=== PATIENT | female | born 1980 | race Caucasian/White ===

== ENCOUNTER 2021-02-15 14:26 | Emergency (ER) | payer OTHER, SELFPAY ==
[2021-02-15 14:29] VITALS: BP 130/80; BP 159/90; PULSE 80; PULSE 96; RESP 18; TEMP 37.2; O2SAT 96; BMI 34.3
== END 2021-02-15 21:15 | disposition left against medical advice (07) ==
PROVIDERS: Emergency Provider Emergency Medicine; PCP Nurse Practitioner Family
DX: F41.1 Generalized anxiety disorder (principal); F43.0 Acute stress reaction
CPT/HCPCS: 99281; 99282

== ENCOUNTER 2021-04-16 23:53 | Emergency (ER) | payer OTHER, SELFPAY ==
--- NOTE | 2021-04-17 00:03 | ED_ITS ---
HPI - Skin/Abscess/Foreign Bdy General Chief complaint: Skin/Abscess/Foreign Body Stated complaint: Spider bite Time Seen by Provider: 04/17/21 00:03 Source: patient Mode of arrival: ambulatory Limitations: no limitations History of Present Illness MD complaint: abscess/boil Onset (ago): week(s) (1) Tetanus up to date: yes Location: generalized (LLQ of abdomen) Severity: moderate Quality: burning Pain Consistency: constant Relieving factors: none Exacerbating factors: palpation Context: other (thinks she was bit by a bug) Associated symptoms: denies other symptoms Treatments prior to arrival: bandages Related Data Previous Rx's Medication Instructions Recorded cephalexin 500 mg capsule 500 mg PO TID 7 Days #21 cap 04/17/21 doxycycline hyclate 100 mg capsule 100 mg PO BID 7 Days #14 cap 04/17/21 ondansetron 4 mg disintegrating 4 mg PO Q8H PRN #20 tab 04/17/21 tablet Allergies Allergy/AdvReac Type Severity Reaction Status Date / Time fluticasone [From FLONASE] Allergy Severe NOSEBLEEDS/ Unverified 03/12/20 16:29 CLAMMY ibuprofen [Ibuprofen] Allergy Intermediate HIVES Unverified 03/12/20 16:29 latex [Latex] Allergy Mild RASH Unverified 03/12/20 16:29 Iodinated Contrast Media Allergy Unknown ITCHY ( Unverified 03/12/20 16:29 [IV Dye, Iodine Containing] CONTRAST FOR CT ) sulfamethoxazole AdvReac Unknown NAUSEA & Unverified 03/12/20 16:29 [From BACTRIM] VOMITING trimethoprim [From BACTRIM] AdvReac Unknown NAUSEA & Unverified 03/12/20 16:29 VOMITING From Advair Diskus Allergy Intermediate SHORTNESS Uncoded 03/12/20 16:29 OF BREATH Advair HFA Allergy Unknown chest pain Uncoded 02/21/12 00:00 Flonase Allergy Unknown headaches, Uncoded 02/21/12 00:00 nose bleeds Ibuprofen Allergy Unknown upset Uncoded 02/21/12 00:00 stomach Latex Gloves Allergy Unknown rash Uncoded 02/21/12 00:00 Sulfa Allergy Unknown hives Uncoded 02/21/12 00:00 Contrast Dye AdvReac Unknown hives Uncoded 07/26/19 00:00 Review of Systems Review of Systems: Constitutional : No Fever, No Chills ENT/Mouth : No sore throat, No Rhinorrhea Eyes: No Eye Pain, No Swelling, No Redness Cardiovascular : No Chest Pain, No SOB Respiratory : No Cough, No Sputum Gastrointestinal : No Nausea, No Vomiting, No Diarrhea, No abdominal Pain Genitourinary : No Dysuria, No Hematuria Musculoskeletal : No joint pain, No Myalgias, No Joint Swelling Skin : No Skin Lesions, positive skin rash Neuro : No Weakness, No Numbness, No Headache [facility] Social History Social History Advance Directives: No Advance Directives Information Provided: No Patient : No Physical Exam Vital Signs: Vital Signs: Last Vital Signs Temp 98.3 F 04/17/21 00:11 Pulse 100 04/17/21 00:11 Resp 16 04/17/21 00:11 BP 112/85 04/17/21 00:11 Pulse Ox 96 04/17/21 00:11 Body Mass Index 42.9 Appearance: Alert. Oriented X3. No acute distress. Eyes: Pupils equal, round and reactive to light. ENT: Pharynx normal. Neck: Normal inspection. Neck supple. CVS: Normal heart rate and rhythm. Pulses normal. Respiratory: No respiratory distress. Breath sounds normal. Abdomen: Soft and LLQ area mild erythema and warmth, small 2cm purulent lesion noted with drainage on its own, no necrosis, no sig extension it is superficial and no fluctuance or induration felt underneath the lesion Skin: Skin warm and dry. Normal skin color. Normal skin turgor. Extremities: No lower extremity edema. No calf ttp Neuro: Oriented X 3. No motor deficit. No sensory deficit. MDM - Skin/Abscess/Foreign Bdy MDM Narrative Medical decision making narrative: 41 yo female here with possible bite to LLQ area has mild cellulitis it is already draining - small 2cm it is very superficial she is not a diabetic not having fevers - at this time will allow area to drain as it already is, PO cephalexin and doxy, anticipate DC home with good wound care precautions Discharge Plan Discharge Clinical Impression: Cellulitis Qualifiers: Site of cellulitis: trunk Site of cellulitis of trunk: abdominal wall Qualified Code(s): L03.311 - Cellulitis of abdominal wall Abscess of skin or subcutaneous tissue Qualifiers: Site of cutaneous abscess: trunk Site of cutaneous abscess of trunk: abdominal wall Qualified Code(s): L02.211 - Cutaneous abscess of abdominal wall Patient Disposition: Home, Self-Care Instructions: Cellulitis (ED), Abscess (ED) Additional Instructions: return to ED for any worsening symptoms or concerns if not better in 24 hours please return or if it is worsening. REMOVE THE GEL in 30 minutes. keep the area clean and covered. do not soak Prescriptions: New doxycycline hyclate 100 mg capsule 100 mg PO BID 7 Days Qty: 14 RF: 0 cephalexin 500 mg capsule 500 mg PO TID 7 Days Qty: 21 RF: 0 ondansetron 4 mg tablet,disintegrating 4 mg PO Q8H PRN (Reason: nausea and vomiting) Qty: 20 RF: 0 Stand Alone Forms: Work/School Release
[2021-04-17 00:11] VITALS: BP 112/85; PULSE 100; RESP 16; TEMP 36.8; O2SAT 96; BMI 42.9
[2021-04-17] MEDS: Ondansetron ODT 4 MG TAB.RAPDIS TRANSLINGU (00:20)
[2021-04-17] MEDS: Lidocaine/Epineph/Tetracaine 3 ML GEL.PF.APP TOPICAL (00:20)
[2021-04-17] MEDS: cephALEXin 500 MG CAPSULE PO (00:20)
== END 2021-04-17 00:36 | disposition home or self-care (01) ==
PROVIDERS: Emergency Provider Emergency Medicine
DX: L03.311 Cellulitis of abdominal wall (principal); L02.211 Cutaneous abscess of abdominal wall; R10.32 Left lower quadrant pain; Z79.899 Other long term (current) drug therapy
CPT/HCPCS: 99283

== ENCOUNTER 2023-01-03 23:30 | Emergency (ER) | payer OTHER, SELFPAY ==
[2023-01-03 23:41] VITALS: BP 151/87; PULSE 102; RESP 20; TEMP 37.1; O2SAT 97; BMI 19.2
--- NOTE | 2023-01-03 23:47 | PC.NURSE ---
pt is refusing to foreign exchange dealer, security called and pt checked for substances. pt is stating that she doesnt want to be here. pt bag taken and to decon.
--- OUTSIDE RECORDS SUMMARY | 2023-01-04 | XMS_ITS | Continuity of Care Document ---
Author Name Unknown Organization [facility] Address [address] [place] [address]- Care Team Providers Care Metal Hanger Name Role Phone Tammy Duarte NP Primary Care Physician [phone] [place] [facility] [place]/17/20 - 02/21/20 [facility]/[address] [address]- [facility] Attending Physician: Tammy Duarte NP Admitting Physician: Tammy Duarte NP Allergies, Adverse Reactions, Alerts Substance Reaction Severity Status Flonase Active Motrin Active Latex Active Advair Diskus Active Immunizations Given and Recorded Vaccine Date Status Refusal Reason influenza virus vaccine, inactivated 04/28/16 Give n Pneumococcal Poly (PPV23) (oldterm) 02/09/07 Given Medications albuterol 0.083% inhalation solution 3 mL = 2.5 mg, Inhalation, Every 6 hours, PRN for wheezing, dx: asthma, # 25 each, 0 Refills, Maintenance, 01/09/20 16:40:00 EDT, Solution, [id number], 166, cm, 12/26/19 7:38:00 EDT, Height Start Date: 01/09/20 Status: Ordered albuterol CFC free 90 mcg/inh inhalation aerosol 2, puffs, Inhalation, 4 times a day, PRN, # 1 each, Refills 6, Tot. Refills 6, Maintenance, 08/13/19 11:20:00 EST, Aerosol, Route to Pharmacy Electronically, [id number], [id number], 166, cm, 08/09/19 14:34:00 EST, Height Start Date: 08/13/19 Stop Date: 03/10/20 Status: Ordered epinephrine 0.3 mg injectable solution See Instructions, Intramuscular Once may repeat if necessary. auto injector, # 2 each, 0 Refills, Soft Stop, 08/22/19 18:49:00 EST, [facility]/pharmacy #[id number], 166, cm, 08/09/19 14:34:00 EST, Height Start Date: 08/22/19 Status: Ordered EpiPen 2-Kelvin 0.3 mg injectable kit = 0.3 mg, Intramuscular, Once, may repeat if necessary. auto injector., # 1 kit, 0 Refills, Soft Stop, 08/20/19 11:50:00 EST, [facility]/pharmacy #[id number], 166, cm, 08/09/19 14:34:00 EST, Height Start Date: 08/20/19 Status: Ordered nebulizer machine with mask and tubing nebulizer machine with mask and tubing, See Instructions, # 1 each, Refills 0, Tot. Refills 0, Maintenance, to use with albuterol solution as needed for asthma. dx: asthma, 01/09/20 16:38:00 EDT, Supply Start Date: 01/09/20 Status: Ordered nicotine 21 mg/24 hr transdermal film, extended release 1 patch, Topically, Daily, to increase the nicotine dose to 21mg, # 30 patch, 1 Refills, Maintenance, 01/09/20 16:31:00 EDT, Patch, [facility]/pharmacy #[id number], 1 patch Topically Daily,Instr:to increase the nicotine dose to 21mg, 166, cm, 12/26/19 7:38:00 EDT,... Start Date: 01/09/20 Status: Ordered salmeterol 50 mcg inhalation powder 1 each = 50 mcg, Inhalation, Every 12 hours, # 28 each, 1 Refills, Maintenance, 01/19/20 14:20:00 EDT, Powder, [facility]/pharmacy #[id number], 1 each Inhalation Every 12 hours, 166, cm, 12/26/19 7:38:00 EDT, Height Start Date: 01/19/20 Status: Ordered Singulair 10 mg oral tablet 10 mg, 1, tablet, By Mouth, Daily, # 30 tablet, Refills 3, Tot. Refills 3, Maintenance, 01/09/20 16:32:00 EDT, Route to Pharmacy Electronically, [facility]/pharmacy #[id number], 166, cm, 12/26/19 7:38:00 EDT, Height Start Date: 01/09/20 Status: Ordered spacer spacer, See Instructions, # 1 each, Refills 0, Tot. Refills 0, Maintenance, to use with albuterol inhaler, 01/09/20 16:37:00 EDT, Supply, 166, cm, 12/26/19 7:38:00 EDT, Height Start Date: 01/09/20 Status: Ordered Social History Social History Type Response Smoking Status Current every day jordan tejada; Tobacco user in household: No; Type: Cigarettes; Other: 1 PACK A DAY; entered on: 04/28/16 Sex
--- OUTSIDE RECORDS SUMMARY | 2023-01-04 00:01 | XMS_ITS | Continuity of Care Document ---
Author Name Unknown Organization [facility] Address [address] [place] [address]- Care Team Providers Care Software Configuration Analyst Name Role Phone Felicia KURTZ, Tammy Guadarrama Primary Care Physician [place] [facility] [place]/15/20 - 02/14/20 [facility]/[address] [address]- [facility] Allergies, Adverse Reactions, Alerts Substance Reaction Severity [...] 11:20:00 EST, Aerosol, Route to Pharmacy Electronically, [id number], [facility]/pharmacy #[id number], 166, cm, 08/09/19 14:34:00 EST, Height Start Date: 08/13/19 Stop Date: 03/10/20 Status: Ordered epinephrine 0.3 mg injectable solution See Instructions, Intramuscular Once may repeat if necessary. auto injector, # 2 each, 0 Refills, Soft Stop, 08/22/19 18:49:00 EST, [facility]/pharmacy #[id number], 166, cm, 08/09/19 14:34:00 EST, Height Start Date: 08/22/19 Status: Ordered EpiPen 2-Kelvin 0.3 mg injectable kit = 0.3 mg, Intramuscular, Once, may repeat if necessary. auto injector., # 1 kit, 0 Refills, Soft Stop, 08/20/19 11:50:00 EST, [facility]/pharmacy #[id number], 166, cm, 08/09/19 14:34:00 EST, Height [...] 1 Refills, Maintenance, 01/09/20 16:31:00 EDT, Patch, [facility]/pharmacy #[id number], 1 patch Topically Daily,Instr:to increase the nicotine dose to 21mg, 166, cm, 12/26/19 7:38:00 EDT,... Start Date: 01/09/20 Status: Ordered salmeterol 50 mcg inhalation powder 1 each = 50 mcg, Inhalation, Every 12 hours, # 28 each, 1 Refills, Maintenance, 01/19/20 14:20:00 EDT, Powder, [facility]/pharmacy #[id number], 1 each Inhalation Every 12 hours, 166, cm, 12/26/19 7:38:00 EDT, Height Start Date: 01/19/20 Status: Ordered Singulair 10 mg oral tablet 10 mg, 1, tablet, By Mouth, Daily, # 30 tablet, Refills 3, Tot. Refills 3, Maintenance, 01/09/20 16:32:00 EDT, Route to Pharmacy Electronically, [facility]/pharmacy #[id number], 166, cm, 12/26/19 7:38:00 EDT, Height [...]
--- OUTSIDE RECORDS SUMMARY | 2023-01-04 00:01 | XMS_ITS | Continuity of Care Document ---
Author Name Unknown Organization [facility] Address [address] [place] [address]- Care Team Providers Care Locomotive Operator Name Role Phone Felicia KURTZ, Tammy Guadarrama Primary Care Physician Encounter [facility] [place] Date(s): 03/25/20 - 04/24/20 [facility]/[address] [address]- [facility] Allergies, Adverse Reactions, Alerts Substance Reaction Severity [...] 11:20:00 EST, Aerosol, Route to Pharmacy Electronically, [id number], [id number], 166, cm, 08/09/19 14:34:00 EST, Height Start Date: 08/13/19 Stop Date: 03/10/20 Status: Ordered buPROPion 300 mg/24 hours (XL) oral tablet, extended release 1 tablet = 300 mg, By Mouth, Daily, do not crush or chew. stop 150 bid and start 300 xl daily in am, # 30 tablet, 3 Refills, Maintenance, 04/09/20 15:07:00 EDT, ER Tablet, [facility]/pharmacy #[id number], 166, cm, 04/07/20 9:41:00 EDT, Height, 111, kg, 04/07/20 9... Start Date: 04/09/20 Status: Ordered epinephrine 0.3 mg injectable solution See Instructions, Intramuscular Once may repeat if necessary. auto injector, # 2 each, 0 Refills, Soft Stop, 08/22/19 18:49:00 EST, [id number], 166, cm, 08/09/19 14:34:00 EST, Height Start Date: 08/22/19 Status: Ordered EpiPen 2-Kelvin 0.3 mg injectable kit = 0.3 mg, Intramuscular, Once, may repeat if necessary. auto injector., # 1 kit, 0 Refills, Soft Stop, 08/20/19 11:50:00 EST, [id number], 166, cm, 08/09/19 14:34:00 EST, Height Start Date: 08/20/19 Status: Ordered Narcan 4 mg/0.1 mL nasal spray = 4 mg, Nares, Both, Once, # 2 each, 3 Refills, Soft Stop, 03/27/20 11:07:00 EDT, [id number], 166, cm, 03/18/20 8:48:00 EDT, Height Start Date: 03/27/20 Status: Ordered nebulizer machine with mask and tubing nebulizer machine with mask and tubing, See Instructions, # 1 each, Refills 0, Tot. Refills 0, Maintenance, to use with albuterol solution as needed for asthma. dx: asthma, 01/09/20 16:38:00 EDT, Supply Start Date: 01/09/20 Status: Ordered salmeterol 50 mcg inhalation powder 1 each = 50 mcg, Inhalation, Every 12 hours, # 28 each, 1 Refills, Maintenance, 03/27/20 10:48:00 EDT, Powder, [facility]/pharmacy #[id number], 1 each Inhalation Every 12 hours, 166, cm, 03/18/20 8:48:00 EDT, Height Start Date: 03/27/20 Status: Ordered sertraline 25 mg oral tablet 1 tablet = 25 mg, By Mouth, Daily, new medication, # 30 tablet, 2 Refills, Maintenance, 04/09/20 15:29:00 EDT, Tablet, [facility]/pharmacy #[id number], 166, cm, 04/07/20 9:41:00 EDT, Height, 111, kg, 04/07/20 9:41:00 EDT, Dry Weight Start Date: 04/09/20 Stop Date: 07/08/20 Status: Ordered Singulair 10 mg oral tablet 10 mg, 1, tablet, By Mouth, Daily, # 30 tablet, Refills 3, Tot. Refills 3, Maintenance, 01/09/20 16:32:00 EDT, Route to Pharmacy Electronically, [facility]/pharmacy #[id number], 166, cm, 12/26/19 7:38:00 EDT, Height Start Date: 01/09/20 Status: Ordered spacer spacer, See Instructions, # 1 each, Refills 0, Tot. Refills 0, Maintenance, to use with albuterol inhaler, 01/09/20 16:37:00 EDT, Supply, 166, cm, 12/26/19 7:38:00 EDT, Height Start Date: 01/09/20 Status: Ordered Social History Social History Type Response Smoking Status 10 or more cigarette s (1/2 pack or more)/day in last 30 days; Tobacco user in household: Yes; Other: Reports increased use due to stress. Looking to cut back, hopeful with Wellbutrin; entered on: 03/31/20 Sex
--- OUTSIDE RECORDS SUMMARY | 2023-01-04 00:01 | XMS_ITS | Continuity of Care Document ---
Author Name Unknown Organization [facility] Address [address] [place] [address]- Care Team Providers Care Order Dispatcher Name Role Phone Felicia KURTZ, Tammy Guadarrama Primary Care Physician Encounter [facility] [place] Date(s): 10/09/20 - 11/08/20 [facility]/[address] [address]- Allergies, Adverse Reactions, Alerts Substance Reaction Severity [...] each, Refills 6, Tot. Refills 6, Maintenance, 06/12/20 16:33:00 EST, Aerosol, Route to Pharmacy Electronically, [id number], [id number], 166, cm, 06/12/20 14:55:00 EST, Hei... Start Date: 06/12/20 Stop Date: 01/08/21 Status: Ordered buPROPion 300 mg/24 hours (XL) oral tablet, extended release 1 tablet = 300 mg, By Mouth, Daily, do not crush or chew. stop 150 bid and start 300 xl daily in am, # 30 tablet, 5 Refills, Maintenance, 08/12/20 16:28:00 EST, ER Tablet, [id number], 166, cm, 06/12/20 14:55:00 EST, Height, 111, kg, 04/07/20... Start Date: 08/12/20 Status: Ordered epinephrine 0.3 mg injectable solution [...] hours, # 28 each, 1 Refills, Maintenance, 06/12/20 16:32:00 EST, Powder, [id number], 1 each Inhalation Every 12 hours, 166, cm, 06/12/20 14:55:00 EST, Height, 111, kg, 04/07/20 9:41:00 EDT, Dry Weight Start Date: 06/12/20 Status: Ordered sertraline 50 mg oral tablet 1 tablet, By Mouth, Daily, # 30 tablet, 3 Refills, Maintenance, 10/26/20 23:22:00 EDT, [id number], 166, cm, 09/18/20 11:41:00 EDT, Height, 111, kg, 04/07/20 9:41:00 EDT, Dry Weight Start Date: 10/26/20 Status: Ordered Singulair 10 mg oral tablet 10 mg, 1, tablet, By Mouth, Daily, # 30 tablet, Refills 5, Tot. Refills 5, Maintenance, 10/09/20 11:45:00 EDT, Route to Pharmacy Electronically, [facility]/pharmacy #[id number], 166, cm, 09/18/20 11:41:00 EDT, Height, 111, kg, 04/07/20 9:41:00 EDT, Dry Weight Start Date: 10/09/20 Status: Ordered spacer spacer, See Instructions, # [...] cut back, hopeful with Wellbutrin; entered on: 09/03/20 Sex
--- OUTSIDE RECORDS SUMMARY | 2023-01-04 00:01 | XMS_ITS | Continuity of Care Document ---
Author Name Unknown Organization [facility] Address [address] [place] [address]- Care Team Providers Care Mining Plant Operator Name Role Phone Felicia KURTZ, Tammy Guadarrama Primary Care Physician En[place] [facility] [place] [id number] Date(s): 01/29/20 - 02/28/20 [facility] [address] [place] [address]- [facility] Attending Physician: Admtr, Ar8 Admitting Physician: Admtr, Ar8 Referring Physician: Admtr, Ar8 Allergies, Adverse Reactions, Alerts Substance Reaction Severity [...] 11:20:00 EST, Aerosol, Route to Pharmacy Electronically, [id number], [id number], 166, cm, 08/09/19 14:34:00 EST, Height Start Date: 08/13/19 Stop Date: 03/10/20 Status: Ordered epinephrine 0.3 mg injectable solution See Instructions, Intramuscular Once may repeat if necessary. auto injector, # 2 each, 0 Refills, Soft Stop, 08/22/19 18:49:00 EST, [facility]/pharmacy #[id number], 166, cm, 08/09/19 14:34:00 EST, Height Start Date: 08/22/19 Status: Ordered EpiPen 2-Kelvin 0.3 mg injectable kit = 0.3 mg, Intramuscular, Once, may repeat if necessary. auto injector., # 1 kit, 0 Refills, Soft Stop, 08/20/19 11:50:00 EST, [facility]/pharmacy #[id number], 166, cm, 08/09/19 14:34:00 [...] 1 Refills, Maintenance, 01/09/20 16:31:00 EDT, Patch, [facility]/pharmacy #[id number], 1 patch Topically Daily,Instr:to increase the nicotine dose to 21mg, 166, cm, 12/26/19 7:38:00 EDT,... Start Date: 01/09/20 Status: Ordered salmeterol 50 mcg inhalation powder 1 each = 50 mcg, Inhalation, Every 12 hours, # 28 each, 1 Refills, Maintenance, 01/19/20 14:20:00 EDT, Powder, [facility]/pharmacy #[id number], 1 each Inhalation Every 12 hours, 166, cm, 12/26/19 7:38:00 EDT, Height Start Date: 01/19/20 Status: Ordered Singulair 10 mg oral tablet 10 mg, 1, tablet, By Mouth, Daily, # 30 tablet, Refills 3, Tot. Refills 3, Maintenance, 01/09/20 16:32:00 EDT, Route to Pharmacy Electronically, [facility]/pharmacy #[id number], 166, cm, 12/26/19 7:38:00 [...]
--- OUTSIDE RECORDS SUMMARY | 2023-01-04 00:01 | XMS_ITS | Continuity of Care Document ---
Author Name Unknown Organization [facility] Address Unknown Care Team Providers Care Catalytic Converter Operator Helper Name Role Phone Xenia KURTZ, Awa Akbar Primary Care Physici an Encounter [facility] [place] Date(s): 04/20/21 - 05/26/21 [facility] Attending Physician: Hang Mcgrath MD Admitting Physician: Hang Mcgrath MD Allergies, Adverse Reactions, Alerts Substance Reaction Severity Status Flonase Active Motrin Active Latex Active Advair Diskus Active Immunizations Given and Recorded Vaccine Date Status Refusal Reason influenza virus vaccine, inactivated 04/28/16 Give n influenza virus vaccine, inactivated 04/10/15 Yanick rded influenza virus vaccine, inactivated 04/16/14 Yanick rded influenza virus vaccine, inactivated 03/14/10 Yanick rded hepatitis B adult vaccine 03/13/15 Recorded hepatitis B adult vaccine 09/12/13 Recorded hepatitis B adult vaccine 04/14/13 Recorded Hepatitis A Adult Vaccine 10/09/14 Recorded Hepatitis A Adult Vaccine 10/13/13 Recorded Pneumococcal Poly (PPV23) (oldterm) 02/09/07 Given Medications [...] 16:33:00 EST, Aerosol, Route to Pharmacy Electronically, [id number], [facility]/pharmacy #[id number], 166, cm, 06/12/20 14:55:00 EST, Hei... Start Date: 06/12/20 Stop Date: 01/08/21 Status: Ordered buPROPion 300 mg/24 hours (XL) oral tablet, extended release 1 tablet = 300 mg, By Mouth, Daily, do not crush or chew, # 30 tablet, 0 Refills, Maintenance, 04/21/21 12:25:00 EDT, ER Tablet, [facility]/pharmacy #[id number], 166, cm, 10/27/20 9:55:00 EDT, Height, 111, kg, 04/07/20 9:41:00 EDT, Dry Weight Start Date: 04/21/21 Status: Ordered cloNIDine 0.2 mg oral tablet 0.2 mg, 1, tablet, By Mouth, 2 times a day, NEED TO CONTACT CLINIC AND GET LABS DONE PRIOR TO NEXT REFILL, # 14 tablet, Refills 0, Tot. Refills 0, Maintenance, 05/21/21 12:13:00 EST, Route to Pharmacy Electronically, [facility]/pharmacy #[id number], Partial fill u... Start Date: 05/21/21 Stop Date: 05/28/21 Status: Ordered epinephrine 0.3 mg injectable solution See Instructions, Intramuscular Once may repeat if necessary. auto injector, # 2 each, 0 Refills, Soft Stop, 08/22/19 18:49:00 EST, [facility]/pharmacy #[id number], 166, cm, 08/09/19 14:34:00 EST, Height Start Date: 08/22/19 Status: Ordered EpiPen 2-Kelvin 0.3 mg injectable kit = 0.3 mg, Intramuscular, Once, may repeat if necessary. auto injector., # 1 kit, 0 Refills, Soft Stop, 08/20/19 11:50:00 EST, [facility]/pharmacy #[id number], 166, cm, 08/09/19 14:34:00 EST, Height Start Date: 08/20/19 Status: Ordered Narcan 4 mg/0.1 mL nasal spray = 4 mg, Nares, Both, Once, # 2 each, 3 Refills, Soft Stop, 03/27/20 11:07:00 EDT, [facility]/pharmacy #[id number], 166, cm, 03/18/20 8:48:00 EDT, Height [...] 1 Refills, Maintenance, 06/12/20 16:32:00 EST, Powder, [facility]/pharmacy #[id number], 1 each Inhalation Every 12 hours, 166, cm, 06/12/20 14:55:00 EST, Height, 111, kg, 04/07/20 9:41:00 EDT, Dry Weight Start Date: 06/12/20 Status: Ordered sertraline 100 mg oral tablet 1.5 tablet = 150 mg, By Mouth, Daily, # 45 tablet, 11 Refills, Maintenance, 04/22/21 14:20:00 EDT, Tablet, [facility]/pharmacy #[id number], Partial fill upon patient request if the prescription is for a schedule II opioid drug., 166, cm, 04/22/21 13:45:00 EDT, Hei... Start Date: 04/22/21 Status: Ordered Singulair 10 mg oral tablet 10 mg, 1, tablet, By Mouth, Daily, # 30 tablet, Refills 5, Tot. Refills 5, Maintenance, 10/09/20 11:45:00 EDT, Route to Pharmacy Electronically, [facility]/pharmacy #[id number], 166, cm, 09/18/20 11:41:00 EDT, [...]
--- OUTSIDE RECORDS SUMMARY | 2023-01-04 00:01 | XMS_ITS | Continuity of Care Document ---
Author Name Unknown Organization [facility] Address [address] [place] [address]- Care Team Providers Care Child Care Centre Director Name Role Phone Felicia KURTZ, Tammy Guadarrama Primary Care Physician Encounter [facility] [place] Date(s): 10/05/20 - 11/04/20 [facility]/[address] [address]- Attending Physician: Not on Staff, Attending MD Allergies, Adverse Reactions, Alerts Substance Reaction [...] 16:33:00 EST, Aerosol, Route to Pharmacy Electronically, [id number], [id number], 166, cm, 06/12/20 14:55:00 EST, Hei... Start Date: 06/12/20 Stop Date: 01/08/21 Status: Ordered buPROPion 300 mg/24 hours (XL) oral tablet, extended release 1 tablet = 300 mg, By Mouth, Daily, do not crush or chew. stop 150 bid and start 300 xl daily in am, # 30 tablet, 5 Refills, Maintenance, 08/12/20 16:28:00 EST, ER Tablet, [facility]/pharmacy #[id number], 166, cm, 06/12/20 14:55:00 EST, Height, [...] Refills, Maintenance, 10/26/20 23:22:00 EDT, [id number], 166, cm, 09/18/20 11:41:00 EDT, Height, 111, kg, 04/07/20 9:41:00 EDT, Dry Weight Start Date: 10/26/20 Status: Ordered Singulair 10 mg oral tablet 10 mg, 1, tablet, By Mouth, Daily, # 30 tablet, Refills 5, Tot. Refills 5, Maintenance, 10/09/20 11:45:00 EDT, Route to Pharmacy Electronically, [facility]/pharmacy #[id number], 166, cm, 09/18/20 11:41:00 EDT, Height, [...]
--- OUTSIDE RECORDS SUMMARY | 2023-01-04 00:01 | XMS_ITS | Continuity of Care Document ---
Author Name Unknown Organization [facility] Address Unknown Care Team Providers Care Fisheries Inspector Name Role Phone Xenia KURTZ, Awa Akbar Primary Care Physici an Encounter [facility] [place] Date(s): 04/21/21 - 06/04/21 [facility] Attending Physician: Xenia KURTZ, Awa Akbar Admitting Physician: Xenia KURTZ, Awa Akbar Allergies, Adverse Reactions, Alerts Substance Reaction Severity [...] each, Refills 6, Tot. Refills 6, Maintenance, 12/18/20 16:33:00 EST, Aerosol, Route to Pharmacy Electronically, [id number], [id number], cm, 06/12/20 14:55:00 EST, Hei... Start Date: 06/12/20 Stop Date: 01/08/21 Status: Ordered buPROPion 300 mg/24 hours (XL) oral tablet, extended release 1 tablet = 300 mg, By Mouth, Daily, do not crush or chew, # 30 tablet, 0 Refills, Maintenance, 04/21/21 12:25:00 EDT, ER Tablet, [facility]/pharmacy #[id number], 166, cm, 10/27/20 9:55:00 EDT, Height, 111, kg, 04/07/20 9:41:00 EDT, Dry Weight Start Date: 04/21/21 Status: Ordered cloNIDine 0.2 mg oral tablet 0.2 mg, 1, tablet, By Mouth, 2 times a day, NEED TO CONTACT CLINIC AND GET LABS DONE PRIOR TO NEXT REFILL, # 14 tablet, Refills 0, Tot. Refills 0, Maintenance, 05/21/21 12:13:00 EST, [id number] u... Start Date: 05/21/21 Stop Date: 05/28/21 Status: Ordered epinephrine 0.3 mg injectable solution See Instructions, Intramuscular Once may repeat if necessary. auto injector, # 2 each, 0 Refills, Soft Stop, 08/22/19 18:49:00 EST, [facility]/pharmacy #[id number], 166, cm, 08/09/19 14:34:00 EST, Height Start Date: 08/22/19 Status: Ordered EpiPen 2-Kelvin 0.3 mg injectable kit = 0.3 mg, Intramuscular, Once, may repeat if necessary. auto injector., # 1 kit, 0 Refills, Soft Stop, 08/20/19 11:50:00 EST, [facility]/pharmacy #[id number], 166, cm, 08/09/19 14:34:00 EST, Height Start Date: 08/20/19 Status: Ordered Narcan 4 mg/0.1 mL nasal spray = 4 mg, Nares, Both, Once, # 2 each, 3 Refills, Soft Stop, 03/27/20 11:07:00 EDT, [facility]/pharmacy #[id number], 166, cm, 03/18/20 8:48:00 EDT, [...] 1 Refills, Maintenance, 06/12/20 16:32:00 EST, Powder, [facility]/pharmacy #[id number], 1 each Inhalation Every 12 hours, 166, cm, 06/12/20 14:55:00 EST, Height, 111, kg, 04/07/20 9:41:00 EDT, Dry Weight Start Date: 06/12/20 Status: Ordered sertraline 100 mg oral tablet 1.5 tablet = 150 mg, By Mouth, Daily, # 45 tablet, 11 Refills, Maintenance, 04/22/21 14:20:00 EDT, Tablet, [facility]/pharmacy #[id number], Partial fill upon patient request if the prescription is for a schedule II opioid drug., 166, cm, 04/22/21 13:45:00 EDT, Hei... Start Date: 04/22/21 Status: Ordered Singulair 10 mg oral tablet 10 mg, 1, tablet, By Mouth, Daily, # 30 tablet, Refills 5, Tot. Refills 5, Maintenance, 10/09/20 11:45:00 EDT, Route to Pharmacy Electronically, [facility]/pharmacy #[id number], 166, cm, 09/18/20 11:41:00 EDT, [...]
--- OUTSIDE RECORDS SUMMARY | 2023-01-04 00:01 | XMS_ITS | Continuity of Care Document ---
Author Name Unknown Organization [facility] Address [address] [place] [address]- Care Team Providers Care Roofing Foreman Name Role Phone Tammy Duarte NP Primary Care Physician [phone] Encounter [facility] [place] Date(s): 05/05/20 - 06/04/20 [facility] [address] [address] Attending Physician: Admtr, [id number] Admitting Physician: Admtr, [id number] Referring Physician: Admtr, [...] 11:20:00 EST, Aerosol, Route to Pharmacy Electronically, [id number], [id number], 166, cm, 08/09/19 14:34:00 EST, Height Start Date: 08/13/19 Stop Date: 03/10/20 Status: Ordered buPROPion 300 mg/24 hours (XL) oral tablet, extended release 1 tablet = 300 mg, By Mouth, Daily, do not crush or chew. stop 150 bid and start 300 xl daily in am, # 30 tablet, 3 Refills, Maintenance, 04/09/20 15:07:00 EDT, ER Tablet, [facility]/pharmacy #[id number], 166, cm, 04/07/20 9:41:00 EDT, Height, 111, kg, 04/07/20 9... Start Date: 04/09/20 Status: Ordered epinephrine 0.3 mg injectable solution See Instructions, Intramuscular Once may repeat if necessary. auto injector, # 2 each, 0 Refills, Soft Stop, 08/22/19 18:49:00 EST, [facility]/pharmacy #[id number], 166, cm, 08/09/19 14:34:00 EST, [...] 3 Refills, Soft Stop, 03/27/20 11:07:00 EDT, [facility]/pharmacy #[id number], 166, cm, 03/18/20 8:48:00 EDT, [...] 1 Refills, Maintenance, 03/27/20 10:48:00 EDT, Powder, [facility]/pharmacy #[id number], 1 each Inhalation Every 12 hours, 166, cm, 03/18/20 8:48:00 EDT, Height Start Date: 03/27/20 Status: Ordered sertraline 25 mg oral tablet 1 tablet = 25 mg, By Mouth, Daily, new medication, # 30 tablet, 2 Refills, Maintenance, 04/09/20 15:29:00 EDT, Tablet, [facility]/pharmacy #[id number], 166, cm, 04/07/20 9:41:00 EDT, Height, 111, kg, 04/07/20 9:41:00 EDT, Dry Weight Start Date: 04/09/20 Stop Date: 07/08/20 Status: Ordered Singulair 10 mg oral tablet 10 mg, 1, tablet, By Mouth, Daily, # 30 tablet, Refills 3, Tot. Refills 3, Maintenance, 01/09/20 16:32:00 EDT, Route to Pharmacy Electronically, [facility]/pharmacy #[id number], 166, cm, 12/26/19 7:38:00 EDT, [...]
--- OUTSIDE RECORDS SUMMARY | 2023-01-04 00:02 | XMS_ITS | Continuity of Care Document ---
Author Name Unknown Organization [facility] Address [address] [place] [address]- Care Team Providers Care Registry Np Name Role Phone Felicia KURTZ, Tammy Guadarrama Primary Care Physician Encounter [facility] [place] Date(s): 01/17/20 - 02/16/20 [facility]/[address] [address]- [facility] Allergies, Adverse Reactions, Alerts Substance Reaction Severity [...] 11:20:00 EST, Aerosol, Route to Pharmacy Electronically, [id number], [facility]/pharmacy #[id number], 166, cm, 08/09/19 14:34:00 EST, Height Start Date: 08/13/19 Stop Date: 03/10/20 Status: Ordered epinephrine 0.3 mg injectable solution See Instructions, Intramuscular Once may repeat if necessary. auto injector, # 2 each, 0 Refills, Soft Stop, 08/22/19 18:49:00 EST, [facility]/pharmacy #[id number], 166, cm, 08/09/19 14:34:00 EST, Height Start Date: 08/22/19 Status: Ordered EpiPen 2-Kelvin 0.3 mg injectable kit = 0.3 mg, Intramuscular, Once, may repeat if necessary. auto injector., # 1 kit, 0 Refills, Soft Stop, 08/20/19 11:50:00 EST, [facility]/pharmacy #[id number], 166, cm, 08/09/19 14:34:00 EST, Height [...] 1 Refills, Maintenance, 01/09/20 16:31:00 EDT, Patch, [facility]/pharmacy #[id number], 1 patch Topically Daily,Instr:to increase the nicotine dose to 21mg, 166, cm, 12/26/19 7:38:00 EDT,... Start Date: 01/09/20 Status: Ordered salmeterol 50 mcg inhalation powder 1 each = 50 mcg, Inhalation, Every 12 hours, # 28 each, 1 Refills, Maintenance, 01/19/20 14:20:00 EDT, Powder, [facility]/pharmacy #[id number], 1 each Inhalation Every 12 hours, 166, cm, 12/26/19 7:38:00 EDT, Height Start Date: 01/19/20 Status: Ordered Singulair 10 mg oral tablet 10 mg, 1, tablet, By Mouth, Daily, # 30 tablet, Refills 3, Tot. Refills 3, Maintenance, 01/09/20 16:32:00 EDT, Route to Pharmacy Electronically, [facility]/pharmacy #[id number], 166, cm, 12/26/19 7:38:00 EDT, Height [...]
--- OUTSIDE RECORDS SUMMARY | 2023-01-04 00:02 | XMS_ITS | Continuity of Care Document ---
Author Name Unknown Organization [facility] Address [address] [place] [address]- Care Team Providers Care Engine Lathe Tender Name Role Phone Tammy Duarte NP Primary Care Physician En[place] [facility] [place] Date(s): 12/20/19 - 01/24/20 [facility]/[address] [address]- [facility] Attending Physician: Tammy Duarte NP Admitting Physician: [...] 11:20:00 EST, Aerosol, Route to Pharmacy Electronically, [id number], [id number], 166, cm, 08/09/19 14:34:00 EST, Height Start Date: 08/13/19 Stop Date: 03/10/20 Status: Ordered epinephrine 0.3 mg injectable solution See Instructions, Intramuscular Once may repeat if necessary. auto injector, # 2 each, 0 Refills, Soft Stop, 08/22/19 18:49:00 EST, [facility]/pharmacy #[id number], 166, cm, 08/09/19 14:34:00 EST, Height Start Date: 08/22/19 Status: Ordered EpiPen 2-Kelvin 0.3 mg injectable kit = 0.3 mg, Intramuscular, Once, may repeat if necessary. auto injector., # 1 kit, 0 Refills, Soft Stop, 08/20/19 11:50:00 EST, [facility]/pharmacy #[id number], 166, cm, 08/09/19 14:34:00 [...] 1 Refills, Maintenance, 01/09/20 16:31:00 EDT, Patch, [facility]/pharmacy #[id number], 1 patch Topically Daily,Instr:to increase the nicotine dose to 21mg, 166, cm, 12/26/19 7:38:00 EDT,... Start Date: 01/09/20 Status: Ordered salmeterol 50 mcg inhalation powder 1 each = 50 mcg, Inhalation, Every 12 hours, # 28 each, 1 Refills, Maintenance, 01/19/20 14:20:00 EDT, Powder, [facility]/pharmacy #[id number], 1 each Inhalation Every 12 hours, 166, cm, 12/26/19 7:38:00 EDT, Height Start Date: 01/19/20 Status: Ordered Singulair 10 mg oral tablet 10 mg, 1, tablet, By Mouth, Daily, # 30 tablet, Refills 3, Tot. Refills 3, Maintenance, 01/09/20 16:32:00 EDT, Route to Pharmacy Electronically, [facility]/pharmacy #[id number], 166, cm, 12/26/19 7:38:00 [...]
--- OUTSIDE RECORDS SUMMARY | 2023-01-04 00:03 | XMS_ITS | Continuity of Care Document ---
Author Name Unknown Organization [facility] Address [address] [place] [address]- Care Team Providers Care Kitchen Stewardess Name Role Phone Felicia KURTZ, Tammy Guadarrama Primary Care Physician Encounter [facility] [place] Date(s): 09/04/20 - 10/04/20 [facility]/[address] [address]- Allergies, Adverse Reactions, Alerts Substance Reaction Severity [...] 16:33:00 EST, Aerosol, Route to Pharmacy Electronically, [id number], [id number], 166, cm, 06/12/20 14:55:00 EST, Hei... Start Date: 06/12/20 Stop Date: 01/08/21 Status: Ordered buPROPion 300 mg/24 hours (XL) oral tablet, extended release 1 tablet = 300 mg, By Mouth, Daily, do not crush or chew. stop 150 bid and start 300 xl daily in am, # 30 tablet, 5 Refills, Maintenance, 08/12/20 16:28:00 EST, ER Tablet, [facility]/pharmacy #[id number], 166, cm, 06/12/20 14:55:00 EST, Height, [...] 1 Refills, Maintenance, 06/12/20 16:32:00 EST, Powder, [facility]/pharmacy #[id number], 1 each Inhalation Every 12 hours, 166, cm, 06/12/20 14:55:00 EST, Height, 111, kg, 04/07/20 9:41:00 EDT, Dry Weight Start Date: 06/12/20 Status: Ordered sertraline 50 mg oral tablet 1 tablet = 50 mg, By Mouth, Daily, # 30 tablet, 3 Refills, Maintenance, 06/12/20 16:10:00 EST, Tablet, [facility]/pharmacy #[id number], Partial fill upon patient request if the prescription is for a schedule II opioid drug., 166, cm, 06/12/20 14:55:00 EST, Height,... Start Date: 06/12/20 Status: Ordered Singulair 10 mg oral tablet 10 mg, 1, tablet, By Mouth, Daily, # 30 tablet, Refills 3, Tot. Refills 3, Maintenance, 06/12/20 16:32:00 EST, Route to Pharmacy Electronically, [facility]/pharmacy #[id number], 166, cm, 06/12/20 14:55:00 EST, Height, 111, kg, 04/07/20 9:41:00 EDT, Dry Weight Start Date: 06/12/20 Status: Ordered spacer spacer, See Instructions, # [...]
--- OUTSIDE RECORDS SUMMARY | 2023-01-04 00:04 | XMS_ITS | Continuity of Care Document ---
Author Name Unknown Organization [facility] Address [address] [place] [address]- Care Team Providers Care Orchid Hand Name Role Phone Xenia KURTZ, Awa Akbar Primary Care Physici an [place] [facility] [place]22 [facility] [address] [place] [address]- Attending Physician: Charleen Puga MD Admitting Physician: Charleen Puga MD Referring Physician: Not on Staff, Referring MD Allergies, Adverse Reactions, Alerts Substance Reaction [...] 16:33:00 EST, Aerosol, Route to Pharmacy Electronically, [id number], [facility]/pharmacy #[id number], 166, cm, 06/12/20 14:55:00 EST, Hei... Start Date: 06/12/20 Stop Date: 01/08/21 Status: Ordered Bactrim DS 800 mg-160 mg oral tablet 1 tablet, By Mouth, 2 times a day, for 10 days, # 20 tablet, 0 Refills, Acute 12/18/22 14:31:00 EDT, 12/08/22 14:31:00 EDT, Tablet, Partial fill upon patient request if the prescription is for a schedule II opioid drug. Start Date: 12/08/22 Stop Date: 12/18/22 Status: Ordered Bactrim DS 800 mg-160 mg oral tablet 1 tablet, By Mouth, 2 times a day, for 10 days, # 20 tablet, 0 Refills, Acute 12/18/22 14:35:00 EDT, 12/08/22 14:35:00 EDT, Tablet, Partial fill upon patient request if the prescription is for a schedule II opioid drug. Start Date: 12/08/22 Stop Date: 12/18/22 Status: Ordered buPROPion 300 mg/24 hours (XL) oral tablet, extended release 1 tablet = 300 mg, By Mouth, Daily, do not crush or chew, # 30 tablet, 0 Refills, Maintenance, 04/21/21 12:25:00 EDT, ER Tablet, [facility]/pharmacy #[id number], 166, cm, 10/27/20 9:55:00 EDT, Height, 111, kg, 04/07/20 9:41:00 EDT, Dry Weight Start Date: 04/21/21 Status: Ordered cephalexin monohydrate 500 mg oral capsule 1 capsule = 500 mg, By Mouth, 4 times a day, for 10 days, # 40 capsule, 0 Refills, Acute 12/18/22 14:31:00 EDT, 12/08/22 14:31:00 EDT, Capsule, Partial fill upon patient request if the prescription is for a schedule II opioid drug. Start Date: 12/08/22 Stop Date: 12/18/22 Status: Ordered cephalexin monohydrate 500 mg oral capsule 1 capsule = 500 mg, By Mouth, 4 times a day, for 10 days, # 40 capsule, 0 Refills, Acute 12/18/22 14:35:00 EDT, 12/08/22 14:35:00 EDT, Capsule, Partial fill upon patient request if the prescription is for a schedule II opioid drug. Start Date: 12/08/22 Stop Date: 12/18/22 Status: Ordered cloNIDine 0.2 mg oral tablet 0.2 mg, 1, tablet, By Mouth, 2 times a day, NEED TO CONTACT CLINIC AND GET LABS DONE PRIOR TO NEXT REFILL, # 14 tablet, Refills 0, Tot. Refills 0, Maintenance, 05/21/21 12:13:00 EST, [id number]... Start Date: 05/21/21 Stop Date: 05/28/21 Status: Ordered epinephrine 0.3 mg injectable solution See Instructions, Intramuscular Once may repeat if necessary. auto injector, # 2 each, 0 Refills, Soft Stop, 08/22/19 18:49:00 EST, [facility]/pharmacy #[id number], 166, cm, 08/09/19 14:34:00 EST, Height Start Date: 08/22/19 Status: Ordered EpiPen 2-Kelvin 0.3 mg injectable kit = 0.3 mg, Intramuscular, Once, may repeat if necessary. auto injector., # 1 kit, 0 Refills, Soft Stop, 08/20/19 11:50:00 EST, [facility]/pharmacy #[id number], 166, cm, 08/09/19 14:34:00 EST, Height Start Date: 08/20/19 Status: Ordered Narcan 4 mg/0.1 mL nasal spray = 4 mg, Nares, Both, Once, # 2 each, 3 Refills, Soft Stop, 03/27/20 11:07:00 EDT, [facility]/pharmacy #[id number], 166, cm, 03/18/20 8:48:00 EDT, Height [...] 1 Refills, Maintenance, 06/12/20 16:32:00 EST, Powder, [facility]/pharmacy #[id number], 1 each Inhalation Every 12 hours, 166, cm, 06/12/20 14:55:00 EST, Height, 111, kg, 04/07/20 9:41:00 EDT, Dry Weight Start Date: 06/12/20 Status: Ordered sertraline 100 mg oral tablet 1.5 tablet = 150 mg, By Mouth, Daily, # 45 tablet, 11 Refills, Maintenance, 04/22/21 14:20:00 EDT, Tablet, [facility]/pharmacy #[id number], Partial fill upon patient request if the prescription is for a schedule II opioid drug., 166, cm, 04/22/21 13:45:00 EDT, Hei... Start Date: 04/22/21 Status: Ordered Singulair 10 mg oral tablet 10 mg, 1, tablet, By Mouth, Daily, # 30 tablet, Refills 5, Tot. Refills 5, Maintenance, 10/09/20 11:45:00 EDT, Route to Pharmacy Electronically, [facility]/pharmacy #[id number], 166, cm, 09/18/20 11:41:00 EDT, Height, 111, kg, 04/07/20 9:41:00 EDT, Dry Weight Start Date: 10/09/20 Status: Ordered spacer spacer, See Instructions, # 1 each, Refills 0, Tot. Refills 0, Maintenance, to use with albuterol inhaler, 01/09/20 16:37:00 EDT, Supply, 166, cm, 12/26/19 7:38:00 EDT, Height Start Date: 01/09/20 Status: Ordered Problem List Condition Confirmation Course Effective Dates Status Health St atus Informant Amenorrhea, secondary 1 Confirmed 10/06/22 Active 1work-up done at [facility], no menses x 3 yrs Social History Social History Type Response Smoking Status 10 or more cigarette s (1/2 pack or more)/day in last 30 days; Tobacco user in household: Yes; Other: Reports increased use due to stress. Looking to cut back, hopeful with Wellbutrin; entered on: 09/03/20 Sex Patient Care team information Care Team Personnel Name: Xenia KURTZ, Awa Akbar Position: [facility] PCO Associate Professional Member Role: PCP Address: Address: [address] [place] [address]- Care Team Related Persons Name: VINNIE PATEL Address: home [address] [place] [id number] Name: RADHA NOGUERA
--- OUTSIDE RECORDS SUMMARY | 2023-01-04 00:04 | XMS_ITS | Continuity of Care Document ---
Author Name Unknown Organization [facility] Address [address] [place] [address]- Care Team Providers Care Rivet Heater Gas Name Role Phone Tammy Duarte NP Primary Care Physician [phone] [place] [facility] [place] 03/16/20 - 04/17/20 [facility] [address]- [facility] Attending Physician: Tammy Duarte NP Admitting Physician: Tammy Duarte NP Referring Physician: Tammy Duarte NP Allergies, Adverse Reactions, [...] 11:20:00 EST, Aerosol, Route to Pharmacy Electronically, [id number], [id number], 166, cm, 08/09/19 14:34:00 EST, Height Start Date: 08/13/19 Stop Date: 03/10/20 Status: Ordered buPROPion 300 mg/24 hours (XL) oral tablet, extended release 1 tablet = 300 mg, By Mouth, Daily, do not crush or chew. stop 150 bid and start 300 xl daily in am, # 30 tablet, 3 Refills, Maintenance, 04/09/20 15:07:00 EDT, ER Tablet, [facility]/pharmacy #[id number], 166, cm, 04/07/20 9:41:00 EDT, Height, 111, kg, 04/07/20 9... Start Date: 04/09/20 Status: Ordered epinephrine 0.3 mg injectable solution See Instructions, Intramuscular Once may repeat if necessary. auto injector, # 2 each, 0 Refills, Soft Stop, 08/22/19 18:49:00 EST, [facility]/pharmacy #[id number], 166, cm, 08/09/19 14:34:00 EST, Height [...] 3 Refills, Soft Stop, 03/27/20 11:07:00 EDT, [facility]/pharmacy #[id number], 166, cm, 03/18/20 8:48:00 EDT, Height [...] 1 Refills, Maintenance, 03/27/20 10:48:00 EDT, Powder, [facility]/pharmacy #[id number], 1 each Inhalation Every 12 hours, 166, cm, 03/18/20 8:48:00 EDT, Height Start Date: 03/27/20 Status: Ordered sertraline 25 mg oral tablet 1 tablet = 25 mg, By Mouth, Daily, new medication, # 30 tablet, 2 Refills, Maintenance, 04/09/20 15:29:00 EDT, Tablet, [facility]/pharmacy #[id number], 166, cm, 04/07/20 9:41:00 EDT, Height, 111, kg, 04/07/20 9:41:00 EDT, Dry Weight Start Date: 04/09/20 Stop Date: 07/08/20 Status: Ordered Singulair 10 mg oral tablet 10 mg, 1, tablet, By Mouth, Daily, # 30 tablet, Refills 3, Tot. Refills 3, Maintenance, 01/09/20 16:32:00 EDT, Route to Pharmacy Electronically, [facility]/pharmacy #[id number], 166, cm, 12/26/19 7:38:00 EDT, Height [...]
--- OUTSIDE RECORDS SUMMARY | 2023-01-04 00:05 | XMS_ITS | Continuity of Care Document ---
Author Name Unknown Organization [facility] ter Address [address] [place] [address]- Care Team Providers Care Hydro Mechanic Name Role Phone Xenia KURTZ, Awa Akbar Primary Care Physici an [place] [facility] [place] - 12/08/[address] [address]- Encounter Diagnosis Abscess(Final) - 12/08/22 Discharge Disposition: A-D/C Home Attending Physician: Tom Soto MD Admitting Physician: Tom Soto MD Referring Physician: Not on Staff, Referring [...] 16:33:00 EST, Aerosol, Route to Pharmacy Electronically, [id number], [facility]/pharmacy #[id number], 166, cm, 06/12/20 14:55:00 EST, [...] Refills, Maintenance, 04/21/21 12:25:00 EDT, ER Tablet, [facility]/pharmacy #[id number], 166, cm, 10/27/20 9:55:00 EDT, [...] 05/21/21 12:13:00 EST, Route to Pharmacy Electronically, [facility]/pharmacy #[id number], Partial fill u... Start Date: 05/21/21 Stop Date: 05/28/21 Status: Ordered epinephrine 0.3 mg injectable solution See Instructions, Intramuscular Once may repeat if necessary. auto injector, # 2 each, 0 Refills, Soft Stop, 08/22/19 18:49:00 EST, [facility]/pharmacy #[id number], 166, cm, 08/09/19 14:34:00 EST, Height Start Date: 08/22/19 Status: Ordered EpiPen 2-Kelvin 0.3 mg injectable kit = 0.3 mg, Intramuscular, Once, may repeat if necessary. auto injector., # 1 kit, 0 Refills, Soft Stop, 08/20/19 11:50:00 EST, [facility]/pharmacy #[id number], 166, cm, 08/09/19 14:34:00 EST, Height Start Date: 08/20/19 Status: Ordered Narcan 4 mg/0.1 mL nasal spray = 4 mg, Nares, Both, Once, # 2 each, 3 Refills, Soft Stop, 03/27/20 11:07:00 EDT, [facility]/pharmacy #[id number], 166, cm, 03/18/20 8:48:00 EDT, [...] 1 Refills, Maintenance, 06/12/20 16:32:00 EST, Powder, [facility]/pharmacy #[id number], 1 each Inhalation Every 12 hours, 166, cm, 06/12/20 14:55:00 EST, Height, 111, kg, 04/07/20 9:41:00 EDT, Dry Weight Start Date: 06/12/20 Status: Ordered sertraline 100 mg oral tablet 1.5 tablet = 150 mg, By Mouth, Daily, # 45 tablet, 11 Refills, Maintenance, 04/22/21 14:20:00 EDT, Tablet, [facility]/pharmacy #[id number], Partial fill upon patient request if the prescription is for a schedule II opioid drug., 166, cm, 04/22/21 13:45:00 EDT, Hei... Start Date: 04/22/21 Status: Ordered Singulair 10 mg oral tablet 10 mg, 1, tablet, By Mouth, Daily, # 30 tablet, Refills 5, Tot. Refills 5, Maintenance, 10/09/20 11:45:00 EDT, Route to Pharmacy Electronically, [facility]/pharmacy #[id number], 166, cm, 09/18/20 11:41:00 EDT, [...] 1 Confirmed 10/06/22 Active 1work-up done at [facility], no menses x 3 yrs Results Orders for Microbiology Reports Name Date Wound Superficial Culture W/ Gram Smear (Culture Wound Superficial w/ Gram Smear) 12/08/22 Microbiology Reports TEST:Superficial Wound Culture STATUS:Unauthenticated BODY SITE: SOURCE:SWAB1 COLLECTED DATE/TIME:12/08/22 2:20 PM Superficial Wound Culture SPECIMEN DESCRIPTION : SWAB ARM LT SPECIAL REQUESTS : NONE GRAM STAIN : 4+ WHITE BLOOD CELLS 1+ GRAM POSITIVE COCCI REPORT STATUS : PRELIMINARY REPORT Vital Signs Most recent to oldest [Reference Range]: 1 2 3 Height 160 cm (12/08/22 2:59 PM) 160 cm (12/08/22 2:45 PM) 160 cm (12/08/22 11:04 AM) Weight 92 kg (12/08/22 2:59 PM) Oxygen Saturation [94-100 %] 100 % (12/08/22 2:45 PM) 100 % (12/08/22 1:14 PM) 98 % (12/08/22 11:04 AM) Pulse Rate [55-90 bpm] 74 bpm (12/08/22 2:45 PM) 69 bpm (12/08/22 1:14 PM) 66 bpm (12/08/22 11:04 AM) Blood Pressure [90-138/55-84 mm Hg] 148/96mm Hg *H* (12/08/22 2:45 PM) 139/80mm Hg *H* (12/08/22 1:14 PM) 159/100mm Hg *H* (12/08/22 11:04 AM) Respiratory Rate [16-30 br/min] 16 br/min (12/08/22 2:45 PM) Temperature [96.8-100.4 DegF] 97.9 DegF (12/08/22 2:45 PM) 97.7 DegF (12/08/22 1:14 PM) 98.4 DegF (12/08/22 11:04 AM) Mode of Delivery (Oxygen) Room air (12/08/22 2:45 PM) Room air (12/08/22 1:14 PM) Room air (12/08/22 11:04 AM) Blood pressure sites Arm, right (12/08/22 1:14 PM) Arm, left (12/08/22 11:04 AM) Temperature Route Oral (12/08/22 2:45 PM) Oral (12/08/22 1:14 PM) Oral (12/08/22 11:04 AM) Dry Weight 92 kg (12/08/22 2:59 PM) 92 kg (12/08/22 2:45 PM) 92 kg (12/08/22 11:04 AM) Dry Weight Obtained Via Patient/family s tated (12/08/22 11:04 AM) Social History Social History Type Response Smoking Status 10 or more cigarette s (1/2 pack or more)/day in last 30 days; Tobacco user in household: Yes; Other: Reports increased use due to stress. Looking to cut back, hopeful with Wellbutrin; entered on: 09/03/20 Sex Note * Tom Soto MD: PERFORM Event Display: Patient Education Leaflets Authored Date: [id number] Abscess (Incision & Drainage) ?? [id number] Abscess (Incision & Drainage) An abscess is sometimes called a boil. It happens when bacteria get trapped under the skin and start to grow. Pus forms inside the abscess as the body responds to the bacteria. An abscess can happen with an insect bite, ingrown hair, blocked oil gland, pimple, cyst, or puncture wound. Your healthcare provider has drained the pus from your abscess. If the abscess pocket was large, your provider may have put in gauze packing. Your provider will need to remove or replace it on your next visit. Antibiotics may have been prescribed if the infection is spreading around the wound. But you may not need them to treat a simple abscess. The wound??will take about 1 to 2 weeks to heal, depending on the size of the abscess. Healthy tissue will grow from the bottom and sides of the opening until it seals over. Home care These tips can help your wound heal: ??? The wound may drain for the first 2 days. Cover the wound with a clean dry dressing. Change the??dressing if it becomes soaked with blood or pus. ??? If a gauze packing was placed inside the abscess pocket, you may be told to remove it yourself. You may do this in the shower. Once the packing is removed, you should wash the area in the shower, or clean thearea as directed by your healthcare provider. Continue to do this until the skin opening has closed. Carefully throw away the packing to prevent spreading any infection. Make sure you wash your handsafter changing the packing or cleaning the wound. ??? If you were prescribed antibiotics, take themas directed until they are all gone. ??? You may use acetaminophen or ibuprofen to control pain, unless another pain medicine was prescribed.??If you have liver disease or ever had a stomach ulcer, talk with your healthcare provider before using these medicines. ?? Follow-up care Follow up with your healthcare provider, or as advised. If a gauze packing was put in your wound, it should be removed in 1 to 2 days, or as directed. Check your wound every day for any signs that the infection is getting worse. The signs are listed below. ?? When to get medical advice Call your healthcare provider right away if any of these occur: ??? Increasing redness or swelling ??? Red streaks in the skin leading away from the wound ??? Increasing local pain or swelling ??? Continued pus draining from the wound 2 days after treatment ??? Fever of 100.4??F (38??C) or higher, or as directed by your provider ??? Boil returns after treatment ?? Last Reviewed Date: 2021 ?? [id number] [employer]. All rights reserved. This information is not intended as a substitute for professional medical care. Always follow your healthcare professional's instructions. ?? Patient Care team information Care Team Personnel Name: Xenia KURTZ, Awa Akbar Position: [facility] PCO Associate Professional Member Role: PCP Address: Address: [address] [place] [address]- Name: Mervat Lin RN Position: [facility] ED RN W/OE and Tasks Member Role: Patient Care Provider Name: Tom Soto MD Position: [facility] ED Medicine MD Member Role: Admitting Physician Address: Address: [address] [place] [address]- Care Team Related Persons Name: VINNIE PATEL Address: home [address] [place] [id number] Name: RADHA NOGUERA
--- OUTSIDE RECORDS SUMMARY | 2023-01-04 00:05 | XMS_ITS | Continuity of Care Document ---
Author Name Unknown Organization [facility] Address [address] [place] [address]- Care Team Providers Care Regional Psychiatric Director Name Role Phone Felicia KURTZ, Tammy Guadarrama Primary Care Physician Encounter [place] Date(s): 03/16/20 - 04/15/20 [facility]/[address] [address]- [facility] Allergies, Adverse Reactions, Alerts Substance Reaction [...] 11:20:00 EST, Aerosol, Route to Pharmacy Electronically, [id number], [id number], 166, cm, 08/09/19 14:34:00 EST, Height Start Date: 08/13/19 Stop Date: 03/10/20 Status: Ordered buPROPion 300 mg/24 hours (XL) oral tablet, extended release 1 tablet = 300 mg, By Mouth, Daily, do not crush or chew. stop 150 bid and start 300 xl daily in am, # 30 tablet, 3 Refills, Maintenance, 04/09/20 15:07:00 EDT, ER Tablet, [facility]/pharmacy #[id number], 166, cm, 04/07/20 9:41:00 EDT, Height, [...] 1 Refills, Maintenance, 03/27/20 10:48:00 EDT, Powder, [facility]/pharmacy #[id number], 1 each Inhalation Every 12 hours, 166, cm, 03/18/20 8:48:00 EDT, Height Start Date: 03/27/20 Status: Ordered sertraline 25 mg oral tablet 1 tablet = 25 mg, By Mouth, Daily, new medication, # 30 tablet, 2 Refills, Maintenance, 04/09/20 15:29:00 EDT, Tablet, [facility]/pharmacy #[id number], 166, cm, 04/07/20 9:41:00 EDT, Height, 111, kg, 04/07/20 9:41:00 EDT, Dry Weight Start Date: 04/09/20 Stop Date: 07/08/20 Status: Ordered Singulair 10 mg oral tablet 10 mg, 1, tablet, By Mouth, Daily, # 30 tablet, Refills 3, Tot. Refills 3, Maintenance, 01/09/20 16:32:00 EDT, Route to Pharmacy Electronically, [facility]/pharmacy #[id number], 166, cm, 12/26/19 7:38:00 [...]
--- OUTSIDE RECORDS SUMMARY | 2023-01-04 00:05 | XMS_ITS | Continuity of Care Document ---
Author Name Unknown Organization [facility] Address Unknown Care Team Providers Care Wash Driller Helper Name Role Phone Xenia KURTZ, Awa Akbar Primary Care Physici an [place] [facility] [place] 05[place]23[place]21 [facility] Attending Physician: Junior Alvarez MD Allergies, Adverse Reactions, Alerts Substance Reaction [...] 16:33:00 EST, Aerosol, Route to Pharmacy Electronically, [id number], [facility]/pharmacy #[id number], 166, cm, 06/12/20 14:55:00 EST, Hei... Start Date: 06/12/20 Stop Date: 01/08/21 Status: Ordered buPROPion 300 mg/24 hours (XL) oral tablet, extended release 1 tablet = 300 mg, By Mouth, Daily, do not crush or chew, # 30 tablet, 0 Refills, Maintenance, 04/21/21 12:25:00 EDT, ER Tablet, [facility]/pharmacy #[id number], 166, cm, 10/27/20 9:55:00 [...] 05/21/21 12:13:00 EST, Route to Pharmacy Electronically, [facility]/pharmacy #[id number], Partial fill u... Start Date: 05/21/21 Stop Date: 05/28/21 Status: Ordered epinephrine 0.3 mg injectable solution See Instructions, Intramuscular Once may repeat if necessary. auto injector, # 2 each, 0 Refills, Soft Stop, 08/22/19 18:49:00 EST, [facility]/pharmacy #[id number], 166, cm, 08/09/19 14:34:00 EST, Height Start Date: 08/22/19 Status: Ordered EpiPen 2-Kelvin 0.3 mg injectable kit = 0.3 mg, Intramuscular, Once, may repeat if necessary. auto injector., # 1 kit, 0 Refills, Soft Stop, 08/20/19 11:50:00 EST, [facility]/pharmacy #[id number], 166, cm, 08/09/19 14:34:00 EST, Height Start Date: 08/20/19 Status: Ordered Narcan 4 mg/0.1 mL nasal spray = 4 mg, Nares, Both, Once, # 2 each, 3 Refills, Soft Stop, 03/27/20 11:07:00 EDT, [facility]/pharmacy #[id number], 166, cm, 03/18/20 8:48:00 [...] 1 Refills, Maintenance, 06/12/20 16:32:00 EST, Powder, [facility]/pharmacy #[id number], 1 each Inhalation Every 12 hours, 166, cm, 06/12/20 14:55:00 EST, Height, 111, kg, 04/07/20 9:41:00 EDT, Dry Weight Start Date: 06/12/20 Status: Ordered sertraline 100 mg oral tablet 1.5 tablet = 150 mg, By Mouth, Daily, # 45 tablet, 11 Refills, Maintenance, 04/22/21 14:20:00 EDT, Tablet, [facility]/pharmacy #[id number], Partial fill upon patient request if the prescription is for a schedule II opioid drug., 166, cm, 04/22/21 13:45:00 EDT, Hei... Start Date: 04/22/21 Status: Ordered Singulair 10 mg oral tablet 10 mg, 1, tablet, By Mouth, Daily, # 30 tablet, Refills 5, Tot. Refills 5, Maintenance, 10/09/20 11:45:00 EDT, Route to Pharmacy Electronically, [facility]/pharmacy #[id number], 166, cm, 09/18/20 11:41:00 [...]
--- OUTSIDE RECORDS SUMMARY | 2023-01-04 00:05 | XMS_ITS | Continuity of Care Document ---
Author Name Unknown Organization [facility] Address [address] [place] [address]- Care Team Providers Care Precision Lens Polisher Name Role Phone Felicia KURTZ, Tammy Guadarrama Primary Care Physician [phone] [id number] Date(s): 10/07/20 - 11/07/20 [facility]/[address] [address]- Attending Physician: Xenia KURTZ, Awa Akbar Admitting Physician: Xenia KURTZ, Awa Akbar Referring Physician: Tammy Duarte NP Allergies, Adverse [...] 16:33:00 EST, Aerosol, Route to Pharmacy Electronically, [id number], [id number], 166, cm, 06/12/20 14:55:00 EST, Hei... Start Date: 06/12/20 Stop Date: 01/08/21 Status: Ordered buPROPion 300 mg/24 hours (XL) oral tablet, extended release 1 tablet = 300 mg, By Mouth, Daily, do not crush or chew. stop 150 bid and start 300 xl daily in am, # 30 tablet, 5 Refills, Maintenance, 08/12/20 16:28:00 EST, ER Tablet, [facility]/pharmacy #[id number], 166, cm, 06/12/20 14:55:00 EST, Height, 111, kg, 04/07/20... Start Date: 08/12/20 Status: Ordered epinephrine 0.3 mg injectable solution See Instructions, Intramuscular Once may repeat if necessary. auto injector, # 2 each, 0 Refills, Soft Stop, 08/22/19 18:49:00 EST, [facility]/pharmacy #[id number], 166, cm, 08/09/19 14:34:00 EST, Height Start Date: 08/22/19 Status: Ordered EpiPen 2-Kelvin 0.3 mg injectable kit = 0.3 mg, Intramuscular, Once, may repeat if necessary. auto injector., # 1 kit, 0 Refills, Soft Stop, 08/20/19 11:50:00 EST, [facility]/pharmacy #[id number], 166, cm, 08/09/19 14:34:00 EST, Height Start Date: 08/20/19 Status: Ordered Narcan 4 mg/0.1 mL nasal spray = 4 mg, Nares, Both, Once, # 2 each, 3 Refills, Soft Stop, 03/27/20 11:07:00 EDT, [facility]/pharmacy #[id number], 166, cm, 03/18/20 8:48:00 EDT, [...] 1 Refills, Maintenance, 06/12/20 16:32:00 EST, Powder, [facility]/pharmacy #[id number], 1 each Inhalation Every 12 hours, 166, cm, 06/12/20 14:55:00 EST, Height, 111, kg, 04/07/20 9:41:00 EDT, Dry Weight Start Date: 06/12/20 Status: Ordered sertraline 50 mg oral tablet 1 tablet, By Mouth, Daily, # 30 tablet, 3 Refills, Maintenance, 10/26/20 23:22:00 EDT, [id number], 166, cm, 09/18/20 11:41:00 EDT, Height, 111, kg, 04/07/20 9:41:00 EDT, Dry Weight Start Date: 10/26/20 Status: Ordered Singulair 10 mg oral tablet 10 mg, 1, tablet, By Mouth, Daily, # 30 tablet, Refills 5, Tot. Refills 5, Maintenance, 10/09/20 11:45:00 EDT, Route to Pharmacy Electronically, [facility]/pharmacy #[id number], 166, cm, 09/18/20 11:41:00 EDT, [...]
--- OUTSIDE RECORDS SUMMARY | 2023-01-04 00:05 | XMS_ITS | Continuity of Care Document ---
Author Name Unknown Organization [facility] Address [address] [place] [address]- Care Team Providers Care Professor Of Exercise Science Name Role Phone Felicia KURTZ, Tammy Guadarrama Primary Care Physician Encounter [facility] Date(s): 08/09/19 - 08/19/19 [facility] [place] [address] [place] [address]- [facility] Attending Physician: Admtr, Ray8 Admitting Physician: AdmtrCathleen Referring Physician: Admtr, Ar8 Allergies, Adverse Reactions, Alerts Substance Reaction Severity Status Flonase Active Motrin Active Latex Active Advair Diskus Active Immunizations Given and Recorded Vaccine Date Status Refusal Reason influenza virus vaccine, inactivated 04/28/16 Give n Pneumococcal Poly (PPV23) (oldterm) 02/09/07 Given Medications albuterol CFC free 90 mcg/inh inhalation aerosol 2, puffs, Inhalation, 4 times a day, PRN, # 1 each, Refills 6, Tot. Refills 6, Maintenance, 08/13/19 11:20:00 EST, Aerosol, Route to Pharmacy Electronically, [id number], [id number], 166, cm, 08/09/19 14:34:00 EST, Height Start Date: 08/13/19 Stop Date: 03/10/20 Status: Ordered EpiPen 2-Kelvin 0.3 mg injectable kit = 0.3 mg, Intramuscular, Once, # 1 kit, 0 Refills, Soft Stop, 08/13/19 11:22:00 EST, [id number], 166, cm, 08/09/19 14:34:00 EST, Height Start Date: 08/13/19 Status: Ordered Social History Social History Type Response Smoking Status Current every day jordan tejada; Tobacco user in household: No; Type: Cigarettes; Other: 1 PACK A DAY; entered on: 04/28/16 Sex
--- OUTSIDE RECORDS SUMMARY | 2023-01-04 00:05 | XMS_ITS | Continuity of Care Document ---
Author Name Unknown Organization [facility] Address [address] [place] [address]- Care Team Providers Care Hr Recruiter Name Role Phone Felicia KURTZ, Tammy Guadarrama Primary Care Physician Encounter [facility] [place] Date(s): 04/02/20 - 05/02/20 [facility]/[address] [address]- Allergies, Adverse Reactions, Alerts Substance Reaction Severity [...] 11:20:00 EST, Aerosol, Route to Pharmacy Electronically, [id number], [id number], 166, cm, 08/09/19 14:34:00 EST, Height Start Date: 08/13/19 Stop Date: 03/10/20 Status: Ordered buPROPion 300 mg/24 hours (XL) oral tablet, extended release 1 tablet = 300 mg, By Mouth, Daily, do not crush or chew. stop 150 bid and start 300 xl daily in am, # 30 tablet, 3 Refills, Maintenance, 04/09/20 15:07:00 EDT, ER Tablet, [facility]/pharmacy #[id number], 166, cm, 04/07/20 9:41:00 EDT, [...] 1 Refills, Maintenance, 03/27/20 10:48:00 EDT, Powder, [facility]/pharmacy #[id number], 1 each Inhalation Every 12 hours, 166, cm, 03/18/20 8:48:00 EDT, Height Start Date: 03/27/20 Status: Ordered sertraline 25 mg oral tablet 1 tablet = 25 mg, By Mouth, Daily, new medication, # 30 tablet, 2 Refills, Maintenance, 04/09/20 15:29:00 EDT, Tablet, [facility]/pharmacy #[id number], 166, cm, 04/07/20 9:41:00 EDT, Height, 111, kg, 04/07/20 9:41:00 EDT, Dry Weight Start Date: 04/09/20 Stop Date: 07/08/20 Status: Ordered Singulair 10 mg oral tablet 10 mg, 1, tablet, By Mouth, Daily, # 30 tablet, Refills 3, Tot. Refills 3, Maintenance, 01/09/20 16:32:00 EDT, Route to Pharmacy Electronically, [facility]/pharmacy #[id number], 166, cm, 12/26/19 7:38:00 EDT, [...]
--- OUTSIDE RECORDS SUMMARY | 2023-01-04 00:05 | XMS_ITS | Continuity of Care Document ---
Author Name Unknown Organization [facility] Address [address] [place] [address]- Care Team Providers Care Family Court Registrar Name Role Phone Felicia KURTZ, Tammy Guadarrama Primary Care Physician Encounter [facility] [id number] Date(s): 10/27/20 - 11/26/20 [facility] [address] [address]- Attending Physician: AdmCathleen graves Admitting Physician: AdmtrCathleen Referring Physician: AdmtrCathleen Allergies, Adverse Reactions, Alerts Substance Reaction Severity [...] 16:33:00 EST, Aerosol, Route to Pharmacy Electronically, [id number], [id number], 166, cm, 06/12/20 14:55:00 EST, Hei... Start Date: 06/12/20 Stop Date: 01/08/21 Status: Ordered buPROPion 300 mg/24 hours (XL) oral tablet, extended release 1 tablet = 300 mg, By Mouth, Daily, do not crush or chew. stop 150 bid and start 300 xl daily in am, # 30 tablet, 5 Refills, Maintenance, 08/12/20 16:28:00 EST, ER Tablet, [facility]/pharmacy #[id number], 166, cm, 06/12/20 14:55:00 EST, Height, 111, kg, 04/07/20... Start Date: 08/12/20 Status: Ordered epinephrine 0.3 mg injectable solution See Instructions, Intramuscular Once may repeat if necessary. auto injector, # 2 each, 0 Refills, Soft Stop, 08/22/19 18:49:00 EST, [facility]/pharmacy #[id number], 166, cm, 08/09/19 14:34:00 EST, Height Start Date: 08/22/19 Status: Ordered EpiPen 2-Kelvin 0.3 mg injectable kit = 0.3 mg, Intramuscular, Once, may repeat if necessary. auto injector., # 1 kit, 0 Refills, Soft Stop, 08/20/19 11:50:00 EST, [facility]/pharmacy #[id number], 166, cm, 08/09/19 14:34:00 EST, Height Start Date: 08/20/19 Status: Ordered Narcan 4 mg/0.1 mL nasal spray = 4 mg, Nares, Both, Once, # 2 each, 3 Refills, Soft Stop, 03/27/20 11:07:00 EDT, [facility]/pharmacy #[id number], 166, cm, 03/18/20 8:48:00 EDT, Height [...] hours, # 28 each, 1 Refills, Maintenance, 12/18/20 16:32:00 EST, Powder, [facility]/pharmacy #[id number], 1 each Inhalation Every 12 hours, 166, cm, 06/12/20 14:55:00 EST, Height, 111, kg, 04/07/20 9:41:00 EDT, Dry Weight Start Date: 06/12/20 Status: Ordered sertraline 50 mg oral tablet 1 tablet, By Mouth, Daily, # 30 tablet, 3 Refills, Maintenance, 10/26/20 23:22:00 EDT, [id number], 166, cm, 09/18/20 11:41:00 EDT, Height, 111, kg, 04/07/20 9:41:00 EDT, Dry Weight Start Date: 10/26/20 Status: Ordered Singulair 10 mg oral tablet 10 mg, 1, tablet, By Mouth, Daily, # 30 tablet, Refills 5, Tot. Refills 5, Maintenance, 10/09/20 11:45:00 EDT, Route to Pharmacy Electronically, [facility]/pharmacy #[id number], 166, cm, 09/18/20 11:41:00 EDT, Height, [...]
--- OUTSIDE RECORDS SUMMARY | 2023-01-04 00:05 | XMS_ITS | Continuity of Care Document ---
Author Name Unknown Organization [facility] Address [address] [place] [address]- Care Team Providers Care Communications Instructor Name Role Phone Felicia KURTZ, Tammy Guadarrama Primary Care Physician [phone] Encounter [facility] [place] [facility] [id number] Date(s): 06/12/20 - 07/12/20 [facility] [address] [address]- Attending Physician: AdmCathleen graves Admitting Physician: AdmtrCathleen [...] 16:33:00 EST, Aerosol, Route to Pharmacy Electronically, [id number], [id number], 166, cm, 06/12/20 14:55:00 EST, Hei... Start Date: 06/12/20 Stop Date: 01/08/21 Status: Ordered buPROPion 300 mg/24 hours (XL) oral tablet, extended release 1 tablet = 300 mg, By Mouth, Daily, do not crush or chew. stop 150 bid and start 300 xl daily in am, # 30 tablet, 1 Refills, Maintenance, 06/12/20 16:31:00 EST, ER Tablet, [facility]/pharmacy #[id number], Duplicate rx-Original rx sent 04/09/20. Remaining refills... Start Date: 06/12/20 Status: Ordered epinephrine 0.3 mg injectable solution See Instructions, Intramuscular Once may repeat if necessary. auto injector, # 2 each, 0 Refills, Soft Stop, 08/22/19 18:49:00 EST, [facility]/pharmacy #[id number], 166, cm, 08/09/19 14:34:00 EST, Height Start Date: 08/22/19 Status: Ordered EpiPen 2-Kelvin 0.3 mg injectable kit = 0.3 mg, Intramuscular, Once, may repeat if necessary. auto injector., # 1 kit, 0 Refills, Soft Stop, 08/20/19 11:50:00 EST, [facility]/pharmacy #[id number], 166, cm, 08/09/19 14:34:00 EST, Height Start Date: 08/20/19 Status: Ordered Narcan 4 mg/0.1 mL nasal spray = 4 mg, Nares, Both, Once, # 2 each, 3 Refills, Soft Stop, 03/27/20 11:07:00 EDT, [facility]/pharmacy #[id number], 166, cm, 03/18/20 8:48:00 [...] 1 Refills, Maintenance, 06/12/20 16:32:00 EST, Powder, [facility]/pharmacy #[id number], 1 each Inhalation Every 12 hours, 166, cm, 06/12/20 14:55:00 EST, Height, 111, kg, 04/07/20 9:41:00 EDT, Dry Weight Start Date: 06/12/20 Status: Ordered sertraline 50 mg oral tablet 1 tablet = 50 mg, By Mouth, Daily, # 30 tablet, 3 Refills, Maintenance, 06/12/20 16:10:00 EST, Tablet, [facility]/pharmacy #[id number], Partial fill upon patient request if the prescription is for a schedule II opioid drug., 166, cm, 06/12/20 14:55:00 EST, Height,... Start Date: 06/12/20 Status: Ordered Singulair 10 mg oral tablet 10 mg, 1, tablet, By Mouth, Daily, # 30 tablet, Refills 3, Tot. Refills 3, Maintenance, 06/12/20 16:32:00 EST, Route to Pharmacy Electronically, [facility]/pharmacy #[id number], 166, cm, 06/12/20 14:55:00 [...] cut back, hopeful with Wellbutrin; entered on: 06/12/20 Sex
--- OUTSIDE RECORDS SUMMARY | 2023-01-04 00:05 | XMS_ITS | Continuity of Care Document ---
Author Name Unknown Organization [facility] Address [address] [place] [address]- Care Team Providers Care Tube Carrier Name Role Phone Felicia KURTZ, Tammy Guadarrama Primary Care Physician [place] [facility] [place](s): 08/12/20 - 09/11/20 [facility]/[address] [address]- Allergies, Adverse Reactions, Alerts Substance Reaction Severity [...] 16:33:00 EST, Aerosol, Route to Pharmacy Electronically, [id number], [id number], 166, cm, 06/12/20 14:55:00 EST, Hei... Start Date: 06/12/20 Stop Date: 01/08/21 Status: Ordered Augmentin 500 mg-125 mg oral tablet 1 tablet, By Mouth, Every 12 hours, for 10 days, # 20 tablet, 0 Refills, Acute 09/14/20 12:31:00 EDT, 09/04/20 12:31:00 EST, Tablet, [id number], Partial fill upon patient request if the prescription is for a schedule II opioid drug., 166, cm,... Start Date: 09/04/20 Stop Date: 09/14/20 Status: Ordered buPROPion 300 mg/24 hours (XL) oral tablet, extended release 1 tablet = 300 mg, By Mouth, Daily, do not crush or chew. stop 150 bid and start 300 xl daily in am, # 30 tablet, 5 Refills, Maintenance, 08/12/20 16:28:00 EST, ER Tablet, [id number], 166, cm, 06/12/20 14:55:00 EST, Height, 111, kg, 04/07/20... Start Date: 08/12/20 Status: Ordered clindamycin 300 mg oral capsule 1 capsule = 300 mg, By Mouth, Every 6 hours, for 10 days, # 40 capsule, 0 Refills, Acute 09/18/20 12:58:00 EDT, 09/08/20 12:58:00 EDT, Capsule, [id number], Partial fill upon patient request if the prescription is for a schedule II opioid drug.... Start Date: 09/08/20 Stop Date: 09/18/20 Status: Ordered epinephrine 0.3 mg injectable solution [...] EST, Height Start Date: 08/20/19 Status: Ordered hydrOXYzine hydrochloride 25 mg oral tablet 1 tablet = 25 mg, By Mouth, 3 times a day, PRN itching or anxiety. May cause drowsiness. Do not take before driving., # 30 tablet, 0 Refills, Acute 09/27/20 11:06:00 EDT, 08/27/20 11:05:00 EST, [facility]/pharmacy #[id number], Partial fill upon patient request i... Start Date: 08/27/20 Stop Date: 09/27/20 Status: Ordered mupirocin 2% topical ointment 1 application, Topically, 3 times a day, for 7 days, Apply to affected area, # 30 Gm, 1 Refills, Acute 09/17/20 15:34:00 EDT, 09/03/20 15:34:00 EST, Ointment, [facility]/pharmacy #[id number], Partial fill upon patient request if the prescription is for a schedule... Start Date: 09/03/20 Stop Date: 09/17/20 Status: Ordered Narcan 4 mg/0.1 mL nasal [...] 1 Refills, Maintenance, 06/12/20 16:32:00 EST, Powder, [facility]/pharmacy #[id number], 1 each Inhalation Every 12 hours, 166, cm, 06/12/20 14:55:00 EST, Height, 111, kg, 04/07/20 9:41:00 EDT, Dry Weight Start Date: 06/12/20 Status: Ordered sertraline 50 mg oral tablet 1 tablet = 50 mg, By Mouth, Daily, # 30 tablet, 3 Refills, Maintenance, 06/12/20 16:10:00 EST, Tablet, [facility]/pharmacy #[id number], Partial fill upon patient request if the prescription is for a schedule II opioid drug., 166, cm, 06/12/20 14:55:00 EST, Height,... Start Date: 06/12/20 Status: Ordered Singulair 10 mg oral tablet 10 mg, 1, tablet, By Mouth, Daily, # 30 tablet, Refills 3, Tot. Refills 3, Maintenance, 06/12/20 16:32:00 EST, Route to Pharmacy Electronically, [facility]/pharmacy #[id number], 166, cm, 06/12/20 14:55:00 EST, [...]
--- OUTSIDE RECORDS SUMMARY | 2023-01-04 00:05 | XMS_ITS | Continuity of Care Document ---
Author Name Unknown Organization [facility] Address [address] [place] [address]- Care Team Providers Care Seafood Specialist Name Role Phone Felicia KURTZ, Tammy Guadarrama Primary Care Physician [place] [facility] [place] 10/02/20 - 11/01/20 [facility]/[address] [address]- Allergies, Adverse Reactions, Alerts Substance Reaction Severity [...] 16:33:00 EST, Aerosol, Route to Pharmacy Electronically, [id number], [id number], 166, cm, 06/12/20 14:55:00 EST, [...] Refills, Maintenance, 10/26/20 23:22:00 EDT, [id number], 166, cm, 09/18/20 11:41:00 EDT, Height, 111, kg, 04/07/20 9:41:00 EDT, Dry Weight Start Date: 10/26/20 Status: Ordered Singulair 10 mg oral tablet 10 mg, 1, tablet, By Mouth, Daily, # 30 tablet, Refills 5, Tot. Refills 5, Maintenance, 10/09/20 11:45:00 EDT, Route to Pharmacy Electronically, [facility]/pharmacy #[id number], 166, cm, 09/18/20 11:41:00 EDT, [...]
--- OUTSIDE RECORDS SUMMARY | 2023-01-04 00:05 | XMS_ITS | Continuity of Care Document ---
Author Name Unknown Organization [facility] Address [address] [place] [address]- Care Team Providers Care Manager Organizational Name Role Phone Felicia KURTZ, Tammy Guadarrama Primary Care Physician [facility] [place] Date(s): 03/27/20 - 04/26/20 [facility]/[address] [address]- [facility] Allergies, Adverse Reactions, Alerts Substance Reaction Severity [...] 11:20:00 EST, Aerosol, Route to Pharmacy Electronically, [id number], [id number], 166, cm, 08/09/19 14:34:00 EST, Height Start Date: 08/13/19 Stop Date: 03/10/20 Status: Ordered buPROPion 300 mg/24 hours (XL) oral tablet, extended release 1 tablet = 300 mg, By Mouth, Daily, do not crush or chew. stop 150 bid and start 300 xl daily in am, # 30 tablet, 3 Refills, Maintenance, 04/09/20 15:07:00 EDT, ER Tablet, [facility]/pharmacy #[id number], 166, cm, 04/07/20 9:41:00 EDT, [...] 1 Refills, Maintenance, 03/27/20 10:48:00 EDT, Powder, [facility]/pharmacy #[id number], 1 each Inhalation Every 12 hours, 166, cm, 03/18/20 8:48:00 EDT, Height Start Date: 03/27/20 Status: Ordered sertraline 25 mg oral tablet 1 tablet = 25 mg, By Mouth, Daily, new medication, # 30 tablet, 2 Refills, Maintenance, 04/09/20 15:29:00 EDT, Tablet, [facility]/pharmacy #[id number], 166, cm, 04/07/20 9:41:00 EDT, Height, 111, kg, 04/07/20 9:41:00 EDT, Dry Weight Start Date: 04/09/20 Stop Date: 07/08/20 Status: Ordered Singulair 10 mg oral tablet 10 mg, 1, tablet, By Mouth, Daily, # 30 tablet, Refills 3, Tot. Refills 3, Maintenance, 01/09/20 16:32:00 EDT, Route to Pharmacy Electronically, [facility]/pharmacy #[id number], 166, cm, 12/26/19 7:38:00 EDT, [...]
--- OUTSIDE RECORDS SUMMARY | 2023-01-04 00:05 | XMS_ITS | Continuity of Care Document ---
Author Name Unknown Organization [facility] Address [address] [place] [address]- Care Team Providers Care Padder Name Role Phone Felicia KURTZ, Tammy Guadarrama Primary Care Physician [place] [facility] [place] 12/31/19 - 01/30/20 [facility]/[address] [address]- [facility] Allergies, Adverse Reactions, Alerts Substance Reaction [...] 11:20:00 EST, Aerosol, Route to Pharmacy Electronically, [id number], [facility]/pharmacy #[id number], 166, cm, 08/09/19 14:34:00 EST, Height Start Date: 08/13/19 Stop Date: 03/10/20 Status: Ordered epinephrine 0.3 mg injectable solution See Instructions, Intramuscular Once may repeat if necessary. auto injector, # 2 each, 0 Refills, Soft Stop, 08/22/19 18:49:00 EST, [facility]/pharmacy #[id number], 166, cm, 08/09/19 14:34:00 EST, Height Start Date: 08/22/19 Status: Ordered EpiPen 2-Kelvin 0.3 mg injectable kit = 0.3 mg, Intramuscular, Once, may repeat if necessary. auto injector., # 1 kit, 0 Refills, Soft Stop, 08/20/19 11:50:00 EST, [facility]/pharmacy #[id number], 166, cm, 08/09/19 14:34:00 EST, Height [...] 1 Refills, Maintenance, 01/09/20 16:31:00 EDT, Patch, [facility]/pharmacy #[id number], 1 patch Topically Daily,Instr:to increase the nicotine dose to 21mg, 166, cm, 12/26/19 7:38:00 EDT,... Start Date: 01/09/20 Status: Ordered salmeterol 50 mcg inhalation powder 1 each = 50 mcg, Inhalation, Every 12 hours, # 28 each, 1 Refills, Maintenance, 01/19/20 14:20:00 EDT, Powder, [facility]/pharmacy #[id number], 1 each Inhalation Every 12 hours, 166, cm, 12/26/19 7:38:00 EDT, Height Start Date: 01/19/20 Status: Ordered Singulair 10 mg oral tablet 10 mg, 1, tablet, By Mouth, Daily, # 30 tablet, Refills 3, Tot. Refills 3, Maintenance, 01/09/20 16:32:00 EDT, Route to Pharmacy Electronically, [facility]/pharmacy #[id number], 166, cm, 12/26/19 7:38:00 EDT, Height [...]
--- OUTSIDE RECORDS SUMMARY | 2023-01-04 00:05 | XMS_ITS | Continuity of Care Document ---
Author Name Unknown Organization [facility] Address [address] [place] [address]- Care Team Providers Care Slicer Machine Operator Name Role Phone Felicia KURTZ, Tammy Guadarrama Primary Care Physician [place] [facility] [place]s): 03/16/20 - 04/15/20 [facility]/[address] [address]- [facility] Allergies, Adverse Reactions, [...] 11:20:00 EST, Aerosol, Route to Pharmacy Electronically, [id number], [id number], 166, cm, 08/09/19 14:34:00 EST, Height Start Date: 08/13/19 Stop Date: 03/10/20 Status: Ordered buPROPion 300 mg/24 hours (XL) oral tablet, extended release 1 tablet = 300 mg, By Mouth, Daily, do not crush or chew. stop 150 bid and start 300 xl daily in am, # 30 tablet, 3 Refills, Maintenance, 04/09/20 15:07:00 EDT, ER Tablet, [facility]/pharmacy #[id number], 166, cm, 04/07/20 9:41:00 EDT, [...] 1 Refills, Maintenance, 03/27/20 10:48:00 EDT, Powder, [facility]/pharmacy #[id number], 1 each Inhalation Every 12 hours, 166, cm, 03/18/20 8:48:00 EDT, Height Start Date: 03/27/20 Status: Ordered sertraline 25 mg oral tablet 1 tablet = 25 mg, By Mouth, Daily, new medication, # 30 tablet, 2 Refills, Maintenance, 04/09/20 15:29:00 EDT, Tablet, [facility]/pharmacy #[id number], 166, cm, 04/07/20 9:41:00 EDT, Height, 111, kg, 04/07/20 9:41:00 EDT, Dry Weight Start Date: 04/09/20 Stop Date: 07/08/20 Status: Ordered Singulair 10 mg oral tablet 10 mg, 1, tablet, By Mouth, Daily, # 30 tablet, Refills 3, Tot. Refills 3, Maintenance, 01/09/20 16:32:00 EDT, Route to Pharmacy Electronically, [facility]/pharmacy #[id number], 166, cm, 12/26/19 7:38:00 EDT, [...]
[2023-01-04 00:27] VITALS: BP 111/72; PULSE 82; RESP 16; TEMP 37.2; O2SAT 94
--- NOTE | 2023-01-04 00:39 | PC.NURSE ---
patient was found out on the street pasted out unresponsive due to patient had sniff some cocaine and was passed out someone called 911 patient was given narcan and patietb was asked to changed in the hospital attire patient refused [id number] is calm and cooperative with staff patient will continue to be monitored for safety
--- NOTE | 2023-01-04 02:31 | PC.NURSE ---
patient was advised of leaving against medical advice patient was educated and patient verbalize she was full aware patient signed the paperwork and patient doctor was notified patient will be escorted out to the security to get her belongings
== END 2023-01-04 02:50 | disposition left against medical advice (07) ==
PROVIDERS: Emergency Provider Emergency Medicine
DX: T40.5X1A Poisoning by cocaine, accidental (unintentional), initial encounter (principal); R40.4 Transient alteration of awareness; Y92.410 Unspecified street and highway as the place of occurrence of the external cause
CPT/HCPCS: 99285

== ENCOUNTER 2023-02-03 23:17 | Inpatient (IN) | payer OTHER, SELFPAY ==
--- NOTE | 2023-02-03 | ECG_ITS ---
Test Reason : ABDOMINAL PAIN Blood Pressure : / mmHG Vent. Rate : 069 BPM Atrial Rate : 069 BPM P-R Int : 162 ms QRS Dur : 074 ms QT Int : 414 ms P-R-T Axes : 082 033 044 degrees QTc Int : 443 ms Normal sinus rhythm Normal ECG When compared with ECG of 12-JUL-2019 10:10, No significant change was found Referred By: Generic ED Physician Electronically Signed By:Salty Cardona
--- NOTE | ~2023-02-03 | CT_ITS ---
EXAMINATION: CT ABDOMEN AND PELVIS WITH CONTRAST CLINICAL INFORMATION: Abdominal pain. COMPARISON: None available. TECHNIQUE: Multidetector volumetric images were obtained from the superior aspect of the liver through the pubic symphysis following administration 85 mL of Omnipaque 350 intravenous contrast. Sagittal and coronal reformatted images were obtained on the technologist's workstation. Oral contrast: No This CT examination was performed using dose optimization techniques as appropriate, variously including the following: *Automated exposure control *Adjustment of mA and/or kV according to patient size (this includes techniques or standardized protocols for targeted exams where dose is matched to indication/reason for exam; i.e. extremities or head) *Use of iterative reconstruction technique DLP: 1136 mGy-cm FINDINGS: LUNG BASES: The visualized lung bases are unremarkable. LIVER, GALLBLADDER, AND BILIARY TREE: The liver is normal in size, shape, and attenuation. No focal hepatic lesion or biliary ductal dilatation is present. There is gallbladder wall thickening/pericholecystic fluid. PANCREAS: Unremarkable. SPLEEN: Unremarkable. ADRENAL GLANDS: Unremarkable. KIDNEYS AND URETERS: The kidneys are normal in size, shape, and attenuation. No hydronephrosis, hydroureter, or calculi seen. No perinephric stranding. BLADDER: Unremarkable. GASTROINTESTINAL TRACT: The small and large bowel are unremarkable. The appendix measures up to 8 mm. There is no periappendiceal infiltration ABDOMINAL WALL: No significant hernia is appreciated. LYMPH NODES: Normal. VASCULAR: Unremarkable. PELVIC VISCERA: Unremarkable. OSSEOUS STRUCTURES: There is mild to moderate diffuse thoracolumbar disc degenerative change most pronounced at L3-L4 and L4-L5. CT/CT abdomen pelvis w IV con IMPRESSION: Gallbladder wall thickening/pericholecystic fluid. No definitive gallstones are seen. Consider gallbladder disease/cholecystitis. Right upper quadrant ultrasound may offer additional information. Borderline enlarged appendix measuring up to 8 mm. No periappendiceal infiltration. Correlation and follow-up needed. Fleischner guidelines were followed.
--- NOTE | ~2023-02-03 | US_ITS ---
EXAMINATION: US ABDOMEN LIMITED CLINICAL INFORMATION: Right upper quadrant pain. COMPARISON: None available. TECHNIQUE: Real-time imaging of the right upper quadrant abdominal viscera. FINDINGS: PANCREAS: Normal. LIVER: Normal. The liver is normal in size. The liver contour is normal. Parenchymal echogenicity is normal. No focal hepatic lesion. There is no intrahepatic biliary duct dilatation seen. GALLBLADDER: The gallbladder is normal in size. There are multiple gallstones, largest measuring 1.7 x 1.2 x 1.4 cm which appears impacted in the neck of the gallbladder. Gallbladder wall is thickened and edematous measuring up to 1.4 cm. There is ring down artifact questionable for adenomyomatosis of the gallbladder wall. COMMON BILE DUCT: Normal in caliber measuring 0.4 cm in diameter. RIGHT KIDNEY: Normal. No hydronephrosis. No renal calculi or focal parenchymal lesions. The kidney measures 11 cm in maximum dimension. FREE FLUID: None. US/US abdomen limited IMPRESSION: Gallstones. Thickened edematous gallbladder wall. Findings are questionable for acute cholecystitis. There also be adenomyomatosis of the gallbladder wall. Findings will be communicated by the [place] work flow efficiency miner.
[2023-02-03 23:22] VITALS: BP 144/88; BP 154/105; PULSE 101; PULSE 104; RESP 21; O2SAT 97
[2023-02-03 23:28] VITALS: BP 154/104; PULSE 104; RESP 21; TEMP 36.8; O2SAT 97; BMI 35.1
[2023-02-04] VITALS (20 sets, daily range): BP systolic 103–193; BP diastolic 60–99; PULSE 41–82; RESP 14–21; TEMP 36.1–36.6; O2SAT 94–100; BMI 37.0; BMI 36.4
[2023-02-04 00:02] LABS: MANUAL DIFF FLAG NO
[2023-02-04 00:04] LABS: Basophils Absolute Auto 0.1 X10*3/uL (0.0-0.2); Basophils Percent Auto 0.7 % (0-2); Eosinophils Absolute Auto 0.2 X10*3/uL (0.0-0.4); Eosinophils Percent Auto 1.5 % (0-4); Hematocrit 42.6 % (37.0-47.0); Hemoglobin 13.8 g/dl (12.0-16.0); Imm Gran Abs Auto 0.04 X10*3/uL (0.00-0.03); Imm Gran Pct Auto 0.3 % (0.0-0.4); Lymphocytes Absolute Auto 4.6 X10*3/uL (1.2-4.9); Lymphocytes Percent Auto 38.3 % (20-40); Mean Corpuscular HGB Conc 32.4 g/dl (31.0-35.0); Mean Corpuscular Hemoglobin 31.1 pg (27.0-33.0); Mean Corpuscular Volume 95.9 fL (80.0-98.0); Mean Platelet Volume 10.5 fL (9.4-12.3); Monocytes Absolute Auto 0.7 X10*3/uL (0.1-1.2); Monocytes Percent Auto 5.8 % (2-11); Neutrophils Absolute Auto 6.4 x10*3/uL (2.0-8.3); Neutrophils Percent Auto 53.4 % (45-73); Platelet Count 315 X10*3/uL (160-400); Red Blood Count 4.44 X10*6/uL (4.20-5.50); Red Cell Distribution Width 14.9 % (11.0-16.0)
--- OUTSIDE RECORDS SUMMARY | 2023-02-04 00:06 | XMS_ITS | Continuity of Care Document ---
Author Name Unknown Organization [facility] Address [address] [place] [address]- Care Team Providers Care Director Of Annual Giving Name Role Phone Xenia KURTZ, Awa Akbar Primary Care Physici an Encounter [facility] Date(s): 12/12/22 - 01/11/23 [facility] [address] [place] [address]- Attending Physician: Admtr, Cathleen Admitting Physician: AdmtrCathleen Referring Physician: Admtr, Ar8 [...] 16:33:00 EST, Aerosol, Route to Pharmacy Electronically, [id number], [facility]/pharmacy #[id number], 166, cm, 06/12/20 14:55:00 EST, Hei... Start Date: 06/12/20 Stop Date: 01/08/21 Status: Ordered buPROPion 300 mg/24 hours (XL) oral tablet, extended release 1 tablet = 300 mg, By Mouth, Daily, do not crush or chew, # 30 tablet, 0 Refills, Maintenance, 04/21/21 12:25:00 EDT, ER Tablet, [facility]/pharmacy #[id number], 166, cm, 10/27/20 9:55:00 EDT, Height, 111, kg, 04/07/20 9:41:00 EDT, Dry Weight Start Date: 04/21/21 Status: Ordered cloNIDine 0.2 mg oral tablet 0.2 mg, 1, tablet, By Mouth, 2 times a day, NEED TO CONTACT CLINIC AND GET LABS DONE PRIOR TO NEXT REFILL, # 14 tablet, Refills 0, Tot. Refills 0, Maintenance, 05/21/21 12:13:00 EST, Route to Pharmacy Electronically, [facility]/pharmacy #[id number], Partial fill u... Start Date: 05/21/21 Stop Date: 05/28/21 Status: Ordered epinephrine 0.3 mg injectable solution See Instructions, Intramuscular Once may repeat if necessary. auto injector, # 2 each, 0 Refills, Soft Stop, 08/22/19 18:49:00 EST, [facility]/pharmacy #[id number], 166, cm, 08/09/19 14:34:00 EST, Height Start Date: 08/22/19 Status: Ordered EpiPen 2-Kelvin 0.3 mg injectable kit = 0.3 mg, Intramuscular, Once, may repeat if necessary. auto injector., # 1 kit, 0 Refills, Soft Stop, 08/20/19 11:50:00 EST, [facility]/pharmacy #[id number], 166, cm, 08/09/19 14:34:00 EST, Height Start Date: 08/20/19 Status: Ordered Narcan 4 mg/0.1 mL nasal spray = 4 mg, Nares, Both, Once, # 2 each, 3 Refills, Soft Stop, 03/27/20 11:07:00 EDT, [facility]/pharmacy #[id number], 166, cm, 03/18/20 8:48:00 [...] 1 Refills, Maintenance, 06/12/20 16:32:00 EST, Powder, [facility]/pharmacy #[id number], 1 each Inhalation Every 12 hours, 166, cm, 06/12/20 14:55:00 EST, Height, 111, kg, 04/07/20 9:41:00 EDT, Dry Weight Start Date: 06/12/20 Status: Ordered sertraline 100 mg oral tablet 1.5 tablet = 150 mg, By Mouth, Daily, # 45 tablet, 11 Refills, Maintenance, 04/22/21 14:20:00 EDT, Tablet, [facility]/pharmacy #[id number], Partial fill upon patient request if the prescription is for a schedule II opioid drug., 166, cm, 04/22/21 13:45:00 EDT, Hei... Start Date: 04/22/21 Status: Ordered Singulair 10 mg oral tablet 10 mg, 1, tablet, By Mouth, Daily, # 30 tablet, Refills 5, Tot. Refills 5, Maintenance, 10/09/20 11:45:00 EDT, Route to Pharmacy Electronically, [facility]/pharmacy #[id number], 166, cm, 09/18/20 11:41:00 [...] 1 Confirmed 10/06/22 Active 1work-up done at [facility], no menses x 3 yrs Social History Social History Type Response Smoking Status 10 or more cigarette s (1/2 pack or more)/day in last 30 days; Tobacco user in household: Yes; Other: Reports increased use due to stress. Looking to cut back, hopeful with Wellbutrin; entered on: 09/03/20 Sex Patient Care team information Care Team Personnel Name: Xenia KURTZ, Awa Akbar Position: [facility] PCO Associate Professional Member Role: PCP Address: Address: [address] [place] [id number]- Care Team Related Persons Name: VINNIE PATEL Address: [address] [place] [address] Name: RADHA NOGUERA
--- OUTSIDE RECORDS SUMMARY | 2023-02-04 00:07 | XMS_ITS | Continuity of Care Document ---
Author Name Unknown Organization [facility] Address [address] [place] [address]- Care Team Providers Care Communications Consultant Name Role Phone Xenia KURTZ, Awa Akbar Primary Care Physici an [place] [facility] [place] - 01/20/23 [facility]/[place] [address]- Attending Physician: AdmCathleen graves Admitting Physician: AdmtrCathleen Referring Physician: Admtr, Ar8 [...] 16:33:00 EST, Aerosol, Route to Pharmacy Electronically, [id number], [facility]/pharmacy #[id number], 166, cm, 06/12/20 14:55:00 EST, Hei... Start Date: 06/12/20 Stop Date: 01/08/21 Status: Ordered buPROPion 300 mg/24 hours (XL) oral tablet, extended release 1 tablet = 300 mg, By Mouth, Daily, do not crush or chew, # 30 tablet, 0 Refills, Maintenance, 04/21/21 12:25:00 EDT, ER Tablet, [facility]/pharmacy #[id number], 166, cm, 10/27/20 9:55:00 EDT, Height, 111, kg, 04/07/20 9:41:00 EDT, Dry Weight Start Date: 04/21/21 Status: Ordered cloNIDine 0.2 mg oral tablet 0.2 mg, 1, tablet, By Mouth, 2 times a day, NEED TO CONTACT CLINIC AND GET LABS DONE PRIOR TO NEXT REFILL, # 14 tablet, Refills 0, Tot. Refills 0, Maintenance, 05/21/21 12:13:00 EST, Route to Pharmacy Electronically, [facility]/pharmacy #[id number], Partial fill u... Start Date: 05/21/21 Stop Date: 05/28/21 Status: Ordered epinephrine 0.3 mg injectable solution See Instructions, Intramuscular Once may repeat if necessary. auto injector, # 2 each, 0 Refills, Soft Stop, 08/22/19 18:49:00 EST, [facility]/pharmacy #[id number], 166, cm, 08/09/19 14:34:00 EST, Height Start Date: 08/22/19 Status: Ordered EpiPen 2-Kelvin 0.3 mg injectable kit = 0.3 mg, Intramuscular, Once, may repeat if necessary. auto injector., # 1 kit, 0 Refills, Soft Stop, 08/20/19 11:50:00 EST, [facility]/pharmacy #[id number], 166, cm, 08/09/19 14:34:00 EST, Height Start Date: 08/20/19 Status: Ordered Narcan 4 mg/0.1 mL nasal spray = 4 mg, Nares, Both, Once, # 2 each, 3 Refills, Soft Stop, 03/27/20 11:07:00 EDT, [facility]/pharmacy #[id number], 166, cm, 03/18/20 8:48:00 EDT, [...] 1 Refills, Maintenance, 06/12/20 16:32:00 EST, Powder, [facility]/pharmacy #[id number], 1 each Inhalation Every 12 hours, 166, cm, 06/12/20 14:55:00 EST, Height, 111, kg, 04/07/20 9:41:00 EDT, Dry Weight Start Date: 06/12/20 Status: Ordered sertraline 100 mg oral tablet 1.5 tablet = 150 mg, By Mouth, Daily, # 45 tablet, 11 Refills, Maintenance, 04/22/21 14:20:00 EDT, Tablet, [facility]/pharmacy #[id number], Partial fill upon patient request if the prescription is for a schedule II opioid drug., 166, cm, 04/22/21 13:45:00 EDT, Hei... Start Date: 04/22/21 Status: Ordered Singulair 10 mg oral tablet 10 mg, 1, tablet, By Mouth, Daily, # 30 tablet, Refills 5, Tot. Refills 5, Maintenance, 10/09/20 11:45:00 EDT, Route to Pharmacy Electronically, [facility]/pharmacy #[id number], 166, cm, 09/18/20 11:41:00 EDT, [...] 1 Confirmed 10/06/22 Active 1work-up done at [facility], no menses x 3 yrs Social History Social History Type Response Smoking Status 10 or more cigarette s (1/2 pack or more)/day in last 30 days; Tobacco user in household: Yes; Other: Reports increased use due to stress. Looking to cut back, hopeful with Wellbutrin; entered on: 09/03/20 Sex Laboratory * Event Display: Non BH Lab Results Authored Date: * Event Display: Non BH Lab Results Authored Date: * Event Display: Non BH Lab Results Authored Date: Patient Care team information Care Team Personnel Name: Xenia KURTZ, Awa Akbar Position: [facility] PCO Associate Professional Member Role: PCP Address: Address: [address] [place] [id number]- Care Team Related Persons Name: VINNIE PATEL Address: home [address] [place] [address] Name: RADHA NOGUERA
--- OUTSIDE RECORDS SUMMARY | 2023-02-04 00:07 | XMS_ITS | Continuity of Care Document ---
Author Name Unknown Organization [facility] Address [address] [place] [address]- Care Team Providers Care Sales Warehouse Driver Name Role Phone Felicia KURTZ, Tammy Guadarrama Primary Care Physician [phone] [place] [facility] [place] - 03/05/20 [facility]/[address] [address]- [facility] Allergies, Adverse Reactions, Alerts Substance [...] 0 Refills, Maintenance, 01/09/20 16:40:00 EDT, Solution, [facility]/pharmacy #[id number], 166, cm, 12/26/19 7:38:00 EDT, Height Start Date: 01/09/20 Status: Ordered albuterol CFC free 90 mcg/inh inhalation aerosol 2, puffs, Inhalation, 4 times a day, PRN, # 1 each, Refills 6, Tot. Refills 6, Maintenance, 08/13/19 11:20:00 EST, Aerosol, Route to Pharmacy Electronically, [id number], [facility]/pharmacy #[id number], 166, cm, 08/09/19 14:34:00 EST, Height Start Date: 08/13/19 Stop Date: 03/10/20 Status: Ordered epinephrine 0.3 mg injectable solution See Instructions, Intramuscular Once may repeat if necessary. auto injector, # 2 each, 0 Refills, Soft Stop, 08/22/19 18:49:00 EST, [facility]/pharmacy #[id number], 166, cm, 08/09/19 14:34:00 EST, Height Start Date: 08/22/19 Status: Ordered EpiPen 2-Kelvin 0.3 mg injectable kit = 0.3 mg, Intramuscular, Once, may repeat if necessary. auto injector., # 1 kit, 0 Refills, Soft Stop, 08/20/19 11:50:00 EST, [facility]/pharmacy #[id number], 166, cm, 08/09/19 14:34:00 EST, [...] 1 Refills, Maintenance, 01/09/20 16:31:00 EDT, Patch, [facility]/pharmacy #[id number], 1 patch Topically Daily,Instr:to increase the nicotine dose to 21mg, 166, cm, 12/26/19 7:38:00 EDT,... Start Date: 01/09/20 Status: Ordered salmeterol 50 mcg inhalation powder 1 each = 50 mcg, Inhalation, Every 12 hours, # 28 each, 1 Refills, Maintenance, 01/19/20 14:20:00 EDT, Powder, [facility]/pharmacy #[id number], 1 each Inhalation Every 12 hours, 166, cm, 12/26/19 7:38:00 EDT, Height Start Date: 01/19/20 Status: Ordered Singulair 10 mg oral tablet 10 mg, 1, tablet, By Mouth, Daily, # 30 tablet, Refills 3, Tot. Refills 3, Maintenance, 01/09/20 16:32:00 EDT, Route to Pharmacy Electronically, [facility]/pharmacy #[id number], 166, cm, 12/26/19 7:38:00 EDT, [...]
--- OUTSIDE RECORDS SUMMARY | 2023-02-04 00:07 | XMS_ITS | Continuity of Care Document ---
Author Name Unknown Organization [facility] Address [address] [place] [address]- Care Team Providers Care Tube Repairer Name Role Phone Felicia KURTZ, Tammy Guadarrama Primary Care Physician Encounter [facility] [place] Date(s): 10/26/20 - 11/25/20 [facility]/[address] [address]- Allergies, Adverse Reactions, Alerts Substance Reaction Severity [...] 16:33:00 EST, Aerosol, Route to Pharmacy Electronically, [id number], [id number], 166, cm, 06/12/20 14:55:00 EST, [...] Refills, Maintenance, 10/26/20 23:22:00 EDT, [id number], 166, cm, 09/18/20 11:41:00 EDT, Height, 111, kg, 04/07/20 9:41:00 EDT, Dry Weight Start Date: 10/26/20 Status: Ordered Singulair 10 mg oral tablet 10 mg, 1, tablet, By Mouth, Daily, # 30 tablet, Refills 5, Tot. Refills 5, Maintenance, 10/09/20 11:45:00 EDT, Route to Pharmacy Electronically, [facility]/pharmacy #[id number], 166, cm, 09/18/20 11:41:00 EDT, Height, [...]
--- OUTSIDE RECORDS SUMMARY | 2023-02-04 00:07 | XMS_ITS | Continuity of Care Document ---
Author Name Unknown Organization [facility] Address [address] [place] [address]- Care Team Providers Care Billing Auditor Name Role Phone Xenia KURTZ, Awa Akbar Primary Care Physici an Encounter [facility] [place] Date(s): 11/11/22 - 01/11/23 [facility] [address] [place] [address]- Attending Physician: Charleen Puga MD Admitting Physician: Charleen Puga MD Referring Physician: Awa Michaels NP Allergies, Adverse Reactions, Alerts Substance Reaction [...] 16:33:00 EST, Aerosol, Route to Pharmacy Electronically, [id number], [facility]/pharmacy #[id number], 166, cm, 06/12/20 14:55:00 EST, Hei... Start Date: 06/12/20 Stop Date: 01/08/21 Status: Ordered buPROPion 300 mg/24 hours (XL) oral tablet, extended release 1 tablet = 300 mg, By Mouth, Daily, do not crush or chew, # 30 tablet, 0 Refills, Maintenance, 04/21/21 12:25:00 EDT, ER Tablet, [facility]/pharmacy #[id number], 166, cm, 10/27/20 [...] 05/21/21 12:13:00 EST, Route to Pharmacy Electronically, [facility]/pharmacy #[id number], Partial fill u... Start Date: 05/21/21 Stop Date: 05/28/21 Status: Ordered epinephrine 0.3 mg injectable solution See Instructions, Intramuscular Once may repeat if necessary. auto injector, # 2 each, 0 Refills, Soft Stop, 08/22/19 18:49:00 EST, [facility]/pharmacy #[id number], 166, cm, 08/09/19 14:34:00 EST, Height Start Date: 08/22/19 Status: Ordered EpiPen 2-Kelvin 0.3 mg injectable kit = 0.3 mg, Intramuscular, Once, may repeat if necessary. auto injector., # 1 kit, 0 Refills, Soft Stop, 08/20/19 11:50:00 EST, [facility]/pharmacy #[id number], 166, cm, 08/09/19 14:34:00 EST, Height Start Date: 08/20/19 Status: Ordered Narcan 4 mg/0.1 mL nasal spray = 4 mg, Nares, Both, Once, # 2 each, 3 Refills, Soft Stop, 03/27/20 11:07:00 EDT, [facility]/pharmacy #[id number], 166, cm, 03/18/20 [...] 1 Refills, Maintenance, 06/12/20 16:32:00 EST, Powder, [facility]/pharmacy #[id number], 1 each Inhalation Every 12 hours, 166, cm, 06/12/20 14:55:00 EST, Height, 111, kg, 04/07/20 9:41:00 EDT, Dry Weight Start Date: 06/12/20 Status: Ordered sertraline 100 mg oral tablet 1.5 tablet = 150 mg, By Mouth, Daily, # 45 tablet, 11 Refills, Maintenance, 04/22/21 14:20:00 EDT, Tablet, [facility]/pharmacy #[id number], Partial fill upon patient request if the prescription is for a schedule II opioid drug., 166, cm, 04/22/21 13:45:00 EDT, Hei... Start Date: 04/22/21 Status: Ordered Singulair 10 mg oral tablet 10 mg, 1, tablet, By Mouth, Daily, # 30 tablet, Refills 5, Tot. Refills 5, Maintenance, 10/09/20 11:45:00 EDT, Route to Pharmacy Electronically, [facility]/pharmacy #[id number], 166, cm, 09/18/20 [...] 1 Confirmed 10/06/22 Active 1work-up done at [facility], no menses x 3 yrs Social History Social History Type Response Smoking Status 10 or more cigarette s (1/2 pack or more)/day in last 30 days; Tobacco user in household: Yes; Other: Reports increased use due to stress. Looking to cut back, hopeful with Wellbutrin; entered on: 09/03/20 Sex Patient Care team information Care Team Personnel Name: Xenia KURTZ, Awa Akbar Position: [facility] PCO Associate Professional Member Role: PCP Address: Address: [address] [place] [address]- Care Team Related Persons Name: VINNIE PATEL Address: [address] [place] [address] Name: RADHA NOGUERA
--- OUTSIDE RECORDS SUMMARY | 2023-02-04 00:07 | XMS_ITS | Continuity of Care Document ---
Author Name Unknown Organization [facility] Address Unknown Care Team Providers Care Supervisor Wet End Name Role Phone Xenia KURTZ, Awa Akbar Primary Care Physici an Encounter [facility] [place] [facility] [id number] Date(s): 05/05/21 - 06/04/21 [facility] Attending Physician: AdmCathleen graves Admitting Physician: Admtr, [id number] Referring Physician: Admtr, Ar8 Allergies, Adverse Reactions, [...] 16:33:00 EST, Aerosol, Route to Pharmacy Electronically, [id number], [facility]/pharm[facility] #[id number], 166, cm, 06/12/20 14:55:00 EST, Hei... Start Date: 06/12/20 Stop Date: 01/08/21 Status: Ordered buPROPion 300 mg/24 hours (XL) oral tablet, extended release 1 tablet = 300 mg, By Mouth, Daily, do not crush or chew, # 30 tablet, 0 Refills, Maintenance, 04/21/21 12:25:00 EDT, ER Tablet, [facility]/pharmacy #[id number], 166, cm, 10/27/20 9:55:00 EDT, Height, 111, kg, 04/07/20 9:41:00 EDT, Dry Weight Start Date: 04/21/21 Status: Ordered cloNIDine 0.2 mg oral tablet 0.2 mg, 1, tablet, By Mouth, 2 times a day, NEED TO CONTACT CLINIC AND GET LABS DONE PRIOR TO NEXT REFILL, # 14 tablet, Refills 0, Tot. Refills 0, Maintenance, 05/21/21 12:13:00 EST, Route to Pharmacy Electronically, [facility]/pharmacy #[id number], Partial fill u... Start Date: 05/21/21 Stop Date: 05/28/21 Status: Ordered epinephrine 0.3 mg injectable solution See Instructions, Intramuscular Once may repeat if necessary. auto injector, # 2 each, 0 Refills, Soft Stop, 08/22/19 18:49:00 EST, [facility]/pharmacy #[id number], 166, cm, 08/09/19 14:34:00 EST, Height Start Date: 08/22/19 Status: Ordered EpiPen 2-Kelvin 0.3 mg injectable kit = 0.3 mg, Intramuscular, Once, may repeat if necessary. auto injector., # 1 kit, 0 Refills, Soft Stop, 08/20/19 11:50:00 EST, [facility]/pharmacy #[id number], 166, cm, 08/09/19 14:34:00 EST, Height Start Date: 08/20/19 Status: Ordered Narcan 4 mg/0.1 mL nasal spray = 4 mg, Nares, Both, Once, # 2 each, 3 Refills, Soft Stop, 03/27/20 11:07:00 EDT, [facility]/pharmacy #[id number], 166, cm, 03/18/20 8:48:00 EDT, [...] 1 Refills, Maintenance, 06/12/20 16:32:00 EST, Powder, [facility]/pharmacy #[id number], 1 each Inhalation Every 12 hours, 166, cm, 06/12/20 14:55:00 EST, Height, 111, kg, 04/07/20 9:41:00 EDT, Dry Weight Start Date: 06/12/20 Status: Ordered sertraline 100 mg oral tablet 1.5 tablet = 150 mg, By Mouth, Daily, # 45 tablet, 11 Refills, Maintenance, 04/22/21 14:20:00 EDT, Tablet, [facility]/pharmacy #[id number], Partial fill upon patient request if the prescription is for a schedule II opioid drug., 166, cm, 04/22/21 13:45:00 EDT, Hei... Start Date: 04/22/21 Status: Ordered Singulair 10 mg oral tablet 10 mg, 1, tablet, By Mouth, Daily, # 30 tablet, Refills 5, Tot. Refills 5, Maintenance, 10/09/20 11:45:00 EDT, Route to Pharmacy Electronically, [facility]/pharm[facility] #[id number], 166, cm, 09/18/20 11:41:00 EDT, [...]
--- OUTSIDE RECORDS SUMMARY | 2023-02-04 00:08 | XMS_ITS | Continuity of Care Document ---
Author Name Unknown Organization [facility] Address [address] [place] [address]- Care Team Providers Care Device Processing Engineer Name Role Phone Xenia KURTZ, Awa Akbar Primary Care Physici an Encounter [facility] [place] Date(s): 10/28/22 - 01/20/23 [facility]/[place] [address]- Attending Physician: Xenia KURTZ, Awa Akbar Admitting Physician: Xenia KURTZ, Awa Akbar Referring Physician: Xenia KURTZ, Awa Akbar Allergies, Adverse [...] 16:33:00 EST, Aerosol, Route to Pharmacy Electronically, [id number], [facility]/pharmacy #[id number], 166, cm, 06/12/20 14:55:00 EST, Hei... Start Date: 06/12/20 Stop Date: 01/08/21 Status: Ordered buPROPion 300 mg/24 hours (XL) oral tablet, extended release 1 tablet = 300 mg, By Mouth, Daily, do not crush or chew, # 30 tablet, 0 Refills, Maintenance, 04/21/21 12:25:00 EDT, ER Tablet, [facility]/pharmacy #[id number], 166, cm, 10/27/20 9:55:00 [...] 05/21/21 12:13:00 EST, Route to Pharmacy Electronically, [facility]/pharmacy #[id number], Partial fill u... Start Date: 05/21/21 Stop Date: 05/28/21 Status: Ordered epinephrine 0.3 mg injectable solution See Instructions, Intramuscular Once may repeat if necessary. auto injector, # 2 each, 0 Refills, Soft Stop, 08/22/19 18:49:00 EST, [facility]/pharmacy #[id number], 166, cm, 08/09/19 14:34:00 EST, Height Start Date: 08/22/19 Status: Ordered EpiPen 2-Kelvin 0.3 mg injectable kit = 0.3 mg, Intramuscular, Once, may repeat if necessary. auto injector., # 1 kit, 0 Refills, Soft Stop, 08/20/19 11:50:00 EST, [facility]/pharmacy #[id number], 166, cm, 08/09/19 14:34:00 EST, Height Start Date: 08/20/19 Status: Ordered Narcan 4 mg/0.1 mL nasal spray = 4 mg, Nares, Both, Once, # 2 each, 3 Refills, Soft Stop, 03/27/20 11:07:00 EDT, [facility]/pharmacy #[id number], 166, cm, 03/18/20 8:48:00 [...] 1 Refills, Maintenance, 06/12/20 16:32:00 EST, Powder, [facility]/pharmacy #[id number], 1 each Inhalation Every 12 hours, 166, cm, 06/12/20 14:55:00 EST, Height, 111, kg, 04/07/20 9:41:00 EDT, Dry Weight Start Date: 06/12/20 Status: Ordered sertraline 100 mg oral tablet 1.5 tablet = 150 mg, By Mouth, Daily, # 45 tablet, 11 Refills, Maintenance, 04/22/21 14:20:00 EDT, Tablet, [facility]/pharmacy #[id number], Partial fill upon patient request if the prescription is for a schedule II opioid drug., 166, cm, 04/22/21 13:45:00 EDT, Hei... Start Date: 04/22/21 Status: Ordered Singulair 10 mg oral tablet 10 mg, 1, tablet, By Mouth, Daily, # 30 tablet, Refills 5, Tot. Refills 5, Maintenance, 10/09/20 11:45:00 EDT, Route to Pharmacy Electronically, [facility]/pharmacy #[id number], 166, cm, 09/18/20 11:41:00 [...] 1 Confirmed 10/06/22 Active 1work-up done at [facility], no menses x 3 yrs Social History Social History Type Response Smoking Status 10 or more cigarette s (1/2 pack or more)/day in last 30 days; Tobacco user in household: Yes; Other: Reports increased use due to stress. Looking to cut back, hopeful with Wellbutrin; entered on: 09/03/20 Sex Patient Care team information Care Team Personnel Name: Xenia KURTZ, Awa Akbar Position: [facility] PCO Associate Professional Member Role: PCP Address: Address: [address] [place] [id number]- Care Team Related Persons Name: VINNIE PATEL Address: home [address] [place] [address] Name: RADHA NOGUERA
[2023-02-04 00:12] LABS: Lactic Acid 1.2 mmol/L (0.5-2.0)
--- NOTE | 2023-02-04 00:15 | PC.NURSE ---
Patient presents with abdominal pain, know gallstones has a planned cholecystectomy on Monday. Patient states that earlier today she had a Big Mac because she knew she needed to eat something. Patient was unable to keep the food down. Of note; patient admits to using cocaine on her birthday a few days ago, both sniffed and injected.
[2023-02-04 00:18] LABS: Alanine Aminotransferase 11 U/L (0-31); Albumin Level 3.7 g/dL (3.5-5.0); Alkaline Phosphatase 92 U/L (39-117); Anion Gap 14 (12-20); Aspartate Amino Transferase 28 U/L (5-31); Bilirubin Direct < 0.2 mg/dL (0.0-0.5); Bilirubin Total 0.2 mg/dL (0.0-1.0); Blood Urea Nitrogen 12 mg/dL (9-16); Carbon Dioxide 23 mmol/L (22-29); Chloride 109 mmol/L (96-108); Creatinine Clr Calc Pharmacy 82.9; Estimated Glomerular Filt Rate > 60; Glucose Random 105 mg/dL (60-115); Lipase 21 U/L (8-78); Potassium 3.5 mmol/L (3.3-5.1); Sodium 142 mmol/L (135-145); Total Protein 8.3 g/dL (6.5-8.0)
--- NOTE | 2023-02-04 00:22 | ED.ABDPAIN ---
HPI - Abdominal Pain General Chief Complaint: Abdominal Pain Stated Complaint: Rt Side Abd.Pain Time Seen by Provider: 02/03/23 23:40 Source: patient and old records reviewed Mode of arrival: ambulatory Limitations: no limitations History of Present Illness HPI narrative: 43 yo female with substance abuse states she used cocaine 3 days ago, gallstones but declined surgery a year ago in [place] as she didn't like the doctor comes in with n/v and RUQ pain MD elicited complaint: abdominal pain Pertinent past history: other (gallstones) Onset (ago): day(s) (3) Pain Consistency: intermittent Location: RUQ Severity: moderate Quality: stabbing Radiation: none Migration to: no migration Exacerbating factors: eating Relieving factors: nothing Context: history of similar episodes Associated symptoms: nausea and vomiting Related Data Previous Rx's Medication Instructions Recorded cephalexin 500 mg capsule 500 mg PO TID 7 days #21 caps 04/17/21 doxycycline hyclate 100 mg capsule 100 mg PO BID 7 days #14 caps 04/17/21 ondansetron 4 mg disintegrating 4 mg PO Q8H PRN nausea and 04/17/21 tablet vomiting #20 tabs Allergies Allergy/AdvReac Type Severity Reaction Status Date / Time fluticasone [From FLONASE] Allergy Severe NOSEBLEEDS/ Verified 01/04/23 00:43 CLAMMY ibuprofen [Ibuprofen] Allergy Intermediate HIVES Verified 01/04/23 00:43 latex [Latex] Allergy Mild RASH Verified 01/04/23 00:43 Iodinated Contrast Media Allergy Unknown ITCHY ( Verified 01/04/23 00:43 [IV Dye, Iodine Containing] CONTRAST FOR CT ) sulfamethoxazole AdvReac Unknown NAUSEA & Verified 01/04/23 00:43 [From BACTRIM] VOMITING trimethoprim [From BACTRIM] AdvReac Unknown NAUSEA & Verified 01/04/23 00:43 VOMITING From Advair Diskus Allergy Intermediate SHORTNESS Uncoded 01/04/23 00:43 OF BREATH Advair HFA Allergy Unknown chest pain Uncoded 01/04/23 00:43 Flonase Allergy Unknown headaches, Uncoded 01/04/23 00:43 nose bleeds Ibuprofen Allergy Unknown upset Uncoded 01/04/23 00:43 stomach Latex Gloves Allergy Unknown rash Uncoded 01/04/23 00:43 Sulfa Allergy Unknown hives Uncoded 01/04/23 00:43 Contrast Dye AdvReac Unknown hives Uncoded 01/04/23 00:43 Review of Systems Review of Systems Constitutional : No Weight loss, No Fever, No Chills ENT/Mouth : No sore throat, No Rhinorrhea Eyes: No Swelling, No Redness Cardiovascular : No Chest Pain, No SOB, NoEdema Respiratory : No Cough, No Sputum, No Wheezing Gastrointestinal : Positive Nausea, Positive Vomiting, no Diarrhea, positive abdominal Pain, No Hematochezia, No Melena Genitourinary : No Dysuria, No Urinary Frequency, No Hematuria, No Urgency Musculoskeletal : No joint pain, No Myalgias, No Joint Swelling Skin : No Skin Lesions, No rash Neuro : No Weakness, No Numbness, No Dizziness, No Headache Psych : No Anxiety/Panic, No Depression All other systems reviewed and are negative. [facility] Past Medical History Attestation statement: The following information was validated with the patient. Medical History (Updated 02/04/23 @ 01:34 by Rebecca Ford DO) Active substance abuse Gallstones Social History Social History Alcohol intake: current Alcohol intake frequency: holidays/special occasions only Alcohol type: hard liquor Smoked in Last 30 Days: Yes Use of substances other than those prescribed or required for medical reasons: Yes Substance Use Type: Crack/Cocaine Advance Directives: No Advance Directives Information Provided: Yes Physical Exam ED Vital Signs: Vital Signs - 24 hr 02/03/23 23:28 02/03/23 23:22 Temperature 98.2 F Pulse Rate 104 H 104 H Respiratory Rate 21 H 21 H Blood Pressure 154/104 H 154/105 H Pulse Oximetry 97 97 Oxygen Delivery Method Room Air Room Air BMI result Body Mass Index 35.1 Appearance: Alert. Oriented X3. No acute distress. seems under the influence, dosing off at times Eyes: Pupils equal, round and reactive to light. ENT: Pharynx normal. Neck: Normal inspection. Neck supple. CVS: Normal heart rate and rhythm. Pulses normal. Respiratory: No respiratory distress. Breath sounds normal. Abdomen: Soft and moderate RUQ ttp Skin: Skin warm and dry. Normal skin color. Normal skin turgor. Extremities: No lower extremity edema. No calf ttp Neuro: Oriented X 3. No motor deficit. No sensory deficit. Procedures Procedure Narrative Procedure Narrative: bedside US + gallstones but overlying bowel gas obscured some of the view Medical Decision Making Medical Decision Making [facility] Narrative: 43 yo female with hx of gallstones and substance abuse last used cocaine 3 days ago here with c/o n/v and RUQ pain at this time will need basic labs and bedside US shows gallstones but she also has lots of bowel gas obscuring views. I have ordered CT scan at this time to assess pancreas and gallstones. IVF and medications ordered. Differential Diagnosis Differential Diagnoses: The differential diagnosis associated with the presentation includes pancreatitis, gallstones, biliary colic, gastritis Lab Data [facility] Lab Attestation statement: I reviewed the patient's lab results. 02/03/23 23:57 02/03/23 23:57 Labs: Lab Results 02/03/23 02/03/23 02/03/23 Range/Units 23:56 23:57 23:57 WBC 12.0 H (4.8-10.8) X10*3/uL RBC 4.44 (4.20-5.50) X10*6/uL Hgb 13.8 (12.0-16.0) g/dl Hct 42.6 (37.0-47.0) % MCV 95.9 (80.0-98.0) fL MCH 31.1 (27.0-33.0) pg MCHC 32.4 (31.0-35.0) g/dl RDW 14.9 (11.0-16.0) % Plt Count 315 (160-400) X10*3/uL MPV 10.5 (9.4-12.3) fL Immature Gran % (Auto) 0.3 (0.0-0.4) % Neut % (Auto) 53.4 (45-73) % Lymph % (Auto) 38.3 (20-40) % [place] % (Auto) 5.8 (2-11) % Eos % (Auto) 1.5 (0-4) % Baso % (Auto) 0.7 (0-2) % Lymph # (Auto) 4.6 (1.2-4.9) X10*3/uL [place] # (Auto) 0.7 (0.1-1.2) X10*3/uL Eos # (Auto) 0.2 (0.0-0.4) X10*3/uL Baso # (Auto) 0.1 (0.0-0.2) X10*3/uL Abs Immat Gran (auto) 0.04 H (0.00-0.03) X10*3/uL Absolute Neuts (auto) 6.4 (2.0-8.3) x10*3/uL Absolute Nucleated RBC 0.000 (0.0-0.012) X10*3/uL Nucleated RBC % (auto) 0.0 (0.0-0.2) /100WBC Sodium 142 (135-145) mmol/L Potassium 3.5 (3.3-5.1) mmol/L Chloride 109 H (96-108) mmol/L Carbon Dioxide 23 (22-29) mmol/L Anion Gap 14 (12-20) BUN 12 (9-16) mg/dL Creatinine 0.95 (0.5-1.4) mg/dL Estim Creat Clear Calc 82.9 Estimated GFR > 60 Random Glucose 105 (60-115) mg/dL Lactic Acid 1.2 (0.5-2.0) mmol/L Calcium 9.0 (8.4-10.2) mg/dL Total Bilirubin 0.2 (0.0-1.0) mg/dL Direct Bilirubin < 0.2 (0.0-0.5) mg/dL AST 28 (5-31) U/L ALT 11 (0-31) U/L Alkaline Phosphatase 92 (39-117) U/L Total Protein 8.3 H (6.5-8.0) g/dL Albumin 3.7 (3.5-5.0) g/dL Lipase 21 (8-78) U/L Independent Interpretation I performed an independent interpretation of an: CT Scan Independent Historian Clinical information obtained from an independent historian. History obtained from or confirmed by: Friend External Record Review External record reviewed: Inpatient record Social Determinants Patient?s care significantly limited by Social Determinants of Health including: Other Social Determinant of Health Medications Administered Generic Name Dose Route Start Last Admin Trade Name Freq PRN Reason Stop Dose Admin Sodium Chloride 1,000 mls @ 999 mls/hr 02/04/23 00:30 02/04/23 00:36 Ns IV 02/04/23 01:30 999 mls/hr .[id number] ROBERT Administration Discontinued Medications Generic Name Dose Route Start Last Admin Trade Name Freq PRN Reason Stop Dose Admin Metoclopramide HCl 10 mg 02/04/23 00:17 02/04/23 00:56 Metoclopramide Hcl 10 Mg/2 Ml Vial IVPUSH 02/04/23 00:18 10 mg ONCE ONE Administration Discharge Plan Discharge Clinical Impression: Abdominal pain Qualifiers: Abdominal location: right upper quadrant Qualified Code(s): R10.11 - Right upper quadrant pain Patient Disposition: Still a Patient Prescriptions: No Action doxycycline hyclate 100 mg capsule 100 mg PO BID 7 Days Qty: 14 0RF cephalexin 500 mg capsule 500 mg PO TID 7 Days Qty: 21 0RF ondansetron 4 mg tablet,disintegrating 4 mg PO Q8H PRN (Reason: nausea and vomiting) Qty: 20 0RF
[2023-02-04] MEDS: 0.9 % Sodium Chloride 1,000 ML 999 ML IV (00:36)
[2023-02-04] MEDS: Metoclopramide HCl 10 MG/2 ML VIAL IVPUSH (00:56)
[2023-02-04] MEDS: Hydrocortisone Sod Succ/PF 100 MG VIAL 200 MG IVPUSH (01:07)
--- NOTE | 2023-02-04 02:15 | PC.NURSE ---
Patient informed that she needed to give a urine sample. Patient assisted out of bed and helped to the bathroom and was able to successfully give urine sample. Patient is generally well appearing at this time, no s/s of distress noted.
[2023-02-04 02:28] LABS: Appearance Urine Clear; Color Urine Yellow; Glucose Urine UA Negative (Negative); Leukocyte Esterase Urine Small (1+) (Negative); Nitrite Urine Negative (Negative); Specific Gravity - Urine 1.025 (1.005-1.025); UMIC TRIGGER UACC YES; Urine Blood Negative (Negative); Urine Ketones Negative (Negative); Urine Protein Negative (Neg-Trace)
[2023-02-04 02:30] LABS: UPreg QC Valid YES; Urine Pregnancy NEGATIVE (NEGATIVE)
[2023-02-04 02:33] LABS: Bacteria Urine 1+ (None Seen); RBC Urine 0-2 /HPF (0-2); UACC Culture Trigger YES; WBC Urine 21-50 /HPF (0-5)
[2023-02-04 02:36] LABS: Amphetamine Screen Urine Not Detected (Not Detect); Barbiturates, Urine Not Detected (Not Detect); Benzodiazepines Screen Urine Not Detected (Not Detect); Cannabinoid Screen Urine POSITIVE (Not Detect); Cocaine Screen Urine POSITIVE (Not Detect); Fentanyl, urine POSITIVE (Not Detect); Opiate Screen Urine Not Detected (Not Detect); Phencyclidine Screen Urine Not Detected (Not Detect)
[2023-02-04] MEDS: diphenhydrAMINE HCL 50 MG/ML VIAL IVPUSH (02:41)
[2023-02-04] MEDS: iohexoL 350 MG/ML 100 ML INFUS..BTL 85 ML IV (04:17)
--- NOTE | 2023-02-04 07:05 | PC.NURSE ---
Resumed care of patient this morning, she is currently resting comfortably in bed. Remains on monitor. Call del a rosa within reach, all other safety measures in place.
[2023-02-04] MEDS: ondansetron HCL 4 MG/2 ML VIAL IVPUSH (08:45)
[2023-02-04] MEDS: Piperacillin Sodium/Tazobactam 4.5 GM in 0.9 % Sodium Chloride 100 ML IV (08:45)
--- NOTE | 2023-02-04 09:33 | PM.HPGS ---
History of Present Illness History of Present Illness Date of Service: 02/07/23 Chief complaint: Acute cholecystitis Narrative: Isabela Dias is a 43 year old female here in the ED for abdominal pain. She says this is mostly on the right side of her abdomen. She says this has been going on for 1 week. She states she went to [facility] a few days ago and stated she is supposed to have surgery next week for her gallbladder. She says that she left the hospital because she ?did not like? [facility]. She states her pain has been ongoing. She says her pain seems worse with meals. She describes some nausea. She has a history of IVDA with heroin and cocaine but denies recent IV drug use. She says she does not see any medical doctor. Review of Systems Review of Systems: pt seems to be a poor historian, not very eager to talk Constitutional: Constitutional: Denies chills and Denies fever(s) Cardiovascular: Cardiovascular: Denies chest pain Respiratory: Respiratory: Denies cough Gastrointestinal: Gastrointestinal: Reports abdominal pain and Denies diarrhea Genitourinary: Genitourinary: Denies difficulty voiding PMFSH Past Medical History Medical History Active substance abuse Acute cholecystitis Gallstones Morbid obesity UTI (urinary tract infection) Social History Social History Household Members: Other Housing: Apartment Do you presently have visiting nurse or other home services: No Alcohol intake: current Alcohol intake frequency: holidays/special occasions only Alcohol type: hard liquor Patient Tobacco Use Status: Current everyday Tobacco user Tobacco use type: Cigarette Second Hand Smoke Exposure: Yes Substance Use Type: Crack/Cocaine Meds Allergies Allergy/AdvReac Type Severity Reaction Status Date / Time fluticasone [From FLONASE] Allergy Severe NOSEBLEEDS/ Verified 01/04/23 00:43 CLAMMY ibuprofen [Ibuprofen] Allergy Intermediate HIVES Verified 01/04/23 00:43 latex [Latex] Allergy Mild RASH Verified 01/04/23 00:43 Iodinated Contrast Media Allergy Unknown ITCHY ( Verified 01/04/23 00:43 [IV Dye, Iodine Containing] CONTRAST FOR CT ) sulfamethoxazole AdvReac Unknown NAUSEA & Verified 01/04/23 00:43 [From BACTRIM] VOMITING trimethoprim [From BACTRIM] AdvReac Unknown NAUSEA & Verified 01/04/23 00:43 VOMITING From Advair Diskus Allergy Intermediate SHORTNESS Uncoded 01/04/23 00:43 OF BREATH Advair HFA Allergy Unknown chest pain Uncoded 01/04/23 00:43 Flonase Allergy Unknown headaches, Uncoded 01/04/23 00:43 nose bleeds Ibuprofen Allergy Unknown upset Uncoded 01/04/23 00:43 stomach Latex Gloves Allergy Unknown rash Uncoded 01/04/23 00:43 Sulfa Allergy Unknown hives Uncoded 01/04/23 00:43 Contrast Dye AdvReac Unknown hives Uncoded 01/04/23 00:43 Active Medications: Current Medications Diphenhydramine HCl (Diphenhydramine Hcl 50 Mg/Ml Vial) 50 mg IVPUSH ONCE ROBERT Last Admin: 02/04/23 02:41 Dose: 50 mg Physical Exam Vital Signs: Vital Signs: Last Vital Signs Temp 98.2 F 02/03/23 23:28 Pulse 56 02/04/23 05:45 Resp 14 02/04/23 05:45 BP 125/62 02/04/23 05:45 Pulse Ox 94 02/04/23 05:45 O2 Del Method Room Air 02/04/23 05:45 BMI result Body Mass Index 35.1 Const: Other: asleep when seen, seemed comfotable General: no acute distress Resp: Effort & Inspection: normal respiratory effort Cardio: Rate: regular rate GI: Palpation (GI): Soft to palpation, not firm, Tenderness to palpation present (GI) (some tenderness on RUQ) and no guarding Results Results Labs: Short CBC 02/03/23 Range/Units 23:57 WBC 12.0 H (4.8-10.8) X10*3/uL Hgb 13.8 (12.0-16.0) g/dl Hct 42.6 (37.0-47.0) % Plt Count 315 (160-400) X10*3/uL BMP 02/03/23 23:57 Sodium 142 Potassium 3.5 Chloride 109 H Carbon Dioxide 23 BUN 12 Creatinine 0.95 Calcium 9.0 Liver Function 02/03/23 Range/Units 23:57 Total Bilirubin 0.2 (0.0-1.0) mg/dL Direct Bilirubin < 0.2 (0.0-0.5) mg/dL AST 28 (5-31) U/L ALT 11 (0-31) U/L Alkaline Phosphatase 92 (39-117) U/L Albumin 3.7 (3.5-5.0) g/dL Urine 02/04/23 02/04/23 Range/Units 02:20 02:20 Urine Color Yellow Urine Appearance Clear Urine pH 6.0 (5.0-9.0) Ur Specific [place] 1.025 (1.005-1.025) Urine Protein Negative (Neg-Trace) mg/dL Urine Glucose (UA) Negative (Negative) mg/dL Urine Test NEGATIVE (NEGATIVE) Laboratory Results WBC 12.0 X10*3/uL (4.8-10.8) H 02/03/23 23:57 RBC 4.44 X10*6/uL (4.20-5.50) 02/03/23 23:57 Hgb 13.8 g/dl (12.0-16.0) 02/03/23 23:57 Hct 42.6 % (37.0-47.0) 02/03/23 23:57 MCV 95.9 fL (80.0-98.0) 02/03/23 23:57 MCH 31.1 pg (27.0-33.0) 02/03/23 23:57 MCHC 32.4 g/dl (31.0-35.0) 02/03/23 23:57 RDW 14.9 % (11.0-16.0) 02/03/23 23:57 Plt Count 315 X10*3/uL (160-400) 02/03/23 23:57 MPV 10.5 fL (9.4-12.3) 02/03/23 23:57 Immature Gran % (Auto) 0.3 % (0.0-0.4) 02/03/23 23:57 Neut % (Auto) 53.4 % (45-73) 02/03/23 23:57 Lymph % (Auto) 38.3 % (20-40) 02/03/23 23:57 [place] % (Auto) 5.8 % (2-11) 02/03/23 23:57 Eos % (Auto) 1.5 % (0-4) 02/03/23 23:57 Baso % (Auto) 0.7 % (0-2) 02/03/23 23:57 Lymph # (Auto) 4.6 X10*3/uL (1.2-4.9) 02/03/23 23:57 [place] # (Auto) 0.7 X10*3/uL (0.1-1.2) 02/03/23 23:57 Eos # (Auto) 0.2 X10*3/uL (0.0-0.4) 02/03/23 23:57 Baso # (Auto) 0.1 X10*3/uL (0.0-0.2) 02/03/23 23:57 Abs Immat Gran (auto) 0.04 X10*3/uL (0.00-0.03) H 02/03/23 23:57 Absolute Neuts (auto) 6.4 x10*3/uL (2.0-8.3) 02/03/23 23:57 Absolute Nucleated RBC 0.000 X10*3/uL (0.0-0.012) 02/03/23 23:57 Nucleated RBC % (auto) 0.0 /100WBC (0.0-0.2) 02/03/23 23:57 Sodium 142 mmol/L (135-145) 02/03/23 23:57 Potassium 3.5 mmol/L (3.3-5.1) 02/03/23 23:57 Chloride 109 mmol/L (96-108) H 02/03/23 23:57 Carbon Dioxide 23 mmol/L (22-29) 02/03/23 23:57 Anion Gap 14 (12-20) 02/03/23 23:57 BUN 12 mg/dL (9-16) 02/03/23 23:57 Creatinine 0.95 mg/dL (0.5-1.4) 02/03/23 23:57 Estim Creat Clear Calc 82.9 02/03/23 23:57 Estimated GFR > 60 02/03/23 23:57 Random Glucose 105 mg/dL (60-115) 02/03/23 23:57 Lactic Acid 1.2 mmol/L (0.5-2.0) 02/03/23 23:56 Calcium 9.0 mg/dL (8.4-10.2) 02/03/23 23:57 Total Bilirubin 0.2 mg/dL (0.0-1.0) 02/03/23 23:57 Direct Bilirubin < 0.2 mg/dL (0.0-0.5) 02/03/23 23:57 AST 28 U/L (5-31) 02/03/23 23:57 ALT 11 U/L (0-31) 02/03/23 23:57 Alkaline Phosphatase 92 U/L (39-117) 02/03/23 23:57 Total Protein 8.3 g/dL (6.5-8.0) H 02/03/23 23:57 Albumin 3.7 g/dL (3.5-5.0) 02/03/23 23:57 Lipase 21 U/L (8-78) 02/03/23 23:57 Urine Color Yellow 02/04/23 02:20 Urine Appearance Clear 02/04/23 02:20 Urine pH 6.0 (5.0-9.0) 02/04/23 02:20 Ur Specific [place] 1.025 (1.005-1.025) 02/04/23 02:20 Urine Protein Negative mg/dL (Neg-Trace) 02/04/23 02:20 Urine Glucose (UA) Negative mg/dL (Negative) 02/04/23 02:20 Urine Ketones Negative mg/dL (Negative) 02/04/23 02:20 Urine Blood Negative (Negative) 02/04/23 02:20 Urine Nitrite Negative (Negative) 02/04/23 02:20 Ur Leukocyte Esterase Small (1+) (Negative) H 02/04/23 02:20 Urine RBC 0-2 /HPF (0-2) 02/04/23 02:20 Urine WBC 21-50 /HPF (0-5) H 02/04/23 02:20 Ur Squamous Epith Cells 3-5 /HPF (0-2) 02/04/23 02:20 Urine Bacteria 1+ (None Seen) 02/04/23 02:20 Hyaline Casts 3-5 /LPF (0-2) 02/04/23 02:20 Urine Test NEGATIVE (NEGATIVE) 02/04/23 02:20 Urine Opiates Screen Not Detected (Not Detect) 02/04/23 02:20 Urine Fentanyl Screen POSITIVE (Not Detect) H 02/04/23 02:20 Ur Barbiturates Screen Not Detected (Not Detect) 02/04/23 02:20 Ur Phencyclidine Scrn Not Detected (Not Detect) 02/04/23 02:20 Ur Amphetamines Screen Not Detected (Not Detect) 02/04/23 02:20 U Benzodiazepines Scrn Not Detected (Not Detect) 02/04/23 02:20 Urine Cocaine Screen POSITIVE (Not Detect) H 02/04/23 02:20 U Marijuana (THC) Screen POSITIVE (Not Detect) H 02/04/23 02:20 Impressions Abdomen/Pelvis CT 02/04/23 04:26 IMPRESSION: Gallbladder wall thickening/pericholecystic fluid. No definitive gallstones are seen. Consider gallbladder disease/cholecystitis. Right upper quadrant ultrasound may offer additional information. Borderline enlarged appendix measuring up to 8 mm. No periappendiceal infiltration. Correlation and follow-up needed. Fleischner guidelines were followed. Abdomen Ultrasound 02/04/23 07:58 IMPRESSION: Gallstones. Thickened edematous gallbladder wall. Findings are questionable for acute cholecystitis. There also be adenomyomatosis of the gallbladder wall. Findings will be communicated by the [place] work flow manager support services. Assessment and Plan (1) Acute cholecystitis: Status: Acute She says she has had this same pain for about a week now. I have reviewed imaging studies and thse show gallstones with acute cholecystitis. I explained to her the technique of lap michaela and possible open choelcystectomy. I explaind the risks inclduing but not limtied to bleeding, infections, injury to bowel, liver, biliary tree, retained stones, bile leak, blood clots, pneumonia, as well as the benefits and alterantives. She says she wants to proceed. I was able to talk to her sister over the phone. She says the the patient is often homeless and the sister says that she does not really have much contact with her. The patient has known IV drug abuse. Her tox screen is positive for fentanyl. I have discussed this with the anesthesiologist. (2) UTI (urinary tract infection): Status: Acute She will be covered with ZOsyn. (3) Active substance abuse: Status: Acute She has tested positive for fentanyl. The anesthesiologist will be made aware. (4) Morbid obesity: Status: Acute Time Spent With Patient Time: Total time managing care of this patient today ____ minutes. Quality Stroke Does the patient have a stroke diagnosis?: No VTE Prior VTE?: No VTE Risk Level:: Medical - moderate - high VTE Device Contraindication: N/A - Device Ordered VTE Drug Contraindication: N/A - Med Ordered Procedures Date of Service Date of Service: 02/07/23
--- NOTE | 2023-02-04 09:44 | P.HPGS_ITS ---
History of Present Illness History of Present Illness Date of Service: 02/04/23 Chief complaint: Acute cholecystitis Narrative: Isabela Dias is a 43 year old [facility] Past Medical History Medical History (Updated 02/04/23 @ 10:18 by Donnie Dyson MD) Active substance abuse Acute cholecystitis Gallstones Morbid obesity UTI (urinary tract infection) Social History Social History Alcohol intake: current Alcohol intake frequency: holidays/special occasions only Alcohol type: hard liquor Patient Tobacco Use Status: Never used Tobacco Smoked in Last 30 Days: Yes Use of substances other than those prescribed or required for medical reasons: Yes Substance Use Type: Crack/Cocaine Advance Directives: No Advance Directives Information Provided: Yes Nutrition Risks: No Nutritional Risk Meds Allergies Allergy/AdvReac Type Severity Reaction Status Date / Time fluticasone [From FLONASE] Allergy Severe NOSEBLEEDS/ Verified 01/04/23 00:43 CLAMMY ibuprofen [Ibuprofen] Allergy Intermediate HIVES Verified 01/04/23 00:43 latex [Latex] Allergy Mild RASH Verified 01/04/23 00:43 Iodinated Contrast Media Allergy Unknown ITCHY ( Verified 01/04/23 00:43 [IV Dye, Iodine Containing] CONTRAST FOR CT ) sulfamethoxazole AdvReac Unknown NAUSEA & Verified 01/04/23 00:43 [From BACTRIM] VOMITING trimethoprim [From BACTRIM] AdvReac Unknown NAUSEA & Verified 01/04/23 00:43 VOMITING From Advair Diskus Allergy Intermediate SHORTNESS Uncoded 01/04/23 00:43 OF BREATH Advair HFA Allergy Unknown chest pain Uncoded 01/04/23 00:43 Flonase Allergy Unknown headaches, Uncoded 01/04/23 00:43 nose bleeds Ibuprofen Allergy Unknown upset Uncoded 01/04/23 00:43 stomach Latex Gloves Allergy Unknown rash Uncoded 01/04/23 00:43 Sulfa Allergy Unknown hives Uncoded 01/04/23 00:43 Contrast Dye AdvReac Unknown hives Uncoded 01/04/23 00:43 Active Medications: Current Medications Diphenhydramine HCl (Diphenhydramine Hcl 50 Mg/Ml Vial) 50 mg IVPUSH ONCE ROBERT Last Admin: 02/04/23 02:41 Dose: 50 mg Home Medications Medication Instructions Recorded Confirmed Last Taken Type No Known Home Meds 02/04/23 02/04/23 Unknown History Physical Exam Vital Signs: Vital Signs: Last Vital Signs Temp 98.2 F 02/03/23 23:28 Pulse 56 02/04/23 05:45 Resp 14 02/04/23 05:45 BP 125/62 02/04/23 05:45 Pulse Ox 94 02/04/23 05:45 O2 Del Method Room Air 02/04/23 05:45 BMI result Body Mass Index 37.0 Results Results Labs: Short CBC 02/03/23 Range/Units 23:57 WBC 12.0 H (4.8-10.8) X10*3/uL Hgb 13.8 (12.0-16.0) g/dl Hct 42.6 (37.0-47.0) % Plt Count 315 (160-400) X10*3/uL BMP 02/03/23 23:57 Sodium 142 Potassium 3.5 Chloride 109 H Carbon Dioxide 23 BUN 12 Creatinine 0.95 Calcium 9.0 Liver Function 02/03/23 Range/Units 23:57 Total Bilirubin 0.2 (0.0-1.0) mg/dL Direct Bilirubin < 0.2 (0.0-0.5) mg/dL AST 28 (5-31) U/L ALT 11 (0-31) U/L Alkaline Phosphatase 92 (39-117) U/L Albumin 3.7 (3.5-5.0) g/dL Urine 02/04/23 02/04/23 Range/Units 02:20 02:20 Urine Color Yellow Urine Appearance Clear Urine pH 6.0 (5.0-9.0) Ur Specific [place] 1.025 (1.005-1.025) Urine Protein Negative (Neg-Trace) mg/dL Urine Glucose (UA) Negative (Negative) mg/dL Urine Test NEGATIVE (NEGATIVE) Assessment and Plan Time Spent With Patient Time: Total time managing care of this patient today ____ minutes. Quality VTE VTE Risk Level:: Medical - moderate - high VTE Device Contraindication: N/A - Device Ordered VTE Drug Contraindication: N/A - Med Ordered Procedures Date of Service Date of Service: 02/04/23
[2023-02-04] MEDS: Lactated Ringers 1,000 ML 999 ML IV (10:01)
--- NOTE | 2023-02-04 10:05 | PC.NURSE ---
held morphine per md order d/t sinus mary on monitor 42 bpm; dr. grant aware.
--- NOTE | 2023-02-04 10:56 | PHA.MEDREC ---
Pharmacy Consult ? Medication Reconciliation Pharmacy has completed the medication reconciliation.
[2023-02-04] MEDS: Lactated Ringers 1,000 ML 80 ML IVCONT ×2 (11:55→20:20)
--- NOTE | 2023-02-04 13:45 | PC.NURSE ---
called phlebotomy x 3; paged overhead.
[2023-02-04] MEDS: Morphine Sulfate 4 MG/ML CARTRIDGE IVPUSH (14:13)
--- NOTE | 2023-02-04 14:13 | PC.NURSE ---
pt reports 10/10 abd pain. nsr on monitor 62 bpm; pt medicated per mar. report given to OR; awaiting type and screen by phlebotomy. phlebotomy at bedside now.
[2023-02-04] MEDS: Piperacillin Sodium/Tazobactam 3.375 GM in 0.9 % Sodium Chloride 50 ML IV ×2 (15:20→20:18)
--- NOTE | 2023-02-04 15:35 | PC.NURSE ---
attempt to call report for pt to s3 nurse.
--- NOTE | 2023-02-04 15:42 | HO.ANESPROP2 ---
[facility] Active Problems Active Problems: All Active Problems (Updated 02/04/23 @ 10:18 by Donnie Dyson MD) Morbid obesity (Acute) UTI (urinary tract infection) (Acute) Acute cholecystitis (Acute) Abdominal pain (Acute) Active substance abuse (Acute) Past Medical History Medical History (Updated 02/04/23 @ 10:18 by Donnie Dyson MD) Active substance abuse Acute cholecystitis Gallstones Morbid obesity UTI (urinary tract infection) Family History Family history of problems with anesthesia: No Surgical History History of Problems with Anesthesia: No Social History Social History Alcohol intake: current Alcohol intake frequency: holidays/special occasions only Alcohol type: hard liquor Patient Tobacco Use Status: Never used Tobacco Smoked in Last 30 Days: Yes Use of substances other than those prescribed or required for medical reasons: Yes Substance Use Type: Crack/Cocaine Advance Directives: No Advance Directives Information Provided: Yes Nutrition Risks: No Nutritional Risk Meds Allergies Allergy/AdvReac Type Severity Reaction Status Date / Time fluticasone [From FLONASE] Allergy Severe NOSEBLEEDS/ Verified 01/04/23 00:43 CLAMMY ibuprofen [Ibuprofen] Allergy Intermediate HIVES Verified 01/04/23 00:43 latex [Latex] Allergy Mild RASH Verified 01/04/23 00:43 Iodinated Contrast Media Allergy Unknown ITCHY ( Verified 01/04/23 00:43 [IV Dye, Iodine Containing] CONTRAST FOR CT ) sulfamethoxazole AdvReac Unknown NAUSEA & Verified 01/04/23 00:43 [From BACTRIM] VOMITING trimethoprim [From BACTRIM] AdvReac Unknown NAUSEA & Verified 01/04/23 00:43 VOMITING From Advair Diskus Allergy Intermediate SHORTNESS Uncoded 01/04/23 00:43 OF BREATH Advair HFA Allergy Unknown chest pain Uncoded 01/04/23 00:43 Flonase Allergy Unknown headaches, Uncoded 01/04/23 00:43 nose bleeds Ibuprofen Allergy Unknown upset Uncoded 01/04/23 00:43 stomach Latex Gloves Allergy Unknown rash Uncoded 01/04/23 00:43 Sulfa Allergy Unknown hives Uncoded 01/04/23 00:43 Contrast Dye AdvReac Unknown hives Uncoded 01/04/23 00:43 Active Medications: Current Medications Diphenhydramine HCl (Diphenhydramine Hcl 50 Mg/Ml Vial) 50 mg IVPUSH ONCE ROBERT Last Admin: 02/04/23 02:41 Dose: 50 mg Heparin Sodium (Porcine) (Heparin Sodium,Porcine 5,000 Unit/Ml Vial) 5,000 unit SUBCUT Q8H ROBERT Lactated Ringer's (Lr) 1,000 mls @ 80 mls/hr IVCONT .[id number] ROBERT Last Admin: 02/04/23 11:55 Dose: 80 mls/hr Piperacillin Sod/Tazobactam (Sod 3.375 gm/ Sodium Chloride) 50 mls @ 100 mls/hr IV Q6H [facility] Sodium Chloride (0.9 % Sodium Chloride Flush 3 Ml Syringe) 3 ml IVFLUSH QSHIFT [facility] Home Medications Medication Instructions Recorded Confirmed Last Taken Type No Known Home Meds 02/04/23 02/04/23 Unknown History Exam Exam Date and Time: February 04, 2023 1542 Height,Weight and Vital Signs: Height 5 ft 3 in Weight 94.7 kg Last Vital Signs Temp 98.2 F 02/03/23 23:28 Pulse 50 02/04/23 10:06 Resp 16 02/04/23 10:06 BP 103/70 02/04/23 10:06 Pulse Ox 95 02/04/23 10:06 O2 Del Method Room Air 02/04/23 10:06 Pertinent Lab Results Pertinent Lab Results: Laboratory Tests 02/03/23 02/03/23 02/03/23 23:56 23:57 23:57 WBC 12.0 H RBC 4.44 Hgb 13.8 Hct 42.6 MCV 95.9 MCH 31.1 MCHC 32.4 RDW 14.9 Plt Count 315 MPV 10.5 Immature Gran % (Auto) 0.3 Neut % (Auto) 53.4 Lymph % (Auto) 38.3 [place] % (Auto) 5.8 Eos % (Auto) 1.5 Baso % (Auto) 0.7 Lymph # (Auto) 4.6 [place] # (Auto) 0.7 Eos # (Auto) 0.2 Baso # (Auto) 0.1 Abs Immat Gran (auto) 0.04 H Absolute Neuts (auto) 6.4 Absolute Nucleated RBC 0.000 Nucleated RBC % (auto) 0.0 Sodium 142 Potassium 3.5 Chloride 109 H Carbon Dioxide 23 Anion Gap 14 BUN 12 Creatinine 0.95 Estim Creat Clear Calc 82.9 Estimated GFR > 60 Random Glucose 105 Lactic Acid 1.2 Calcium 9.0 Total Bilirubin 0.2 Direct Bilirubin < 0.2 AST 28 ALT 11 Alkaline Phosphatase 92 Total Protein 8.3 H Albumin 3.7 Lipase 21 Urine Color Urine Appearance Urine pH Ur Specific [place] Urine Protein Urine Glucose (UA) Urine Ketones Urine Blood Urine Nitrite Ur Leukocyte Esterase Urine RBC Urine WBC Ur Squamous Epith Cells Urine Bacteria Hyaline Casts Urine Test Urine Opiates Screen Urine Fentanyl Screen Ur Barbiturates Screen Ur Phencyclidine Scrn Ur Amphetamines Screen U Benzodiazepines Scrn Urine Cocaine Screen U Marijuana (THC) Screen 02/04/23 02/04/23 02/04/23 02:20 02:20 02:20 WBC RBC Hgb Hct MCV MCH MCHC RDW Plt Count MPV Immature Gran % (Auto) Neut % (Auto) Lymph % (Auto) [place] % (Auto) Eos % (Auto) Baso % (Auto) Lymph # (Auto) [place] # (Auto) Eos # (Auto) Baso # (Auto) Abs Immat Gran (auto) Absolute Neuts (auto) Absolute Nucleated RBC Nucleated RBC % (auto) Sodium Potassium Chloride Carbon Dioxide Anion Gap BUN Creatinine Estim Creat Clear Calc Estimated GFR Random Glucose Lactic Acid Calcium Total Bilirubin Direct Bilirubin AST ALT Alkaline Phosphatase Total Protein Albumin Lipase Urine Color Yellow Urine Appearance Clear Urine pH 6.0 Ur Specific [place] 1.025 Urine Protein Negative Urine Glucose (UA) Negative Urine Ketones Negative Urine Blood Negative Urine Nitrite Negative Ur Leukocyte Esterase Small (1+) H Urine RBC 0-2 Urine WBC 21-50 H Ur Squamous Epith Cells 3-5 Urine Bacteria 1+ Hyaline Casts 3-5 Urine Test NEGATIVE Urine Opiates Screen Not Detected Urine Fentanyl Screen POSITIVE H Ur Barbiturates Screen Not Detected Ur Phencyclidine Scrn Not Detected Ur Amphetamines Screen Not Detected U Benzodiazepines Scrn Not Detected Urine Cocaine Screen POSITIVE H U Marijuana (THC) Screen POSITIVE H Airway Mallampati Class: II TM Dist: >3cm Neck ROM: Full Loose/Missing/Broken Teeth: Yes, Upper and Lower Assessment and Plan Assessment Anesthesia Assessment: Anesthesia Plan Discussed and Chart Reviewed Final Anesthetic Review Family History of Problems with Anesthesia: No History of Problems with Anesthesia: No NPO: Yes ASA Class: III and Emergency Final Preanesthetic Review: No Changes in Pt Med Stat, Meds/Allgs Chart Reviewed, Consent Obtained/Reviewed and Anes Risks/Benef Reviewed Patient Risk: Intermediate Procedure Risk: Intermediate Anesthetic Plan Anesthetic Plan: GA Disposition: Standard PACU
--- NOTE | 2023-02-04 16:34 | W.PM.OPN ---
Operative Note Operative Note Date of Service: 02/04/23 Narrative: Preop diagnosis: Acute cholecystitis Postop diagnosis: Acute calculous cholecystitis, with very edematous gallbladder wall, distended gallbladder Procedure: Laparoscopic cholecystectomy Surgeon: Arun Gonzalez MD The patient is a 43 year female with right-sided abdominal pain for the past week. Her imaging studies have shown findings consistent with acute cholecystitis. The patient under stood the technique of laparoscopic cholecystectomy. She was aware of the risks, benefits, and alternatives and had given consent. She was brought to the operating room. She was placed supine under general anesthesia via endotracheal tube. She was receiving scheduled Zosyn. The abdomen was prepped and draped in the usual sterile fashion. A surgical time-out was done. I made a supraumbilical incision on the skin using a blade 15. And this was carried down through the full-thickness of the skin subcutaneous fat down to the fascia. The fascia was incised. The peritoneum was entered. Through this incision a Christophe port was introduced. Pneumoperitoneum was introduced to a pressure of 50 minutes hg and from here on the rest of the procedure was done under vision with a 10 mm laparoscope. With laparoscopic visualization I proceeded to insert a 5/12 mm in the epigastric area below the subcostal margin through a small stab incision, and two 5 mm force along the anterior axillary and the midclavicular line in the subcostal margin as well. The patient was placed in head-up and [id number] position Able to visualize the gallbladder. This was distended and markedly edematous. I however was able to apply a grasper at the fundus of the gallbladder and this was used to retract the gallbladder cephalad. I was able to applied other grasper towards the pouch of the gallbladder and this was used to react tract the gallbladder laterally. At this point the gallbladder was being retracted and a cephalad and lateral fashion to put the area of the cystic duct on stretch. There was note of some indurated and inflamed fiber areolar tissue surrounding the neck of the gallbladder and we had to carefully stripped this done using the [place] dissector. By doing so was able to visualize the cystic duct. Seen you to define the cystic duct using the [place] dissector until I was able to confirm its confluence with the neck of the gallbladder. By doing so was able to achieve a critical view of the hepatocystic triangle. The cystic artery was also seen as a fine vessel With the confluence of the neck of the gallbladder with the cystic duct confirmed, applied clips on the cystic duct with 2 clips being applied distally and the duct was transected between clips with Endo scissors. I proceeded to carefully dissect the cystic artery as well and this was clipped and transected between clips with Endo scissors in the same fashion . I continued to apply traction the gallbladder away from the liver bed and proceeded to use the electrocautery spatula to divide the hilum. We reach the interface of the gallbladder wall and the liver bed I am proceeded to continue to separate the gallbladder along plane of dissection using a combination of of electrocautery as well as with blunt dissection using the tip of the spatula. The patient gallbladder was very edematous and inflamed and we had significant oozing during this part of the dissection. With therefore to proceed slowly and this part of the procedure took some time. Eventually, I was able to separate the gallbladder from the liver bed this was retrieved through an endobag through the umbilical incision. I reinserted all ports and re-insufflated. Since was note of some oozing earlier from the liver bed, I proceeded to apply Surgicel on to this for additional hemostasis. I reirrigated and suctioned the irrigant fluid. I observed all 4 quadrants and there was no other pathology. There was no evidence of any bowel injury or any bile leak. Once hemostasis was confirmed, I desufflated the port sites. I removed all ports under vision with the laparoscope. The umbilical port was removed last. The fascia of the umbilical incision was closed with a [id number] Dexon 0 stitch. Skin closure was achieved on all incisions using Dexon 4-0 subcuticular running sutures. Steri-Strips and dressings were applied All incisions were infiltrated with Marcaine 0.5% for postop KALLIE. The patient tolerated procedure well. There were no immediate complications. Initial and final counts of sponges and instruments were correct. Estimated blood loss was about 8 cc The patient was extubated without difficulty and transferred to the recovery room with stable vital signs
[2023-02-04] MEDS: fentaNYL citrate/PF 100 MCG/2 ML VIAL 50 MCG IVPUSH ×2 (17:16→17:31)
--- NOTE | 2023-02-04 17:16 | HO.POSTANES ---
Post Anesthesia Evaluation Post Anesthesia Evaluation Date of Service: 02/04/23 Vital Signs: Vital Signs Temp Pulse Resp BP Pulse Ox O2 Del Method O2 Flow Rate 02/04/23 17:03 193/90 H 02/04/23 16:58 41 L 20 193/90 H 98 Nasal Cannula with ETCO2 2 02/04/23 16:53 45 L 20 187/86 H 98 Nasal Cannula with ETCO2 2 02/04/23 16:48 44 L 20 186/88 H 98 Nasal Cannula with ETCO2 2 02/04/23 16:43 97.1 F 51 18 188/99 H 99 Nasal Cannula 2 02/04/23 10:06 50 16 103/70 95 Room Air 02/04/23 05:45 56 14 125/62 94 Room Air
--- NOTE | 2023-02-04 17:30 | PM.EVENT ---
Event Note Date of Service: 02/04/23 Event Note: seen postop s/p lap michaela, uneventful BP high she admits to pain otherwise looks well will ask Hospitalist for consult - HTN, IVDA, no medical doctor following pt pain mgt dw sister Miladys Time Spent With Patient Time: Total time managing care of this patient today ____ minutes.
[2023-02-04] MEDS: hydrALAZINE HCl 20 MG/ML VIAL 10 MG IVPUSH (17:41)
[2023-02-04] MEDS: Morphine Sulfate 2 MG/ML CARTRIDGE IVPUSH (20:09)
--- NOTE | 2023-02-04 21:23 | P.CONHOSP_ITS ---
Please see H&P below for full note plan History of Present Illness Data of Consult Service Date: 02/04/23 Primary Care Provider: Jessi SHI Reason for consult: Medical management Patient is a 43-year-old female with PMH significant for asthma and polysubstance use disorder currently using cocaine with a remote history of IVDU who was admitted to the hospital under general surgery for acute cholecystitis. Patient is POD #0 for lap michaela. Hospitalist consult for medical management. P atient seen and evaluated earlier this evening in her room. Patient states pain is moderately controlled with current management. Has no other acute medical concerns at this time. Denies nausea, vomiting. No fever, chills. Denies chest pain/pressure, palpitations. No shortness of breath. Of note, patient does not currently have a PCP but plans on establishing herself with 1 soon after discharge. Patient's blood pressure was noted to be high during the course the day, however last reading was normotensive at 118/60. All other vital signs stable. Review of Systems Review of Systems: Moderate abdominal pain at surgical sites Patient otherwise has no acute medical complaints Yes all other systems are reviewed and are negative [facility] Medical History Active substance abuse Acute cholecystitis Gallstones Morbid obesity UTI (urinary tract infection) Social History Household Members: Other Housing: Apartment Do you presently have visiting nurse or other home services: No Alcohol intake: current Alcohol intake frequency: holidays/special occasions only Alcohol type: hard liquor Patient Tobacco Use Status: Current everyday Tobacco user Tobacco use type: Cigarette Smoked in Last 30 Days: Yes Patient Interested in Nicotine Replacement: No Patient Given Instructions on How to Stop Smoking: No Second Hand Smoke Exposure: Yes Use of substances other than those prescribed or required for medical reasons: No Substance Use Type: Crack/Cocaine Currently Displaying Signs/Symptoms of Drug Intoxication Withdrawal: No Any prior treatment program specific to substance use: No Have you been hit, kicked, punched, or otherwise hurt by someone within the past year? If so, by whom?: No Do you feel safe in your current relationship?: Yes Is there a partner from a previous relationship who is making you feel unsafe now?: No Are you made to feel afraid or neglected: No Advance Directives: No Advance Directives Information Provided: Yes Advance Directives on File: No Do you have thoughts of harming others: None Do you have a plan to hurt others: No Plan Recently lost weight without trying: No Nutrition Risks: No Nutritional Risk Patient : No : No Poor oral hygiene: Yes Meds Allergies Allergy/AdvReac Type Severity Reaction Status Date / Time fluticasone [From FLONASE] Allergy Severe NOSEBLEEDS/ Verified 01/04/23 00:43 CLAMMY ibuprofen [Ibuprofen] Allergy Intermediate HIVES Verified 01/04/23 00:43 latex [Latex] Allergy Mild RASH Verified 01/04/23 00:43 Iodinated Contrast Media Allergy Unknown ITCHY ( Verified 01/04/23 00:43 [IV Dye, Iodine Containing] CONTRAST FOR CT ) sulfamethoxazole AdvReac Unknown NAUSEA & Verified 01/04/23 00:43 [From BACTRIM] VOMITING trimethoprim [From BACTRIM] AdvReac Unknown NAUSEA & Verified 01/04/23 00:43 VOMITING From Advair Diskus Allergy Intermediate SHORTNESS Uncoded 01/04/23 00:43 OF BREATH Advair HFA Allergy Unknown chest pain Uncoded 01/04/23 00:43 Flonase Allergy Unknown headaches, Uncoded 01/04/23 00:43 nose bleeds Ibuprofen Allergy Unknown upset Uncoded 01/04/23 00:43 stomach Latex Gloves Allergy Unknown rash Uncoded 01/04/23 00:43 Sulfa Allergy Unknown hives Uncoded 01/04/23 00:43 Contrast Dye AdvReac Unknown hives Uncoded 01/04/23 00:43 Active Medications: Current Medications Diphenhydramine HCl (Diphenhydramine Hcl 50 Mg/Ml Vial) 50 mg IVPUSH ONCE ROBERT Last Admin: 02/04/23 02:41 Dose: 50 mg Fentanyl (Fentanyl Citrate/Pf 100 Mcg/2 Ml Vial) 50 mcg IVPUSH Q5M PRN; Protoc ol PRN Reason: Pain, Severe (Pain Scale 7-10) Last Admin: 02/04/23 17:31 Dose: 50 mcg Heparin Sodium (Porcine) (Heparin Sodium,Porcine 5,000 Unit/Ml Vial) 5,000 unit SUBCUT Q8H ROBERT Lactated Ringer's (Lr) 1,000 mls @ 80 mls/hr IVCONT .[id number] [facility] Last Infusion: 02/04/23 21:13 Dose: 80 mls/hr Piperacillin Sod/Tazobactam (Sod 3.375 gm/ Sodium Chloride) 50 mls @ 100 mls/hr IV Q6H [facility] Last Infusion: 02/04/23 21:13 Dose: Infused Morphine Sulfate (Morphine Sulfate 2 Mg/Ml Cartridge) 2 mg IVPUSH Q3H PRN; Protocol PRN Reason: Pain, Severe (Pain Scale 7-10) Last Admin: 02/04/23 20:09 Dose: 2 mg Ondansetron HCl (Ondansetron Hcl 4 Mg/2 Ml Vial) 4 mg IVPUSH ONCE PRN PRN Reason: Nausea and Vomiting Ondansetron HCl (Ondansetron Hcl 4 Mg/2 Ml Vial) 4 mg IVPUSH Q6H PRN PRN Reason: Nausea Oxycodone HCl (Oxycodone Hcl Immed Release 5 Mg Tablet) 10 mg PO Q4H PRN PRN Reason: Pain, Moderate(Pain Scale 4-6) Sodium Chloride (0.9 % Sodium Chloride Flush 3 Ml Syringe) 3 ml IVFLUSH QSHIFT [facility] Last Admin: 02/04/23 20:21 Dose: Not Given Home Medications Medication Instructions Recorded Confirmed Last Taken Type No Known Home Meds 02/04/23 02/04/23 Unknown History Physical Exam Vital Signs and Narrative: Vital Signs: Last Vital Signs Temp 98 F 02/04/23 19:37 Pulse 71 02/04/23 19:37 Resp 18 02/04/23 19:37 BP 118/60 02/04/23 19:37 Pulse Ox 97 02/04/23 19:37 O2 Del Method Room Air 02/04/23 19:37 O2 Flow Rate 2 02/04/23 17:43 BMI result Body Mass Index 36.4 General: AOx3, no acute distress Resp: CTA bilaterally CVS: S1, S2, RRR GI: +BS, tenderness at surgical sites, no distention Skin: No rash Neuro: Cranial nerves II-XII grossly intact bilaterally. Motor grossly intact bilaterally Extremities: No edema Psych: Appropriate affect Results Labs 02/03/23 23:57 02/03/23 23:57 Labs: Laboratory Results - last 24 hr 08/11/23 08/11/23 08/11/23 23:56 23:57 23:57 MCV 95.9 MCH 31.1 MCHC 32.4 RDW 14.9 Plt Count 315 MPV 10.5 Immature Gran % (Auto) 0.3 Neut % (Auto) 53.4 Lymph % (Auto) 38.3 [place] % (Auto) 5.8 Eos % (Auto) 1.5 Baso % (Auto) 0.7 Lymph # (Auto) 4.6 [place] # (Auto) 0.7 Eos # (Auto) 0.2 Baso # (Auto) 0.1 Abs Immat Gran (auto) 0.04 H Absolute Neuts (auto) 6.4 Absolute Nucleated RBC 0.000 Nucleated RBC % (auto) 0.0 Anion Gap 14 Estim Creat Clear Calc 82.9 Estimated GFR > 60 Random Glucose 105 Lactic Acid 1.2 Calcium 9.0 Total Bilirubin 0.2 Direct Bilirubin < 0.2 AST 28 ALT 11 Alkaline Phosphatase 92 Total Protein 8.3 H Albumin 3.7 Lipase 21 Urine Color Urine Appearance Urine pH Ur Specific [place] Urine Protein Urine Glucose (UA) Urine Ketones Urine Blood Urine Nitrite Ur Leukocyte Esterase Urine RBC Urine WBC Ur Squamous Epith Cells Urine Bacteria Hyaline Casts Urine Test Urine Opiates Screen Urine Fentanyl Screen Ur Barbiturates Screen Ur Phencyclidine Scrn Ur Amphetamines Screen U Benzodiazepines Scrn Urine Cocaine Screen U Marijuana (THC) Screen Blood Type Antibody Screen 02/04/23 02/04/23 02/04/23 02:20 02:20 02:20 MCV MCH MCHC RDW Plt Count MPV Immature Gran % (Auto) Neut % (Auto) Lymph % (Auto) [place] % (Auto) Eos % (Auto) Baso % (Auto) Lymph # (Auto) [place] # (Auto) Eos # (Auto) Baso # (Auto) Abs Immat Gran (auto) Absolute Neuts (auto) Absolute Nucleated RBC Nucleated RBC % (auto) Anion Gap Estim Creat Clear Calc Estimated GFR Random Glucose Lactic Acid Calcium Total Bilirubin Direct Bilirubin AST ALT Alkaline Phosphatase Total Protein Albumin Lipase Urine Color Yellow Urine Appearance Clear Urine pH 6.0 Ur Specific [place] 1.025 Urine Protein Negative Urine Glucose (UA) Negative Urine Ketones Negative Urine Blood Negative Urine Nitrite Negative Ur Leukocyte Esterase Small (1+) H Urine RBC 0-2 Urine WBC 21-50 H Ur Squamous Epith Cells 3-5 Urine Bacteria 1+ Hyaline Casts 3-5 Urine Test NEGATIVE Urine Opiates Screen Not Detected Urine Fentanyl Screen POSITIVE H Ur Barbiturates Screen Not Detected Ur Phencyclidine Scrn Not Detected Ur Amphetamines Screen Not Detected U Benzodiazepines Scrn Not Detected Urine Cocaine Screen POSITIVE H U Marijuana (THC) Screen POSITIVE H Blood Type Antibody Screen 02/04/23 14:40 MCV MCH MCHC RDW Plt Count MPV Immature Gran % (Auto) Neut % (Auto) Lymph % (Auto) [place] % (Auto) Eos % (Auto) Baso % (Auto) Lymph # (Auto) [place] # (Auto) Eos # (Auto) Baso # (Auto) Abs Immat Gran (auto) Absolute Neuts (auto) Absolute Nucleated RBC Nucleated RBC % (auto) Anion Gap Estim Creat Clear Calc Estimated GFR Random Glucose Lactic Acid Calcium Total Bilirubin Direct Bilirubin AST ALT Alkaline Phosphatase Total Protein Albumin Lipase Urine Color Urine Appearance Urine pH Ur Specific [place] Urine Protein Urine Glucose (UA) Urine Ketones Urine Blood Urine Nitrite Ur Leukocyte Esterase Urine RBC Urine WBC Ur Squamous Epith Cells Urine Bacteria Hyaline Casts Urine Test Urine Opiates Screen Urine Fentanyl Screen Ur Barbiturates Screen Ur Phencyclidine Scrn Ur Amphetamines Screen U Benzodiazepines Scrn Urine Cocaine Screen U Marijuana (THC) Screen Blood Type O Positive Antibody Screen NEGATIVE Imaging Radiologist's Impressions: Impressions Abdomen/Pelvis CT 02/04/23 04:26 IMPRESSION: Gallbladder wall thickening/pericholecystic fluid. No definitive gallstones are seen. Consider gallbladder disease/cholecystitis. Right upper quadrant ultrasound may offer additional information. Borderline enlarged appendix measuring up to 8 mm. No periappendiceal infiltration. Correlation and follow-up needed. Fleischner guidelines were followed. Abdomen Ultrasound 02/04/23 07:58 IMPRESSION: Gallstones. Thickened edematous gallbladder wall. Findings are questionable for acute cholecystitis. There also be adenomyomatosis of the gallbladder wall. Findings will be communicated by the [place] work flow manager global. Assessment and Plan (1) Acute cholecystitis: Status: Acute (2) S/P laparoscopic cholecystectomy: Status: Acute Plan Patient is a 43-year-old female with PMH significant for asthma and polysubstance use disorder currently using cocaine with a remote history of IVDU who was admitted to the hospital under general surgery for acute cholecystitis. Patient is POD #0 for lap michaela. Hospitalist consult for medical management. Acute cholecystitis Plan as per General surgery Mild intermittent asthma Not in acute exacerbation Will add albuterol inhaler p.r.n. Elevated blood pressure Patient's BP elevated as high as 193/90 earlier today Patient is currently normotensive at 118/60 Patient not on antihypertensives, non currently indicated Will monitor BP closely Polysubstance use disorder Pt with remote hx of IVDU, states has not used heroin in years Denies daily alcohol use Currently only using cocaine, last 4 days ago Will add hydroxyzine 10 mg p.o. q6 for anxiety/cocaine withdrawal Thank you for allowing us to participate in the care of this patient. Will continue to follow with you for now to monitor BP. Please let us know if there are any acute complaints or questions. Time Spent With Patient Time: Total time managing care of this patient today ____ minutes.
[2023-02-05 02:44] VITALS: BP 137/78; PULSE 55; RESP 16; TEMP 36.8; O2SAT 96
[2023-02-05] MEDS: Morphine Sulfate 2 MG/ML CARTRIDGE IVPUSH (03:58)
[2023-02-05] MEDS: Piperacillin Sodium/Tazobactam 3.375 GM in 0.9 % Sodium Chloride 50 ML IV ×2 (03:58→08:34)
[2023-02-05 08:00] VITALS: BP 125/75; PULSE 60; RESP 16; TEMP 36; O2SAT 98
[2023-02-05] MEDS: Heparin Sodium,Porcine 5,000 UNIT/ML VIAL 5000 UNIT SUBCUT (08:35)
[2023-02-05] MEDS: oxyCODONE HCl Immed Release 5 MG TABLET 10 MG PO (08:39)
--- NOTE | 2023-02-05 09:33 | HO.PM.IMPN ---
Subjective Subjective Date of Service: 02/05/23 Interval History: Follow-up for patient s/p beto loomis for acute cholecystitis No acute events overnight Patient reports pain reasonably controlled on current therapy Patient has no other acute concerns other than abdominal pain at incision sites Patient has been up and out of bed Patient's BP has remained normotensive throughout the night Surgery plans to discharge later today Review of Systems Mild pain at surgical sites Patient otherwise has no acute medical complaints at this time Review of Systems: Yes all other systems are reviewed and are negative Physical Exam Vital Signs: Vital Signs: Last Vital Signs Temp 96.8 F 02/05/23 08:00 Pulse 60 02/05/23 08:00 Resp 16 02/05/23 08:00 BP 125/75 02/05/23 08:00 Pulse Ox 98 02/05/23 08:00 O2 Del Method Room Air 02/05/23 08:00 O2 Flow Rate 2 02/04/23 17:43 BMI result Body Mass Index 36.4 Objective Data Active Medications Diphenhydramine HCl (Diphenhydramine Hcl 50 Mg/Ml Vial) 50 mg IVPUSH ONCE [facility] Last Admin: 02/04/23 02:41 Dose: 50 mg Documented By: HODA Fentanyl (Fentanyl Citrate/Pf 100 Mcg/2 Ml Vial) 50 mcg IVPUSH Q5M PRN; Protocol PRN Reason: Pain, Severe (Pain Scale 7-10) Last Admin: 02/04/23 17:31 Dose: 50 mcg Documented By: OLIVIER Heparin Sodium (Porcine) (Heparin Sodium,Porcine 5,000 Unit/Ml Vial) 5,000 unit SUBCUT Q8H [facility] Last Admin: 02/05/23 08:35 Dose: 5,000 unit Documented By: YOLANDA Hydroxyzine HCl (Hydroxyzine Hcl 10 Mg Tablet) 10 mg PO Q6H PRN PRN Reason: anxiety/restlessness Lactated Ringer's (Lr) 1,000 mls @ 80 mls/hr IVCONT .[id number] [facility] Last Infusion: 02/04/23 21:13 Dose: 80 mls/hr Documented By: GURPREET Piperacillin Sod/Tazobactam (Sod 3.375 gm/ Sodium Chloride) 50 mls @ 100 mls/hr IV Q6H [facility] Last Infusion: 02/05/23 09:04 Dose: 0 mls/hr Documented By: YOLANDA Morphine Sulfate (Morphine Sulfate 2 Mg/Ml Cartridge) 2 mg IVPUSH Q3H PRN; Protocol PRN Reason: Pain, Severe (Pain Scale 7-10) Last Admin: 02/05/23 03:58 Dose: 2 mg Documented By: GURPREET Ondansetron HCl (Ondansetron Hcl 4 Mg/2 Ml Vial) 4 mg IVPUSH ONCE PRN PRN Reason: Nausea and Vomiting Ondansetron HCl (Ondansetron Hcl 4 Mg/2 Ml Vial) 4 mg IVPUSH Q6H PRN PRN Reason: Nausea Oxycodone HCl (Oxycodone Hcl Immed Release 5 Mg Tablet) 10 mg PO Q4H PRN PRN Reason: Pain, Moderate(Pain Scale 4-6) Last Admin: 02/05/23 08:39 Dose: 10 mg Documented By: YOLANDA Sodium Chloride (0.9 % Sodium Chloride Flush 3 Ml Syringe) 3 ml IVFLUSH [facility] Last Admin: 02/05/23 08:37 Dose: Not Given Documented By: YOLANDA Non-Admin Reason: IV Running Labs 02/03/23 23:57 02/03/23 23:57 Labs: Laboratory Results - last 24 hr 02/04/23 14:40 Blood Type O Positive Antibody Screen NEGATIVE Assessment and Plan (1) S/P laparoscopic cholecystectomy: Status: Acute (2) Abdominal pain: Status: Acute Plan Patient is a 43-year-old female with PMH significant for asthma and polysubstance use disorder currently using cocaine with a remote history of IVDU who was admitted to the hospital under general surgery for acute cholecystitis.? Patient is POD #0 for lap michaela.? Hospitalist consult for medical management.? Acute cholecystitis Plan as per General surgery Mild intermittent asthma Not in acute exacerbation Will add albuterol inhaler p.r.n. Elevated blood pressure Patient's BP elevated as high as 193/90 yesterday, has been normotensive since last night Patient not on antihypertensives, non currently indicated Polysubstance use disorder Pt with remote hx of IVDU, states has not used heroin in years Denies daily alcohol use Currently only using cocaine, last 4 days ago Continue hydroxyzine 10 mg p.o. q6 for anxiety/cocaine withdrawal Thank you for allowing us to participate in the care of this patient.? Will sign off for now.? Please let us know if there are any acute complaints or questions. Time Spent With Patient Time: Total time managing care of this patient today ____ minutes. Quality Stroke Does the patient have a stroke diagnosis?: No VTE Prior VTE?: No VTE Risk Level:: Medical - moderate - high VTE Device Contraindication: N/A - Device Ordered VTE Drug Contraindication: N/A - Med Ordered
--- NOTE | 2023-02-05 11:03 | P.PNGS_ITS ---
Subjective Subjective Date of Service: 02/05/23 Interval history: says she has good pain control hungry and wants to eat states she is ready to be discharged Physical Exam Vital Signs: Vital Signs: Last Vital Signs Temp 96.8 F 02/05/23 08:00 Pulse 60 02/05/23 08:00 Resp 16 02/05/23 08:00 BP 125/75 02/05/23 08:00 Pulse Ox 98 02/05/23 08:00 O2 Del Method Room Air 02/05/23 08:00 O2 Flow Rate 2 02/04/23 17:43 BMI result Body Mass Index 36.4 Const: General: comfortable and no acute distress Resp: Effort & Inspection: normal respiratory effort Cardio: Rate: regular rate GI: Other: dressings dry Palpation (GI): Soft to palpation, not firm and no guarding Objective Data Active Medications Albuterol Sulfate (Albuterol Sulfate 90 Mcg 8 Gm Inhaler) 2 puff INHALE RQ4H PRN PRN Reason: Shortness of Breath/Wheezing Diphenhydramine HCl (Diphenhydramine Hcl 50 Mg/Ml Vial) 50 mg IVPUSH ONCE [facility] Last Admin: 02/04/23 02:41 Dose: 50 mg Documented By: HODA Fentanyl (Fentanyl Citrate/Pf 100 Mcg/2 Ml Vial) 50 mcg IVPUSH Q5M PRN; Protocol PRN Reason: Pain, Severe (Pain Scale 7-10) Last Admin: 02/04/23 17:31 Dose: 50 mcg Documented By: OLIVIER Heparin Sodium (Porcine) (Heparin Sodium,Porcine 5,000 Unit/Ml Vial) 5,000 unit SUBCUT Q8H [facility] Last Admin: 02/05/23 08:35 Dose: 5,000 unit Documented By: YOLANDA Hydroxyzine HCl (Hydroxyzine Hcl 10 Mg Tablet) 10 mg PO Q6H PRN PRN Reason: anxiety/restlessness Lactated Ringer's (Lr) 1,000 mls @ 80 mls/hr IVCONT .[id number] [facility] Last Infusion: 02/04/23 21:13 Dose: 80 mls/hr Documented By: GURPREET Piperacillin Sod/Tazobactam (Sod 3.375 gm/ Sodium Chloride) 50 mls @ 100 mls/hr IV Q6H [facility] Last Infusion: 02/05/23 09:04 Dose: 0 mls/hr Documented By: YOLANDA Morphine Sulfate (Morphine Sulfate 2 Mg/Ml Cartridge) 2 mg IVPUSH Q3H PRN; Protocol PRN Reason: Pain, Severe (Pain Scale 7-10) Last Admin: 02/05/23 03:58 Dose: 2 mg Documented By: GURPREET Ondansetron HCl (Ondansetron Hcl 4 Mg/2 Ml Vial) 4 mg IVPUSH ONCE PRN PRN Reason: Nausea and Vomiting Ondansetron HCl (Ondansetron Hcl 4 Mg/2 Ml Vial) 4 mg IVPUSH Q6H PRN PRN Reason: Nausea Oxycodone HCl (Oxycodone Hcl Immed Release 5 Mg Tablet) 10 mg PO Q4H PRN PRN Reason: Pain, Moderate(Pain Scale 4-6) Last Admin: 02/05/23 08:39 Dose: 10 mg Documented By: YOLANDA Sodium Chloride (0.9 % Sodium Chloride Flush 3 Ml Syringe) 3 ml IVFLUSH [facility] Last Admin: 02/05/23 08:37 Dose: Not Given Documented By: YOLANDA Non-Admin Reason: IV Running Labs 02/03/23 23:57 02/03/23 23:57 Labs: Laboratory Results - last 24 hr 02/04/23 14:40 Blood Type O Positive Antibody Screen NEGATIVE Procedures Date of Service Date of Service: 02/05/23 Progress Note: A&P Assessment and plan (1) Acute cholecystitis: Status: Acute Assessment and Plan: status post laparoscopic cholecystectomy doing well abdomen soft okay to DC home once tolerating diet discharge instructions explained to patient office follow-up patient says she has a place to go home to Time Spent With Patient Time: Total time managing care of this patient today ____ minutes. Quality Stroke Does the patient have a stroke diagnosis?: No VTE Prior VTE?: No VTE Risk Level:: Medical - moderate - high VTE Device Contraindication: N/A - Device Ordered VTE Drug Contraindication: N/A - Med Ordered
--- NOTE | 2023-02-05 13:25 | PC.NURSE ---
Pt tolerated lunch without n/v or increased pain. Ambulated in hallway without difficulty.
--- NOTE | 2023-02-05 14:07 | MHC.CM.PN ---
PT FULLY INDEPENDENT WITH CARE NO DME NO SERVICES PT DISCHARGED HOME TODAY WITH NO SERVICES VIA PRIVATE TRANSPORT
--- NOTE | 2023-02-06 12:19 | P.DS_ITS ---
DS: Providers Provider Date of Service: 02/05/23 Date of admission: 02/04/23 09:42 Date of discharge: 02/05/23 Primary care physician: Jessi Lakhani Attending physician on admission: Arun Gonzalez Consults: 02/04/23 17:32 Consult to Hospitalist Routine Comment: Consulting Provider: Hospitalist Reason For Exam: HTN, IVDA, no medical ffup Attending physician on discharge: Arun Gonzalez DS: Diagnosis Discharge Diagnosis (1) Acute cholecystitis: Status: Acute DS: Summary Hospital Course Hospital Course: HPI AT ADMISSION: sIabela Dias is a 43 year old female here in the ED for abdominal pain. She says this is mostly on the right side of her abdomen. She says this has been going on for 1 week. She states she went to [facility] a few days ago and stated she is supposed to have surgery next week for her gallbladder. She says that she left the hospital because she ?did not like? [facility]. She states her pain has been ongoing. She says her pain seems worse with meals. She describes some nausea. Imaging studies showed gallstones with acute cholecystitis. She has a history of IVDA with heroin and cocaine but denies recent IV drug use. She says she does not see any medical doctor. HOSPITAL COURSE: The patient was admitted to the surgical service for further treatment of the acute cholecystitis. She also was found to have UTI on urinalysis. It was recommended to proceed with laparoscopic cholecystectomy possible open. She agreed. She was added onto the OR schedule for that day. On 02/04/23, a laparoscopic cholecystectomy was performed by Dr. Gonzalez without complication. The gallbladder was very edematous and distended intraoperatively. She had an uncomplicated recovery course. She felt well on POD #1 with good pain control on oral analgesics. She was tolerating a solid diet. Her abdomen was benign with c/d/i dressings. She felt ready for discharge to home. She was discharged on 02/05/23 in stable condition. She was discharged on a course of oral Augmentin. She is to follow up in the office in 2 weeks. Status at Discharge Functional status at discharge: independent ambulation Overall status at discharge: patient is progressing back to baseline Time Spent with Patient Time attestation: Total time managing care of this patient today ____ minutes. Discharge coordination time: Less than 30 minutes Quality: Safe Use of Opioids Does Pt have an Active Cancer Diagnosis on the Problem List?: No Quality: Stroke Does the patient have a stroke diagnosis?: No Physical Exam Vital Signs: Vital Signs: Last Vital Signs Temp 96.8 F 02/05/23 08:00 Pulse 60 02/05/23 08:00 Resp 16 02/05/23 08:00 BP 125/75 02/05/23 08:00 Pulse Ox 98 02/05/23 08:00 O2 Del Method Room Air 02/05/23 08:00 O2 Flow Rate 2 02/04/23 17:43 BMI result Body Mass Index 36.4 Const: General: comfortable, no acute distress and alert Orientation/consciousness: patient oriented x3 Resp: Effort & Inspection: normal respiratory effort GI: Inspection: No distended and Yes incision (dressings c/d/i) Skin: General skin exam: no rashes or lesions noted Neuro: General: patient oriented x3 and moves all extremities DS: Data Data Completed and Pending Completed studies during hospitalization [Text1]: Procedures Resection of Gallbladder, Percutaneous Endoscopic Approach (02/04/23) Pending studies at discharge: Pending at discharge 02/04/23 16:16 Surgical [PTH] Routine Discharge Plan Discharge Anticipated Discharge Date/Time: 02/05/23 11:10 Patient Disposition: Home, Self-Care Discharge Diagnosis: acute cholecystititis, UTI Referrals: Arun Gonzalez MD [Physician] - 2 Weeks Jessi Lakhani [Primary Care Provider] - 1 Week Discharge Medications: New oxycodone-acetaminophen [Percocet] 5-325 mg tablet 1 tab PO Q4-6H PRN (Reason: pain) Qty: 20 0RF Rx Instructions: Partial Fill upon patient request. amoxicillin-pot clavulanate 875-125 mg tablet 1 tab PO BID Qty: 10 0RF No Action oxycodone-acetaminophen [Percocet] 5-325 mg tablet 1 tab PO Q4-6H PRN (Reason: pain) Qty: 25 0RF Rx Instructions: Partial Fill upon patient request. Discharge Orders: Discharge Order (Routine); Ordered 02/05/23 Ordered By: Arun Gonzalez Activity on Discharge: No heavy lifting Stand Alone Forms: Patient Portal Discharge page Activity Restrictions/Additional Instructions: If the incision area is tender, you may apply an ice pack for short intervals (No more than 20 minutes on, followed by at least 20 minutes off). Do not apply heat. Do not use creams, lotions, or topical antibiotics unless instructed to do so by your surgeon. These can cause infection or allergic reaction. No lifting more than 20 lbs Okay to shower aubrie to change dressings with gauze or Band-Aid No strenuous activities Call the office for follow-up in 2 weeks - with Dr. Gonzalez Call Your Doctor If: -Your temperature exceeds 101.5? F -You experience excessive pain or swelling -You have an unexpected reaction to medication -You have excessive bleeding -You experience continued vomiting/nausea -Your incision begins to separate -Your incision shows signs of infection such as increased redness, swelling, excessive pain, drainage (light blood or clear fluid is normal) or heat Care Plan Goals: oral antibiotics pain control cessation of IV drug abuse Health Concerns: drug abuse history Plan of Treatment: oral antibiotics office follow-up Assessment: doing very well Discharge Date/Time: 02/05/23 13:25
== END 2023-02-05 13:25 | disposition home or self-care (01) | DRG 263 ==
LOC: HO.ED 02-04 07:54 → HO.EDOVER 02-04 10:06 → HO.S3 02-04 14:26
PROVIDERS: Emergency Medicine; Admitting Provider Surgery; Emergency Provider Emergency Medicine Emergency Medical Services; PCP Internal Medicine; Visit Provider Surgery
PROC: 0FT44ZZ Resection of Gallbladder, Percutaneous Endoscopic Approach (ICD-10-PCS; CPT 47562; principal; 2023-02-04 14:00)
DX: K80.00 Calculus of gallbladder with acute cholecystitis without obstruction (principal); E66.01 Morbid (severe) obesity due to excess calories; J45.20 Mild intermittent asthma, uncomplicated; F17.210 Nicotine dependence, cigarettes, uncomplicated; F19.10 Other psychoactive substance abuse, uncomplicated; N39.0 Urinary tract infection, site not specified; Z68.36 Body mass index [BMI] 36.0-36.9, adult; Z71.6 Tobacco abuse counseling; Z91.041 Radiographic dye allergy status; Z91.040 Latex allergy status; Z88.2 Allergy status to sulfonamides
CPT/HCPCS: 36415; 74177; 76705; 80048; 80076; 80307; 81001; 81025; 83605; 83690; 85025; 86850; 86900; 86901; 87086; 88304; 93005; 99285; J1100; J1200; J1643; J2250; J2270; J2405; J2543; J2765; J2795; J3010; Q9967

== ENCOUNTER → 2023-02-04 09:42 | Outpatient (BNV) | payer OTHER, SELFPAY | PROVIDERS: Admitting Provider Surgery; Emergency Provider Emergency Medicine Emergency Medical Services; PCP Internal Medicine; Visit Provider Student in an Organized Health Care Education/Training Program | DX: Z90.49 Acquired absence of other specified parts of digestive tract (principal); R10.11 Right upper quadrant pain; K81.0 Acute cholecystitis | CPT/HCPCS: 99222; 99232 ==

== ENCOUNTER → 2023-02-04 09:42 | Outpatient (BNV) | payer OTHER, SELFPAY | PROVIDERS: Admitting Provider Surgery; Emergency Provider Emergency Medicine Emergency Medical Services; PCP Internal Medicine; Visit Provider Surgery | DX: K81.0 Acute cholecystitis (principal) | CPT/HCPCS: 47562; 99024; 99222; 99238; 99499 ==

== ENCOUNTER 2023-02-27 14:26 | Emergency (ER) | payer OTHER, SELFPAY ==
[2023-02-27 14:43] VITALS: BP 104/63; BP 136/88; PULSE 88; PULSE 93; RESP 14; TEMP 36.5; O2SAT 90; O2SAT 99; BMI 33.6
--- NOTE | 2023-02-27 14:45 | ED.GENADULT ---
HPI - General Adult General Chief complaint: Overdose Stated complaint: OVERDOSE +NARCAN A&O Time Seen by Provider: 02/27/23 14:44 Source: patient and EMS Mode of arrival: EMS Limitations: other (not cooperative, angry ) History of Present Illness HPI narrative: 43-year-old female presents status post accidental overdose, patient reports she was sitting on her porch, had a Percocet that must have been laced, she reports that she got Narcan, according to EMS she got mg of intranasal Narcan by a neighbor. Not suicidal or homicidal. Patient angry when she gets here she states she wants to leave. She reports is no reason for her to be here she tells me she is fine. She reports this is accidental and she is not suicidal or homicidal and she does not understand why she has to be here. Refusing for labs, observation, security at bedside, patient not cooperative. Related Data Previous Rx's Medication Instructions Recorded amoxicillin 875 mg-potassium 1 tab PO BID #10 tabs 02/05/23 clavulanate 125 mg tablet oxycodone-acetaminophen 5 mg-325 1 tab PO Q4-6H PRN pain #20 tabs 02/05/23 mg tablet (Percocet) oxycodone-acetaminophen 5 mg-325 1 tab PO Q4-6H PRN pain #10 tabs 02/07/23 mg tablet (Percocet) naloxone 4 mg/actuation nasal 4 mg intranasal Q2M PRN opioid 02/27/23 spray (Narcan) overdose #2 ea Allergies Allergy/AdvReac Type Severity Reaction Status Date / Time fluticasone [From FLONASE] Allergy Severe NOSEBLEEDS/ Verified 02/27/23 14:48 CLAMMY ibuprofen [Ibuprofen] Allergy Intermediate HIVES Verified 02/27/23 14:48 latex [Latex] Allergy Mild RASH Verified 02/27/23 14:48 Iodinated Contrast Media Allergy Unknown ITCHY ( Verified 02/27/23 14:48 [IV Dye, Iodine Containing] CONTRAST FOR CT ) sulfamethoxazole AdvReac Unknown NAUSEA & Verified 02/27/23 14:48 [From BACTRIM] VOMITING trimethoprim [From BACTRIM] AdvReac Unknown NAUSEA & Verified 02/27/23 14:48 VOMITING From Advair Diskus Allergy Intermediate SHORTNESS Uncoded 01/04/23 00:43 OF BREATH Advair HFA Allergy Unknown chest pain Uncoded 01/04/23 00:43 Flonase Allergy Unknown headaches, Uncoded 01/04/23 00:43 nose bleeds Ibuprofen Allergy Unknown upset Uncoded 01/04/23 00:43 stomach Latex Gloves Allergy Unknown rash Uncoded 01/04/23 00:43 Sulfa Allergy Unknown hives Uncoded 01/04/23 00:43 Contrast Dye AdvReac Unknown hives Uncoded 01/04/23 00:43 Review of Systems Review of Systems: Constitutional : No Fever, No Chills ENT/Mouth : No sore throat, No Rhinorrhea Eyes: No Eye Pain, No Swelling, No Redness Cardiovascular : No Chest Pain, No SOB Respiratory : No Cough, No Sputum Gastrointestinal : No Nausea, No Vomiting, No Diarrhea, No abdominal Pain Genitourinary : No Dysuria, No Hematuria Musculoskeletal : No joint pain, No Myalgias, No Joint Swelling Skin : No Skin Lesions, No rash Neuro : No Weakness, No Numbness Psych : No Anxiety, No Depression, No SI/HI/AH/VH Heme/Lymph: No Bruising, No Bleeding Endocrine : No Polyuria, No Polydipsia All other systems reviewed and are negative Yes all other systems are reviewed and are negative [facility] Past Medical History Attestation statement: The following information was validated with the patient. Source: old records reviewed and nursing notes reviewed Medical History Active substance abuse Acute cholecystitis Gallstones Morbid obesity UTI (urinary tract infection) Social History Social History Household Members: Other Housing: Apartment Do you presently have visiting nurse or other home services: No Alcohol intake: current Alcohol intake frequency: holidays/special occasions only Alcohol type: hard liquor Patient Tobacco Use Status: Current everyday Tobacco user Tobacco use type: Cigarette Second Hand Smoke Exposure: Yes Substance Use Type: Crack/Cocaine Advance Directives: No Advance Directives Information Provided: No Physical Exam ED Vital Signs: Vital Signs - 24 hr 02/27/23 14:43 Temperature 97.7 F Pulse Rate 93 Respiratory Rate 14 Blood Pressure 104/63 Pulse Oximetry 99 Oxygen Delivery Method Nasal Cannula BMI result Body Mass Index 33.6 vss Appearance: Alert.? Oriented X3.? No acute distress.? Head: Normocephalic, atraumatic, no step-offs or deformities Eyes: Pupils equal, round and reactive to light.? Neck: Normal inspection.? Neck supple.? CVS: Normal heart rate and rhythm.? Pulses normal.? Respiratory: No respiratory distress.? Breath sounds normal.? Abdomen: Soft and nontender.? Skin: Skin warm and dry.? Normal skin color.? Normal skin turgor.? Extremities: No lower extremity edema.? No calf ttp. 5/5 strength to bilateral upper and lower extremities Neuro: Oriented X 3.? No motor deficit.? No sensory deficit. CN 2-12 intact Course Reevaluation(s) Reevaluation #1: Patient adamant that she is leaving, she says part of it is because she does not want to change management however she still unwilling to stay regardless, she does not want labs, or observation she says she is fine she says she took a Percocet from her gallbladder surgery that was left over. Patient's sister at the bedside who tried to convince patient, patient is still uncooperative unwilling to follow hospital protocol, she states she would just like to leave. No SI or HI. Verbalizes understanding com alert and oriented times red time the decision was made. Educated patient on diagnosis and treatment plan, answered all question, patient verbalizes understanding. At this time patient will be discharged home, advised to return with new or worsening symptoms. Educated on worrisome signs and symptoms and when to return. Advised her to return if she changes her mind Time: 15:09 Reevaluation #2: Patient went home with sister. Medications Administered Discontinued Medications Generic Name Dose Route Start Last Admin Trade Name Yolanda PRN Reason Stop Dose Admin Naloxone HCl 8 mg 02/27/23 15:05 02/27/23 15:28 Naloxone Hcl Nasal Take Home 4 Mg [place] NOSTRILALT 02/27/23 15:06 8 mg ONCE ONE Administration Medical Decision Making Medical Decision Making [facility] Narrative: 1451 43-year-old female presents status post accidental overdose, given Narcan 60 mg intranasally. No SI or HI. Angry on arrival in would like to leave Physical examination benign Likely accidental opiate overdose. Unlikely metabolic derangements. No signs of trauma to head, neck, chest, abdomen or pelvis. Plan- medical clearance and SUDE ideally but patient refusing and demanding to leave. Differential Diagnosis Differential Diagnoses: The differential diagnosis associated with the presentation includes Likely accidental opiate overdose. Unlikely metabolic derangements. No signs of trauma to head, neck, chest, abdomen or pelvis. Admission/Observation Consideration of admission/observation: Escalation of care including admission/observation considered unlikely Core Measures AMI core measures followed: Yes Measure exclusions: not indicated Critical Care Time Critical Care Time Critical Care Time: No Discharge Plan Discharge Clinical Impression: Drug overdose, Left against medical advice Patient Disposition: Home, Self-Care Additional Instructions: Take your medications as prescribed. If you were prescribed antibiotics today, it is important that you take your medication to their entirety, do not skip any doses, do not finish them early. Follow-up with your primary care provider this week. Return to the emergency department with new or worsening symptoms. Such as fevers, chills, chest pain, shortness of breath, nausea, vomiting, dizziness, headache, vision changes, lethargy In case of emergency call [phone] You decided to leave against medical advice, this is concerning because you got high levels of Narcan, Narcan can wear off and you can overdose again and potentially from respiratory distress or cardiac rest. Please use Narcan as instructed. And please return if you change your mind. Prescriptions: New naloxone [Narcan] 4 mg/actuation spray,non-aerosol 4 mg intranasal Q2M PRN (Reason: opioid overdose) Qty: 2 0RF Rx Instructions: spray 1 dose into ONE nostril; alternate nostrils w each dose until help arrives No Action oxycodone-acetaminophen [Percocet] 5-325 mg tablet 1 tab PO Q4-6H PRN (Reason: pain) Qty: 10 0RF Rx Instructions: Partial Fill upon patient request. oxycodone-acetaminophen [Percocet] 5-325 mg tablet 1 tab PO Q4-6H PRN (Reason: pain) Qty: 20 0RF Rx Instructions: Partial Fill upon patient request. amoxicillin-pot clavulanate 875-125 mg tablet 1 tab PO BID Qty: 10 0RF Referrals: ED Physician,Generic [Physician] - 2 days Stand Alone Forms: Against Medical Advice Discharge Date/Time: 02/27/23 15:30
[2023-02-27] MEDS: Naloxone HCl Nasal TAKE HOME 4 MG SPRAY 8 MG NOSTRILALT (15:28)
--- NOTE | 2023-02-27 15:28 | PC.NURSE ---
emission specialist, this RN called over to assist pt with d/c, pt initially not wanting to change, security to bedside and sister Halle, pt then agreeable to be searched to stay longer for monitoring. When attempting to search pt, pt then again requesting to leave ama. Sat monitored for approx 5min and 96-98%, pt remained alert/awake. To be d/c'd with sister Halle. Take home narcan provided. Steady on feet
== END 2023-02-27 15:30 | disposition home or self-care (01) ==
PROVIDERS: Emergency Provider Emergency Medicine
DX: T40.2X1A Poisoning by other opioids, accidental (unintentional), initial encounter (principal); Y92.9 Unspecified place or not applicable
CPT/HCPCS: 99281; 99283

== ENCOUNTER 2023-04-14 10:53 | Emergency (ER) | payer OTHER, SELFPAY ==
--- NOTE | ~2023-04-14 | XR_ITS ---
EXAMINATION: XR KNEE, RIGHT CLINICAL INFORMATION: Pain, injury COMPARISON: None available. TECHNIQUE: Four views of the right knee. FINDINGS: No acute fracture or dislocation. XR/XR knee RT 3V IMPRESSION: No acute fracture or dislocation right knee.
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
[2023-04-14 11:08] VITALS: BP 114/83; PULSE 90; RESP 19; TEMP 36.6; O2SAT 98; BMI 32.8
[2023-04-14] MEDS: Diphth,Pertus(ACell),Tet Adult 0.5 ML SYRINGE IM (12:53)
[2023-04-14] MEDS: Acetaminophen 325 MG TABLET 650 MG PO (13:12)
[2023-04-14] MEDS: Ketorolac Tromethamine 30 MG/ML VIAL IM (13:38)
[2023-04-14 14:09] VITALS: BP 108/72; PULSE 92; RESP 16; TEMP 36.4; O2SAT 99
[2023-04-14] MEDS: Bacitracin Oint 0.9 GM PACKET 2 APPL TOPICAL (14:32)
== END 2023-04-14 14:37 | disposition home or self-care (01) ==
PROVIDERS: Emergency Provider Emergency Medicine
DX: S02.2XXA Fracture of nasal bones, initial encounter for closed fracture (principal); S00.81XA Abrasion of other part of head, initial encounter; S06.0X0A Concussion without loss of consciousness, initial encounter; M25.561 Pain in right knee; R51.9 Headache, unspecified; F17.210 Nicotine dependence, cigarettes, uncomplicated; Y04.8XXA Assault by other bodily force, initial encounter; Y93.9 Activity, unspecified; Y92.9 Unspecified place or not applicable; Y99.9 Unspecified external cause status; Z71.6 Tobacco abuse counseling; Z79.899 Other long term (current) drug therapy; Z23 Encounter for immunization
CPT/HCPCS: 70450; 70486; 72125; 73562; 90471; 90715; 96372; 99284; J1885

== ENCOUNTER 2023-05-01 01:11 | Emergency (ER) | payer OTHER, SELFPAY ==
[2023-05-01 01:12] VITALS: BP 129/78; PULSE 100; RESP 18; TEMP 36.7; O2SAT 98; BMI 29.5
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
== END 2023-05-01 02:25 | disposition left against medical advice (07) ==
LOC: HO.ED 02:25
PROVIDERS: Emergency Provider Emergency Medicine
DX: R10.30 Lower abdominal pain, unspecified (principal)
CPT/HCPCS: 99281

== ENCOUNTER 2023-06-30 00:38 | Emergency (ER) | payer OTHER, SELFPAY ==
[2023-06-30 01:00] VITALS: BP 145/92; BP 150/82; PULSE 109; PULSE 82; RESP 18; TEMP 36.5; O2SAT 98; BMI 33.7
--- NOTE | 2023-06-30 02:56 | MHC.EDTECH ---
Labs were obtained and sent to lab
[2023-06-30 03:06] VITALS: BP 125/70; PULSE 75; RESP 18; O2SAT 99
--- NOTE | 2023-06-30 03:06 | MHC.EDTECH ---
pt refusing redraw of labs. rn aware.
[2023-06-30 03:18] LABS: Alanine Aminotransferase 11 U/L (0-31); Albumin Level 3.7 g/dL (3.5-5.0); Alkaline Phosphatase 94 U/L (39-117); Anion Gap 13 (12-20); Aspartate Amino Transferase 33 U/L (5-31); Bilirubin Direct < 0.2 mg/dL (0.0-0.5); Bilirubin Total 0.2 mg/dL (0.0-1.0); Blood Urea Nitrogen 16 mg/dL (9-16); Calcium 8.9 mg/dL (8.4-10.2); Carbon Dioxide 22 mmol/L (22-29); Chloride 110 mmol/L (96-108); Creatinine Clr Calc Pharmacy 106.9; Estimated Glomerular Filt Rate > 60; Glucose Random 98 mg/dL (60-115); HCG Quantitative < 2 mIU/mL; Potassium 3.8 mmol/L (3.3-5.1); Sodium 141 mmol/L (135-145); Total Protein 8.1 g/dL (6.5-8.0)
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
[2023-06-30 05:15] VITALS: RESP 16
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
[2023-06-30 06:29] VITALS: BP 127/73; PULSE 66; RESP 16; O2SAT 97
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
[2023-06-30 07:29] VITALS: BP 130/95; PULSE 66; RESP 16; O2SAT 100
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
== END 2023-06-30 08:40 | disposition home or self-care (01) ==
PROVIDERS: Emergency Provider Emergency Medicine
DX: S09.90XA Unspecified injury of head, initial encounter (principal); S69.91XA Unspecified injury of right wrist, hand and finger(s), initial encounter; T76.21XA Adult sexual abuse, suspected, initial encounter; Y04.2XXA Assault by strike against or bumped into by another person, initial encounter; Y93.9 Activity, unspecified; Y92.9 Unspecified place or not applicable; Y99.9 Unspecified external cause status; Z79.899 Other long term (current) drug therapy
CPT/HCPCS: 36415; 73120; 80048; 80076; 80307; 84702; 85025; 99283; 99284

== ENCOUNTER 2023-07-13 14:28 | Emergency (ER) | payer OTHER, SELFPAY ==
[2023-07-13 14:33] VITALS: BP 150/82; PULSE 112; O2SAT 99
[2023-07-13 14:46] VITALS: BP 136/88; PULSE 88; RESP 16; TEMP 36.6; O2SAT 95; BMI 30.9
[2023-07-13 14:51] VITALS: BP 136/88; PULSE 88; RESP 16; TEMP 36.6; O2SAT 95
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
--- NOTE | 2023-07-13 14:59 | PC.NURSE ---
Pt a&ox4 coming in for an accidental overdose. Reports she did the normal amount of cocaine, thinks it was laced with something. Pt denies pain, Resp even and unlabored. Pt refused to global climate change researcher to hospital attire Provider Malinda aware.
[2023-07-13] MEDS: Ondansetron ODT 4 MG TAB.RAPDIS TRANSLINGU (15:03)
--- NOTE | 2023-07-13 16:07 | HO.SUDE ---
Met with pt in [id number] after pt presented with an overdose, per EMS, received 20 mg Narcan. Pt laying in bed, awake, alert, easily engages in conversation, appears comfortable. Pt reports using cocaine daily, $20 IV/IN, as well as occasional alcohol. Pt reports last opioid use one year ago. Pt reports longest period in recovery [id number]. Pt reports she has been receiving Vivitrol through [place], did not receive it this month due to life stressors. Pt reports typically getting cocaine from a specific person, reports that when she obtains it from another source it results in overdose. Pt reports this is 6th overdose. Pt is not interested in inpatient treatment. Discussed outpatient treatment, pt reports she has a voice coach, is not interested in other referrals. Discussed harm reduction, fentanyl test strips, pt verbalizes understanding and provided with test strips. Educated pt on [facility], pt reports it is too far to walk. Provided pt with [facility] delivery phone number and encouraged pt to call/text. Pt declines other resources at this time. Denies questions or concerns for t/w.
[2023-07-13] MEDS: Naloxone HCl Nasal TAKE HOME 4 MG SPRAY 8 MG NOSTRILALT (16:22)
== END 2023-07-13 16:25 | disposition home or self-care (01) ==
PROVIDERS: Emergency Provider Emergency Medicine
DX: T40.5X1A Poisoning by cocaine, accidental (unintentional), initial encounter (principal); Y92.9 Unspecified place or not applicable; F17.210 Nicotine dependence, cigarettes, uncomplicated; F14.19 Cocaine abuse with unspecified cocaine-induced disorder; Z71.51 Drug abuse counseling and surveillance of drug abuser; Z71.6 Tobacco abuse counseling; Z79.899 Other long term (current) drug therapy
CPT/HCPCS: 99284

== ENCOUNTER 2023-09-06 10:41 | Emergency (ER) | payer SELFPAY ==
[2023-09-06 10:52] VITALS: BP 142/85; PULSE 87; RESP 16; TEMP 36.6; O2SAT 99; BMI 31.9
[2023-09-06 11:32] LABS: IDNOW Serial# 08D9AD1C; Strep A Nucleic Acid Negative (Negative)
[2023-09-06 11:59] LABS: Influenza A PCR NEGATIVE (Negative); Influenza B PCR NEGATIVE (Negative); Resp Syncy Virus RNA Qual PCR NEGATIVE (Negative); SARS COV2 PCR INHOUSE NEGATIVE (Negative)
--- NOTE | 2023-09-06 12:27 | ED_ITS ---
HPI - General Adult General Chief complaint: Upper Respiratory Symptoms Stated complaint: Headache Sore Throat Time Seen by Provider: 09/06/23 12:25 Source: patient Mode of arrival: ambulatory Limitations: no limitations History of Present Illness HPI narrative: Patient is a 43 year old assigned female at with a history of substance abuse presenting to the emergency department today with chills, cough, and sore throat. Patient states that over the last 2 days she has had chills, cough, and a sore throat. Patient denies any dizziness, lightheadedness, abdominal pain, nausea, vomiting, fever, blurry vision, double vision, loss of vision, chest pain, difficulty breathing, shortness of breath, back pain, night sweats, pain with urination, increased urinary frequency, increased urinary urgency, blood in her urine or stool, syncope or a near syncopal episode, recent trauma or falls, bowel incontinence, bladder incontinence, bowel retention, bladder retention, or any other complaints at this time. Onset (ago): day(s) (2) Severity: mild Severity scale (1-10): 2 Relieving factors: none Exacerbating factors: none Associated symptoms: cough and fever/chills Treatments prior to arrival: none Related Data Previous Rx's Medication Instructions Recorded amoxicillin 875 mg-potassium 1 tab PO BID #10 tabs 02/05/23 clavulanate 125 mg tablet oxycodone-acetaminophen 5 mg-325 1 tab PO Q4-6H PRN pain #20 tabs 02/05/23 mg tablet (Percocet) oxycodone-acetaminophen 5 mg-325 1 tab PO Q4-6H PRN pain #10 tabs 02/07/23 mg tablet (Percocet) naloxone 4 mg/actuation nasal 4 mg intranasal Q2M PRN opioid 02/27/23 spray (Narcan) overdose #2 ea ketorolac 10 mg tablet 10 mg PO TID PRN pain 5 days #15 04/14/23 tabs Allergies Allergy/AdvReac Type Severity Reaction Status Date / Time fluticasone [From FLONASE] Allergy Severe NOSEBLEEDS/ Verified 09/06/23 10:55 CLAMMY ibuprofen [Ibuprofen] Allergy Intermediate HIVES Verified 09/06/23 10:55 latex [Latex] Allergy Mild RASH Verified 09/06/23 10:55 Iodinated Contrast Media Allergy Unknown ITCHY ( Verified 09/06/23 10:55 [IV Dye, Iodine Containing] CONTRAST FOR CT ) sulfamethoxazole AdvReac Unknown NAUSEA & Verified 09/06/23 10:55 [From BACTRIM] VOMITING trimethoprim [From BACTRIM] AdvReac Unknown NAUSEA & Verified 09/06/23 10:55 VOMITING From Advair Diskus Allergy Intermediate SHORTNESS Uncoded 04/14/23 11:08 OF BREATH Advair HFA Allergy Unknown chest pain Uncoded 04/14/23 11:08 Flonase Allergy Unknown headaches, Uncoded 04/14/23 11:08 nose bleeds Ibuprofen Allergy Unknown upset Uncoded 01/04/23 00:43 stomach Latex Gloves Allergy Unknown rash Uncoded 01/04/23 00:43 Sulfa Allergy Unknown hives Uncoded 01/04/23 00:43 Contrast Dye AdvReac Unknown hives Uncoded 01/04/23 00:43 Review of Systems Constitutional: Constitutional: Reports no additional constitutional complaints, Reports chills, Denies fever(s) and Denies night sweats Eyes: Eyes: Reports no additional eye complaints, Denies blurry vision, Denies change in vision, Denies diplopia, Denies eye discharge, Denies loss of vision and Denies eye pain ENT: Denies dizziness and Reports sore throat Cardiovascular: Cardiovascular: Reports no additional cardiovascular complaints, Denies chest pain, Denies lightheadedness, Denies Loss of Consciousness and Denies dyspnea Respiratory: Respiratory: Reports no additional respiratory complaints, Reports cough and Denies dyspnea Gastrointestinal: Gastrointestinal: Reports no additional gastrointestinal complaints, Denies abdominal pain, Denies melena, Denies hematochezia, Denies change in bowel habits and Denies change in stool character Genitourinary: Genitourinary: Denies hematuria, Denies urinary frequency, Denies dysuria, Denies urinary incontinence, Denies urinary hesitancy and Denies urinary urgency Musculoskeletal: Musculoskeletal: Reports no additional musculoskeletal complaints, Denies numbness and Denies tingling Neurologic: Denies dizziness, Denies loss of vision, Denies numbness and Denies tingling Psychiatric: Psychiatric: Reports no additional psychiatric complaints Endocrine: Endocrine: Reports no additional endocrine complaints Hematologic/Lymphatic: Hematologic/Lymphatic: Reports no additional hematologic/lymphatic complaints Allergic/Immunologic: Allergic/Immunologic: Reports no additional allergic/immunologic complaints PMFSH Past Medical History Attestation statement: The following information was validated with the patient. Source: old records reviewed and nursing notes reviewed Medical History Active substance abuse Morbid obesity UTI (urinary tract infection) Acute cholecystitis Active substance abuse Gallstones Social History Social History Household Members: Other Housing: Apartment Do you presently have visiting nurse or other home services: No Alcohol intake: current Alcohol intake frequency: holidays/special occasions only Alcohol type: hard liquor Patient Tobacco Use Status: Current everyday Tobacco user Tobacco use type: Cigarette Second Hand Smoke Exposure: Yes Substance Use Type: Marijuana Advance Directives: No Advance Directives Information Provided: No Physical Exam ED Vital Signs: Vital Signs - 24 hr 09/06/23 10:52 Temperature 97.8 F Pulse Rate 87 Respiratory Rate 16 Blood Pressure 142/85 H Pulse Oximetry 99 Oxygen Delivery Method Room Air BMI result Body Mass Index 31.9 Const General: cooperative, no acute distress, alert and awake Nutritional Appearance: well nourished Orientation/consciousness: patient oriented x3 Limitations: no limitations HENMT Head: Yes normal to inspection and Yes atraumatic Ears: hearing grossly normal bilaterally and external ears normal General nose exam: Normal external nose present, no nasal discharge noted and no epistaxis Face and sinus: Yes normal facial exam, No abrasion and No laceration Mouth: Normal oral and palatal mucosa present, no drooling and no muffled voice Throat: Yes abnormal tonsil (bilateral erythema) Eyes General: appearance normal, both eyes and all related structures Periorbital: periorbital findings normal Eyelids: Yes eyelids normal Conjunctivae: conjunctivae normal Pupils: Equal, round and reactive pupils present EOM: EOMs intact bilaterally Neck Neck: Yes normal visual inspection, Yes full ROM and Yes no lymphadenopathy Chest Chest palpation & inspection: normal inspection of the chest Resp Effort & Inspection: normal respiratory effort and able to speak in complete sentences GI Inspection: Yes normal to inspection Neuro General: patient oriented x3 and moves all extremities Cranial nerves: Yes Equal, round and reactive pupils present Cognition (Neuro): normal cognition Motor exam (neuro): 5/5 motor strength present throughout Sensory Exam: Normal double simultaneous stimulation for sensation Coordination: [id number] test normal Extrem General: Yes normal to inspection, Yes full ROM and Yes capillary refill normal Psych Appearance: grossly normal Mental Status: mental status grossly normal Affect: normal affect Attitude: cooperative Thought process: Normal thought process present Thought content: Normal thought content present Insight: Good insight present (Psych) Medications Administered Discontinued Medications Generic Name Dose Route Start Last Admin Trade Name Hollandq PRN Reason Stop Dose Admin Dexamethasone Sodium Phosphate 10 mg 09/06/23 12:30 09/06/23 12:46 Dexamethasone Sod Phosphate 10 Mg/Ml Vial PO 09/06/23 12:31 10 mg ONCE ONE Administration Medical Decision Making Medical Decision Making MDM Narrative: Patient is a 43 year old assigned female at with a history of substance use presenting to the emergency department today with a sore throat and chills. Patient's physical exam was as noted in the physical exam portion of this note. Patient's COVID-19, influenza, RSV, and pharyngitis swabs were negative. I explained my physical exam findings as well as all test results to the patient. I answered all questions asked by the patient. I stressed the importance of the patient taking her medication as prescribed. I stressed the importance of the patient following up with her primary care provider. I stressed the importance of the patient returning to the emergency department immediately if her symptoms were to worsen or if she were to develop any dizziness, shortness of breath, difficulty breathing, chest pain, blurry vision, loss of vision, nausea, vomiting, abdominal pain, fever, chills, back pain, or any other complaints. Patient verbalized agreement and understanding with this treatment plan and discharge. Differential Diagnosis Differential Diagnoses: The differential diagnosis associated with the presentation includes Strep pharyngitis RSV COVID-19 Influenza Admission/Observation Consideration of admission/observation: Escalation of care including admission/observation considered Patient would have been admitted to the hospital had her work up had any findings where hospital admission was appropriate and her clinical presentation warranted hospital admission. Lab Data [facility] Lab Attestation statement: I reviewed the patient's lab results. My interpretation of these results are in the MDM Rationale portion of this note. Labs: Lab Results 09/06/23 Range/Units 11:09 Influenza Type A (PCR) NEGATIVE (Negative) Influenza Type B (PCR) NEGATIVE (Negative) RSV RNA Qual (PCR) NEGATIVE (Negative) SARS-CoV-2 RNA (RT-PCR) NEGATIVE (Negative) S. pyogenes GrpA JESICA Negative (Negative) Discharge Plan Discharge Clinical Impression: Pharyngitis, URI (upper respiratory infection) Patient Disposition: Home, Self-Care Instructions: Pharyngitis (ED), Upper Respiratory Infection (DC) Additional Instructions: Follow up with your primary care provider. Return to the emergency department immediately if your symptoms worsen or if you develop any dizziness, shortness of breath, difficulty breathing, chest pain, blurry vision, loss of vision, nausea, vomiting, abdominal pain, fever, chills, back pain, or any other complaints. Prescriptions: No Action oxycodone-acetaminophen [Percocet] 5-325 mg tablet 1 tab PO Q4-6H PRN (Reason: pain) Qty: 10 0RF Rx Instructions: Partial Fill upon patient request. oxycodone-acetaminophen [Percocet] 5-325 mg tablet 1 tab PO Q4-6H PRN (Reason: pain) Qty: 20 0RF Rx Instructions: Partial Fill upon patient request. amoxicillin-pot clavulanate 875-125 mg tablet 1 tab PO BID Qty: 10 0RF naloxone [Narcan] 4 mg/actuation spray,non-aerosol 4 mg intranasal Q2M PRN (Reason: opioid overdose) Qty: 2 0RF Rx Instructions: spray 1 dose into ONE nostril; alternate nostrils w each dose until help arrives ketorolac 10 mg tablet 10 mg PO TID PRN (Reason: pain) 5 Days Qty: 15 0RF Referrals: [facility] [place] Family Medicine [Provider Group] (Call to establish and follow up with a primary care provider. If you already have a primary care provider, please follow up with them.) [facility] [place] Primary [facility] [Provider Group] (Call to establish and follow up with a primary care provider. If you already have a primary care provider, please follow up with them.) [facility] [place] Primary [facility] [Provider Group] (Call to establish and follow up with a primary care provider. If you already have a primary care provider, please follow up with them.) Stand Alone Forms: Work/School Release Interventions: ED Discharge Assessment Last Done: 09/06/23 12:49 Discharge Date/Time: 09/06/23 12:49 Print Language: Tunisian
[2023-09-06] MEDS: dexAMETHasone sod phosphate 10 MG/ML VIAL PO (12:46)
== END 2023-09-06 12:49 | disposition home or self-care (01) ==
PROVIDERS: Emergency Provider Emergency Medicine Emergency Medical Services
DX: J02.9 Acute pharyngitis, unspecified (principal); J06.9 Acute upper respiratory infection, unspecified; R51.9 Headache, unspecified; Z11.52 Encounter for screening for COVID-19; Z20.822 Contact with and (suspected) exposure to COVID-19
CPT/HCPCS: 0241U; 87651; 99282; 99283; J1100

== ENCOUNTER 2023-09-17 00:49 | Emergency (ER) | payer OTHER, SELFPAY ==
--- NOTE | ~2023-09-17 | CT_ITS ---
EXAMINATION: CT SOFT TISSUE NECK WITHOUT CONTRAST CLINICAL INFORMATION: Sore throat. COMPARISON: None available. TECHNIQUE: Helical imaging was performed in the axial plane with generation of coronal and sagittal reformatted images. This CT examination was performed using dose optimization techniques as appropriate, variously including the following: *Automated exposure control *Adjustment of mA and/or kV according to patient size (this includes techniques or standardized protocols for targeted exams where dose is matched to indication/reason for exam; i.e. extremities or head) *Use of iterative reconstruction technique DLP: 406 mGy-cm FINDINGS: The lingual and palatine tonsils are prominent. There is no fluid collection. The prevertebral/retropharyngeal soft tissues are unremarkable. There are numerous scattered small nonspecific bilateral cervical lymph nodes. The parotid glands and thyroid glands are unremarkable. The right submandibular gland is enlarged relative to the left. There is bilateral ethmoid and maxillary sinus mucosal thickening. There is partial right mastoid opacification. The visualized upper lung vega are clear. There is moderate C4-C5 to C6-C7 disc degenerative change. CT/CT soft tissue neck wo IV con IMPRESSION: 1. Prominent lingual and palatine tonsils. No evidence of abscess. 2. Enlargement of the right submandibular gland. Correlation with physical examination needed. 3. Bilateral ethmoid and maxillary sinus disease. 4. Partial right mastoid opacification.
[2023-09-17 01:03] VITALS: BP 116/71; PULSE 110; RESP 18; TEMP 37.2; O2SAT 98; BMI 31.9
[2023-09-17 01:34] VITALS: BP 124/92; PULSE 113; RESP 14; TEMP 36.5; O2SAT 97
[2023-09-17 01:40] LABS: IDNOW Serial# 08D9AD1C; Strep A Nucleic Acid Negative (Negative)
[2023-09-17 02:05] LABS: MANUAL DIFF FLAG NO
[2023-09-17 02:06] LABS: Basophils Absolute Auto 0.1 X10*3/uL (0.0-0.2); Basophils Percent Auto 0.8 % (0-2); Eosinophils Absolute Auto 0.1 X10*3/uL (0.0-0.4); Eosinophils Percent Auto 0.8 % (0-4); Hemoglobin 12.4 g/dl (12.0-16.0); Imm Gran Abs Auto 0.02 X10*3/uL (0.00-0.03); Imm Gran Pct Auto 0.3 % (0.0-0.4); Lymphocytes Absolute Auto 2.1 X10*3/uL (1.2-4.9); Lymphocytes Percent Auto 27.2 % (20-40); Mean Corpuscular HGB Conc 33.5 g/dl (31.0-35.0); Mean Corpuscular Hemoglobin 30.7 pg (27.0-33.0); Mean Corpuscular Volume 91.6 fL (80.0-98.0); Mean Platelet Volume 9.7 fL (9.4-12.3); Monocytes Absolute Auto 0.9 X10*3/uL (0.1-1.2); Monocytes Percent Auto 11.7 % (2-11); Neutrophils Absolute Auto 4.6 x10*3/uL (2.0-8.3); Neutrophils Percent Auto 59.2 % (45-73); Platelet Count 346 X10*3/uL (160-400); Red Blood Count 4.04 X10*6/uL (4.20-5.50); Red Cell Distribution Width 12.9 % (11.0-16.0); White Blood Count 7.8 X10*3/uL (4.8-10.8)
[2023-09-17 02:08] LABS: Influenza A PCR NEGATIVE (Negative); Influenza B PCR NEGATIVE (Negative); Resp Syncy Virus RNA Qual PCR NEGATIVE (Negative); SARS COV2 PCR INHOUSE NEGATIVE (Negative)
[2023-09-17 02:16] LABS: Lactic Acid 0.9 mmol/L (0.5-2.0)
[2023-09-17 02:20] LABS: Alanine Aminotransferase 9 U/L (0-31); Alkaline Phosphatase 88 U/L (39-117); Anion Gap 14 (12-20); Aspartate Amino Transferase 24 U/L (5-31); Bilirubin Direct < 0.2 mg/dL (0.0-0.5); Bilirubin Total 0.2 mg/dL (0.0-1.0); Blood Urea Nitrogen 10 mg/dL (9-16); Calcium 8.6 mg/dL (8.4-10.2); Carbon Dioxide 22 mmol/L (22-29); Chloride 107 mmol/L (96-108); Creatinine Clr Calc Pharmacy 91.3; Estimated Glomerular Filt Rate > 60; Glucose Random 107 mg/dL (60-115); Potassium 3.7 mmol/L (3.3-5.1); Sodium 139 mmol/L (135-145); Total Protein 7.5 g/dL (6.5-8.0)
[2023-09-17] MEDS: Morphine Sulfate 4 MG/ML CARTRIDGE IVPUSH ×2 (02:32→03:53)
[2023-09-17 02:34] LABS: C Reactive Protein 3.09 mg/dL (< or = 0.50)
[2023-09-17] MEDS: 0.9 % Sodium Chloride 1,000 ML 999 ML IV (02:42)
[2023-09-17] MEDS: Ampicillin Sodium/Sulbactam Na 3 GM in 0.9 % Sodium Chloride 100 ML IV (03:47)
--- NOTE | 2023-09-17 03:50 | ED.GENADULT ---
HPI - General Adult General Chief complaint: General Medical Stated complaint: gen med? Time Seen by Provider: 09/17/23 02:22 History of Present Illness HPI narrative: Patient is a 43-year-old female who has had a sore throat for about 2 weeks. She was seen here 10 days ago and had negative testing and was discharged with viral pharyngitis instructions. She says that the pain has gotten worse particularly on the right side. She feels that she has had increased swelling and discomfort on the right side of her throat and neck and the pain radiates into her right ear. She does not know if she has had a fever. Related Data Previous Rx's Medication Instructions Recorded amoxicillin 875 mg-potassium 1 tab PO BID #10 tabs 02/05/23 clavulanate 125 mg tablet oxycodone-acetaminophen 5 mg-325 1 tab PO Q4-6H PRN pain #20 tabs 02/05/23 mg tablet (Percocet) oxycodone-acetaminophen 5 mg-325 1 tab PO Q4-6H PRN pain #10 tabs 02/07/23 mg tablet (Percocet) naloxone 4 mg/actuation nasal 4 mg intranasal Q2M PRN opioid 02/27/23 spray (Narcan) overdose #2 ea ketorolac 10 mg tablet 10 mg PO TID PRN pain 5 days #15 04/14/23 tabs amoxicillin 875 mg-potassium 1 tab PO BID #20 tabs 09/17/23 clavulanate 125 mg tablet morphine 15 mg immediate release 15 mg PO Q6H PRN pain #8 tabs 09/17/23 tablet Allergies Allergy/AdvReac Type Severity Reaction Status Date / Time fluticasone [From FLONASE] Allergy Severe NOSEBLEEDS/ Verified 09/06/23 10:55 CLAMMY ibuprofen [Ibuprofen] Allergy Intermediate HIVES Verified 09/06/23 10:55 latex [Latex] Allergy Mild RASH Verified 09/17/23 01:03 Iodinated Contrast Media Allergy Unknown ITCHY ( Verified 09/17/23 01:03 [IV Dye, Iodine Containing] CONTRAST FOR CT ) sulfamethoxazole AdvReac Unknown NAUSEA & Verified 09/06/23 10:55 [From BACTRIM] VOMITING trimethoprim [From BACTRIM] AdvReac Unknown NAUSEA & Verified 09/17/23 01:03 VOMITING From Advair Diskus Allergy Intermediate SHORTNESS Uncoded 10/20/23 11:08 OF BREATH Advair HFA Allergy Unknown chest pain Uncoded 04/14/23 11:08 Flonase Allergy Unknown headaches, Uncoded 04/14/23 11:08 nose bleeds Ibuprofen Allergy Unknown upset Uncoded 01/04/23 00:43 stomach Latex Gloves Allergy Unknown rash Uncoded 01/04/23 00:43 Sulfa Allergy Unknown hives Uncoded 01/04/23 00:43 Contrast Dye AdvReac Unknown hives Uncoded 01/04/23 00:43 Review of Systems Review of Systems: Yes all other systems are reviewed and are negative PMFSH Past Medical History Medical History Active substance abuse Morbid obesity UTI (urinary tract infection) Acute cholecystitis Active substance abuse Gallstones Social History Social History Household Members: Other Housing: Apartment Do you presently have visiting nurse or other home services: No Alcohol intake: current Alcohol intake frequency: holidays/special occasions only Alcohol type: hard liquor Patient Tobacco Use Status: Current everyday Tobacco user Tobacco use type: Cigarette Smoked in Last 30 Days: Yes Second Hand Smoke Exposure: Yes Use of substances other than those prescribed or required for medical reasons: Yes Substance Use Type: Crack/Cocaine Advance Directives: No Advance Directives Information Provided: No Patient : No Physical Exam ED Vital Signs: Vital Signs - 24 hr 09/17/23 01:03 09/17/23 01:34 09/17/23 03:59 Temperature 99.0 F 97.7 F 97.6 F Pulse Rate 110 H 113 H 83 Respiratory Rate 18 14 14 Blood Pressure 116/71 124/92 H 121/77 Pulse Oximetry 98 97 100 Oxygen Delivery Method Room Air Room Air Room Air 09/17/23 05:05 Temperature 97.6 F Pulse Rate 83 Respiratory Rate 14 Blood Pressure 121/77 Pulse Oximetry 100 Oxygen Delivery Method Room Air BMI result Body Mass Index 31.9 Const Other: The patient is awake and alert. She was cooperative. She seemed mildly unwell. HENMT Other: The patient had a very large right-sided tonsil with significant exudate present. No definite soft tissue swelling of the right soft palate. No trismus. Eyes Other: Pupils are round equal, conjunctivae are clear, extraocular movements intact Neck Other: The patient has a large right jugulodigastric lymph node Resp Effort & Inspection: normal respiratory effort Auscultation: clear to auscultation bilaterally Cardio Jugular venous distension: no JVD Rate: regular rate Rhythm: regular rhythm Heart sounds: S1 normal heart sound present and S2 normal heart sound present GI Other: Abdomen was soft and nontender Skin Other: No rash Neuro Other: The patient was awake and alert with a normal mental status. Cranial nerves are grossly intact. She moves her extremities symmetrically. She is grossly neurologically intact. Extrem Other: No peripheral edema Medications Administered Discontinued Medications Generic Name Dose Route Start Last Admin Trade Name Freq PRN Reason Stop Dose Admin Promethazine HCl 12.5 mg/ 50.5 mls @ 202 mls/hr 09/17/23 02:25 09/17/23 02:49 Sodium Chloride IV 09/17/23 02:26 Infused ONCE ONE Infusion Sodium Chloride 1,000 mls @ 999 mls/hr 09/17/23 02:30 09/17/23 03:39 Ns IV 09/17/23 03:30 Infused .Q1H1M ROBERT Infusion Ampicillin Sodium/Sulbactam 100 mls @ 200 mls/hr 09/17/23 03:38 09/17/23 04:58 Sodium 3 gm/ Sodium Chloride IV 09/17/23 04:07 Infused ONCE ONE Infusion Morphine Sulfate 4 mg 09/17/23 02:25 09/17/23 02:32 Morphine Sulfate 4 Mg/Ml Cartridge IVPUSH 09/17/23 02:26 4 mg ONCE ONE Administration Protocol Morphine Sulfate 4 mg 09/17/23 03:50 09/17/23 03:53 Morphine Sulfate 4 Mg/Ml Cartridge IVPUSH 09/17/23 03:51 4 mg ONCE ONE Administration Protocol Medical Decision Making Medical Decision Making MDM Narrative: The patient is a 43-year-old who presents with worsening sore throat over the last 2 weeks. Her symptoms are distinctly right-sided. She has a very large right tonsil with exudate and a very large right jugulodigastric lymph node. CT scan does not show an abscess. She received a dose of IV Unasyn in the emergency department. She will be discharged on Augmentin. Lab Data 09/17/23 02:01 09/17/23 02:01 Labs: Lab Results 09/17/23 09/17/23 Range/Units 01:25 02:01 WBC 7.8 (4.8-10.8) X10*3/uL RBC 4.04 L (4.20-5.50) X10*6/uL Hgb 12.4 (12.0-16.0) g/dl Hct 37.0 (37.0-47.0) % MCV 91.6 (80.0-98.0) fL MCH 30.7 (27.0-33.0) pg MCHC 33.5 (31.0-35.0) g/dl RDW 12.9 (11.0-16.0) % Plt Count 346 (160-400) X10*3/uL MPV 9.7 (9.4-12.3) fL Immature Gran % (Auto) 0.3 (0.0-0.4) % Neut % (Auto) 59.2 (45-73) % Lymph % (Auto) 27.2 (20-40) % Hitchcock % (Auto) 11.7 H (2-11) % Eos % (Auto) 0.8 (0-4) % Baso % (Auto) 0.8 (0-2) % Lymph # (Auto) 2.1 (1.2-4.9) X10*3/uL Hitchcock # (Auto) 0.9 (0.1-1.2) X10*3/uL Eos # (Auto) 0.1 (0.0-0.4) X10*3/uL Baso # (Auto) 0.1 (0.0-0.2) X10*3/uL Abs Immat Gran (auto) 0.02 (0.00-0.03) X10*3/uL Absolute Neuts (auto) 4.6 (2.0-8.3) x10*3/uL Absolute Nucleated RBC 0.000 (0.0-0.012) X10*3/uL Nucleated RBC % (auto) 0.0 (0.0-0.2) /100WBC Sodium 139 (135-145) mmol/L Potassium 3.7 (3.3-5.1) mmol/L Chloride 107 (96-108) mmol/L Carbon Dioxide 22 (22-29) mmol/L Anion Gap 14 (12-20) BUN 10 (9-16) mg/dL Creatinine 0.82 (0.5-1.4) mg/dL Estim Creat Clear Calc 91.3 Estimated GFR > 60 Random Glucose 107 (60-115) mg/dL Lactic Acid 0.9 (0.5-2.0) mmol/L Calcium 8.6 (8.4-10.2) mg/dL Total Bilirubin 0.2 (0.0-1.0) mg/dL Direct Bilirubin < 0.2 (0.0-0.5) mg/dL AST 24 (5-31) U/L ALT 9 (0-31) U/L Alkaline Phosphatase 88 (39-117) U/L C-Reactive Protein 3.09 H (< or = 0.50) mg/dL Total Protein 7.5 (6.5-8.0) g/dL Albumin 3.0 L (3.5-5.0) g/dL Influenza Type A (PCR) NEGATIVE (Negative) Influenza Type B (PCR) NEGATIVE (Negative) RSV RNA Qual (PCR) NEGATIVE (Negative) SARS-CoV-2 RNA (RT-PCR) NEGATIVE (Negative) S. pyogenes GrpA JESICA Negative (Negative) Discharge Plan Discharge Clinical Impression: Acute tonsillitis Patient Disposition: Home, Self-Care Additional Instructions: You have been prescribed an antibiotic, amoxicillin/clavulanate, also known as Augmentin. Please apple picker this prescription later this morning and start taking it this morning. Take the medication 2 times a day, approximately every 12 hours. Take the whole course of the medication. Also take 2 extra-strength acetaminophen (Tylenol) up to 3 times a day as needed for pain. Additionally you may use the morphine tablets prescribed as needed for pain. Sour candies like lemon drops which encourage salivation may also be helpful. Please work on getting a primary care doctor. Return to the emergency room if worse. Prescriptions: New amoxicillin-pot clavulanate 875-125 mg tablet 1 tab PO BID Qty: 20 0RF morphine 15 mg tablet 15 mg PO Q6H PRN (Reason: pain) Qty: 8 0RF Rx Instructions: Partial Fill upon patient request. No Action oxycodone-acetaminophen [Percocet] 5-325 mg tablet 1 tab PO Q4-6H PRN (Reason: pain) Qty: 10 0RF Rx Instructions: Partial Fill upon patient request. oxycodone-acetaminophen [Percocet] 5-325 mg tablet 1 tab PO Q4-6H PRN (Reason: pain) Qty: 20 0RF Rx Instructions: Partial Fill upon patient request. amoxicillin-pot clavulanate 875-125 mg tablet 1 tab PO BID Qty: 10 0RF naloxone [Narcan] 4 mg/actuation spray,non-aerosol 4 mg intranasal Q2M PRN (Reason: opioid overdose) Qty: 2 0RF Rx Instructions: spray 1 dose into ONE nostril; alternate nostrils w each dose until help arrives ketorolac 10 mg tablet 10 mg PO TID PRN (Reason: pain) 5 Days Qty: 15 0RF Interventions: ED Discharge Assessment Last Done: 09/17/23 05:05 Discharge Date/Time: 09/17/23 05:06
[2023-09-17 03:59] VITALS: BP 121/77; PULSE 83; RESP 14; TEMP 36.4; O2SAT 100
[2023-09-17 05:05] VITALS: BP 121/77; PULSE 83; RESP 14; TEMP 36.4; O2SAT 100
== END 2023-09-17 05:06 | disposition home or self-care (01) ==
PROVIDERS: Emergency Medicine; Emergency Provider Emergency Medicine
DX: J03.90 Acute tonsillitis, unspecified (principal); Z11.52 Encounter for screening for COVID-19; Z20.828 Contact with and (suspected) exposure to other viral communicable diseases
CPT/HCPCS: 0241U; 36415; 70490; 80048; 80076; 83605; 85025; 86140; 87040; 87651; 96361; 96365; 96367; 96375; 96376; 99284; J0295; J2270; J2550

== ENCOUNTER 2023-10-17 09:11 | Emergency (ER) | payer OTHER, SELFPAY ==
[2023-10-17] VITALS (9 sets, daily range): BP systolic 87–114; BP diastolic 53–77; PULSE 86–103; RESP 12–20; TEMP 36.3–36.6; O2SAT 95–100; BMI 27.4
--- NOTE | ~2023-10-17 | CT_ITS ---
EXAMINATION: CT HEAD WITHOUT CONTRAST CLINICAL INFORMATION: Altered mental status COMPARISON: None available. TECHNIQUE: Contiguous axial imaging was performed from the skull base to vertex without intravenous administration of contrast. This CT examination was performed using dose optimization techniques as appropriate, variously including the following: *Automated exposure control *Adjustment of mA and/or kV according to patient size (this includes techniques or standardized protocols for targeted exams where dose is matched to indication/reason for exam; i.e. extremities or head) *Use of iterative reconstruction technique DLP: 607 mGy-cm FINDINGS: Intracranial structures are normal in appearance. Tariq-white matter differentiation is preserved. No evolving infarct, mass lesion, mass effect, midline shift, hemorrhage or extra-axial fluid collections are identified. Ethmoid and bilateral maxillary sinus disease is present. Minimal mucosal thickening identified frontal sinuses. Partial opacification right inferior mastoid. Bony structures are intact. Soft tissues are unremarkable. CT/CT head/brain wo IV con IMPRESSION: No acute intracranial pathology. Sinus disease.
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
--- NOTE | 2023-10-17 09:36 | ECG_ITS ---
Test Reason : OVERDOSE Blood Pressure : / mmHG Vent. Rate : 107 BPM Atrial Rate : 107 BPM P-R Int : 152 ms QRS Dur : 072 ms QT Int : 348 ms P-R-T Axes : 057 023 041 degrees QTc Int : 464 ms Sinus tachycardia Possible Left atrial enlargement Borderline ECG No previous ECGs available Referred By: Rebecca Ford Electronically Signed By:CHILO SOLANO MD
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
[2023-10-17 10:00] LABS: Basophils Absolute Auto 0.1 X10*3/uL (0.0-0.2); Eosinophils Absolute Auto 0.2 X10*3/uL (0.0-0.4); Eosinophils Percent Auto 2.4 % (0-4); Hematocrit 41.1 % (37.0-47.0); Hemoglobin 13.6 g/dl (12.0-16.0); Imm Gran Abs Auto 0.05 X10*3/uL (0.00-0.03); Imm Gran Pct Auto 0.6 % (0.0-0.4); Lymphocytes Absolute Auto 3.7 X10*3/uL (1.2-4.9); Lymphocytes Percent Auto 47.2 % (20-40); MANUAL DIFF FLAG SCAN; Mean Corpuscular HGB Conc 33.1 g/dl (31.0-35.0); Mean Corpuscular Hemoglobin 30.6 pg (27.0-33.0); Mean Corpuscular Volume 92.4 fL (80.0-98.0); Monocytes Absolute Auto 0.5 X10*3/uL (0.1-1.2); Monocytes Percent Auto 6.8 % (2-11); Neutrophils Absolute Auto 3.3 x10*3/uL (2.0-8.3); PLT CLUMP 1; Red Blood Count 4.45 X10*6/uL (4.20-5.50); Red Cell Distribution Width 14.2 % (11.0-16.0); SCAN SMEAR FLAG 1
[2023-10-17 10:20] LABS: Alanine Aminotransferase 11 U/L (0-31); Albumin Level 3.7 g/dL (3.5-5.0); Alkaline Phosphatase 81 U/L (39-117); Anion Gap 14 (12-20); Aspartate Amino Transferase 35 U/L (5-31); Bilirubin Direct < 0.2 mg/dL (0.0-0.5); Bilirubin Total 0.2 mg/dL (0.0-1.0); Blood Urea Nitrogen 16 mg/dL (9-16); Calcium 8.7 mg/dL (8.4-10.2); Carbon Dioxide 21 mmol/L (22-29); Chloride 109 mmol/L (96-108); Creatinine Clr Calc Pharmacy 103.7; Estimated Glomerular Filt Rate > 60; Ethanol 126 mg/dL; Glucose Random 99 mg/dL (60-115); Magnesium 2.3 mg/dL (1.6-2.6); Potassium 4.8 mmol/L (3.3-5.1); Sodium 139 mmol/L (135-145)
[2023-10-17 10:23] LABS: HCG Quantitative < 2 mIU/mL
--- NOTE | 2023-10-17 11:06 | PC.NURSE ---
pt to CT at this time.
[2023-10-17 11:11] LABS: White Blood Count 7.9 X10*3/uL (4.8-10.8)
[2023-10-17 11:12] LABS: SLIDE REVIEW VERIFIED
--- NOTE | 2023-10-17 11:19 | PC.NURSE ---
pt returned from CT at this time. vss and up to date aside from remaining slightly hypotensive. dr. amaro bedside/aware. pt sinus tachy on the cardiac cath lab radiology technologist. HR between 105-110bpm. pt continues to be lethargic and responsive to physical stimuli. nonresponsive to verbal stimuli at this time. agitated/combative when awoken then goes right back to bed. pt continues to rest on RA w/o difficulties. no sob/wob shown. respirations remain even and unlabored. call de la rosa placed within reach.
--- NOTE | 2023-10-17 13:11 | PC.NURSE ---
pt becoming slightly more alert but remains groggy. responsive to verbal and physical stimuli. pt no longer referred to as ulisses kallie as pt told this customs entry writer her first and last name as well as birthday. registration notified. new band placed on pt. pt reposotioned to comfort/sitting upright w/ eyes closed. snacks/juice placed bedside for convenience. respirations remain even and unlabored. plan of care ongoing.
--- NOTE | 2023-10-17 15:45 | PC.NURSE ---
pt moved from ED13 to ED13H at this time. pt slightly more alert at this time - asking questions, following commands appropriately. pt provided w/ pb & j, saltines and apple juice. per dr. amaro - d/c is in - when pt is more alert and oriented - pt can be provided w/ take home narcan and be discharged. plan of care ongoing at this time.
--- NOTE | 2023-10-17 19:56 | PC.NURSE ---
This RN assumed pt care @ 1900. Pt resting comfortably in bed. Plan of care ongoing.
--- NOTE | 2023-10-17 22:44 | PC.NURSE ---
Pt refused the take home narcan.
== END 2023-10-17 22:44 | disposition home or self-care (01) ==
PROVIDERS: Emergency Provider Emergency Medicine
DX: F19.10 Other psychoactive substance abuse, uncomplicated (principal); F10.10 Alcohol abuse, uncomplicated; Y90.6 Blood alcohol level of 120-199 mg/100 ml; R00.0 Tachycardia, unspecified; Z90.49 Acquired absence of other specified parts of digestive tract; Z87.440 Personal history of urinary (tract) infections; Z79.899 Other long term (current) drug therapy
CPT/HCPCS: 36415; 70450; 80048; 80076; 80307; 83735; 84702; 85025; 93005; 99285

== ENCOUNTER → 2023-10-17 09:36 | Outpatient (BNV) | payer SELFPAY | PROVIDERS: Emergency Provider Emergency Medicine; Visit Provider Internal Medicine Cardiovascular Disease | DX: R00.0 Tachycardia, unspecified (principal) | CPT/HCPCS: 93010 ==

== ENCOUNTER 2024-11-05 02:23 | Emergency (ER) | payer OTHER, SELFPAY ==
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
[2024-11-05 02:32] VITALS: BP 128/96; BP 90/68; PULSE 111; PULSE 89; RESP 18; TEMP 36.6; O2SAT 96; O2SAT 98; BMI 39.5
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
[2024-11-05] MEDS: Ondansetron ODT 4 MG TAB.RAPDIS TRANSLINGU (04:17)
--- NOTE | 2024-11-05 04:24 | PC.NURSE ---
Pt is dry heaving, reporting feeling nauseas. Two failed attempts at obtaining an IV line. Pt medicated for nausea via PO. Tolerated well. Pending ct scan results. Pt is aware of plan of care.
[2024-11-05 06:44] VITALS: BP 111/68; PULSE 97; RESP 14; TEMP 36.8; O2SAT 98
[2024-11-05] MEDS: Acetaminophen 325 MG TABLET 650 MG PO (06:47)
[2024-11-05 07:02] VITALS: BP 111/68; PULSE 97; RESP 14; TEMP 36.8; O2SAT 98
== END 2024-11-05 07:04 | disposition home or self-care (01) ==
PROVIDERS: Emergency Provider Emergency Medicine
DX: S09.90XA Unspecified injury of head, initial encounter (principal); S30.1XXA Contusion of abdominal wall, initial encounter; S20.212A Contusion of left front wall of thorax, initial encounter; Y04.8XXA Assault by other bodily force, initial encounter; Y93.9 Activity, unspecified; Y92.9 Unspecified place or not applicable; Y99.9 Unspecified external cause status
CPT/HCPCS: 70450; 71101; 71250; 74176; 99284

== ENCOUNTER → 2024-11-05 02:40 | Outpatient (BNV) | payer MEDICAID, SELFPAY | PROVIDERS: Emergency Provider Emergency Medicine; Visit Provider Radiology Diagnostic Radiology | DX: S39.91XA Unspecified injury of abdomen, initial encounter (principal); R10.9 Unspecified abdominal pain; M47.812 Spondylosis without myelopathy or radiculopathy, cervical region; R07.89 Other chest pain; Y04.2XXA Assault by strike against or bumped into by another person, initial encounter; S09.93XA Unspecified injury of face, initial encounter; W19.XXXA Unspecified fall, initial encounter | CPT/HCPCS: 70450; 71101; 71250; 72125; 74176 ==

== ENCOUNTER 2024-11-05 07:06 | Emergency (ER) | payer MEDICAID, SELFPAY ==
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
[2024-11-05 07:13] VITALS: BP 101/70; PULSE 80; RESP 18; TEMP 36.8; O2SAT 97; BMI 39.5
--- NOTE | 2024-11-05 08:27 | PC.NURSE ---
Pt ambulating to [facility].
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
[2024-11-05] MEDS: Cyclobenzaprine HCl 10 MG TABLET PO (08:31)
[2024-11-05] MEDS: Acetaminophen 325 MG TABLET 975 MG PO (08:31)
[2024-11-05] MEDS: Lidocaine 4 % Patch ADH..PATCH 1 PATCH TRANSDERMA (08:32)
[2024-11-05 10:29] VITALS: BP 101/70; PULSE 80; RESP 18; TEMP 36.8; O2SAT 97
== END 2024-11-05 10:36 | disposition home or self-care (01) ==
PROVIDERS: Emergency Provider Emergency Medicine
DX: S20.212A Contusion of left front wall of thorax, initial encounter (principal); Y04.8XXA Assault by other bodily force, initial encounter; Y93.9 Activity, unspecified; Y92.480 Sidewalk as the place of occurrence of the external cause; Y99.9 Unspecified external cause status; Z72.89 Other problems related to lifestyle; Z63.0 Problems in relationship with spouse or partner
CPT/HCPCS: 72125; 99284